=== PATIENT | female | born 1940 | race Caucasian/White ===

== ENCOUNTER → 2016-09-18 | Outpatient (CLI) | payer MEDICARE ==
[2016-09-18 18:58] LABS: BLOOD UREA NITROGEN 14 MG/DL (7-18); CREATININE FOR GFR 0.71 MG/DL (0.55-1.02); GLOMERULAR FILTRATION RATE > 60.0 (>39)
== END ==
LOC: M SMT 11:01
PROVIDERS: ATTEND Orthopaedic Surgery
DX: M65.812 Other synovitis and tenosynovitis, left shoulder (principal)

== ENCOUNTER → 2016-10-07 | Outpatient (REF) | payer MEDICARE | LOC: M LAB REF 12:50 | PROVIDERS: ATTEND Internal Medicine Medical Oncology | DX: C50.919 Malignant neoplasm of unspecified site of unspecified female breast (principal) ==

== ENCOUNTER → 2016-10-16 | Outpatient (CLI) | payer MEDICARE ==
--- NOTE | 2016-10-16 13:25 | REP ---
PET/CT: History: Restaging breast carcinoma. Comparisons: Comparison radionuclide bone scan April 01, 2016. Comparison CT study of the abdomen and pelvis August 18, 2015. TECHNIQUE: 89 minutes following the intravenous injection of a 8.3 mCi dose of F-18 FDG, three-dimensional PET scintigraphy is acquired from the skull base to the proximal thighs. Triplanar noncontrast CT scanning is acquired through the same anatomic range for attenuation correction, and image registration with scan parameters optimized to minimize radiation exposure to the patient. PET scintigraphy and CT datasets were fused and displayed on a workstation with multiplanar and projection display capability. PET/CT Findings: The head and neck soft tissues are unremarkable. No abnormal hypermetabolic uptake is seen within the thorax. CT study shows an old healed fracture of the right clavicle. No abnormal hypermetabolic rib or spine uptake is appreciated. No abnormal pulmonary parenchymal hypermetabolic uptake is seen. In the abdomen and pelvis, normal hepatic, splenic, gastrointestinal, and genitourinary FDG accumulation is seen. There is diffuse skin thickening of the left breast with non-hypermetabolic FDG accumulation. Impression: Negative PET scintigraphy. No PET/CT evidence of metastatic disease. Signed by Jovan Miner MD 10/16/2016 10:46 P
== END ==
LOC: M RAD 09:12
PROVIDERS: ATTEND Internal Medicine Medical Oncology
DX: C50.911 Malignant neoplasm of unspecified site of right female breast (principal)
CPT/HCPCS: 78815; A9552

== ENCOUNTER → 2016-10-18 | Outpatient (CLI) | payer MEDICARE ==
--- NOTE | 2016-10-23 10:12 | RADONC ---
RADIATION ONCOLOGY CONSULTATION NOTE: DATE OF SERVICE: 10/18/2016 DIAGNOSIS: Breast cancer. STAGE: Stage is IV ECOG PERFORMANCE STATUS: 1 Ms. 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 HISTORY OF PRESENT ILLNESS: The patient's history is quite complex. She has had multiple malignancies and has removed from state to state. She has been treated in numerous different medical oncology and radiation oncology sites. I do not have any of the actual information regarding these treatments at this time other than one report of treatment to her right clavicle for bone metastasis in the year 1998. To my understanding, a brief summary goes as follows: Apparently in 1996, the patient was found to have a left breast cancer. She was treated for that. Two years later, she developed bone metastases and was treated by a Dr. Irwin Hurtado to a dose of 4000 cGy to her right clavicle. Treatment was completed on December 15, 1998. Her medical oncologist at that time was Dr. Amparo Valiente in [place]. The patient subsequently was found to have a colon cancer in the year 1999 and underwent surgery with full resection. According to the patient, there was no postoperative radiation or chemo given. She reports that this surgery was done at [place]. Apparently the patient did well until 2005 when she developed right-sided breast cancer. She did receive some type of chemotherapy, according to the patient, in [place]. Somewhere intermixed in this, the patient says she was treated in [place] as well. She is now presenting with pain in the left upper humeral region. Once again in summary, the patient was treated of multiple centers and multiple studies in [facility], [place] and [place]. We are having a very difficult time obtaining records for a consistent history. At the present time, we do know that the patient has pain in her right proximal humerus and has had a diagnosis of breast cancer since 1996, which has been metastatic since at least 1998 for a 20-year history of breast cancer. PAST MEDICAL HISTORY: The patient's past medical history, besides her multiple malignancies, is positive for arthritis and bronchitis. The patient's past medical history in addition the above, is positive for a lymphoma of the skin in 1969, a hysterectomy in 1977, some type of exploratory surgery of the bladder in 1982 as well as her colon surgeries and breast history. She does note history of a broken left femur for which she had a jean carlos placed in the left femur. ALLERGIES: The patient is allergic to NAPROSYN, IBUPROFEN, FENTANYL patches, CIPRO, NITROFURANTOIN, CODEINE, PENICILLIN, DEMEROL, CIPRO, ANASTROZOLE and DETROL. SOCIAL HISTORY: The patient has smoked one pack of cigarettes per day for 40 years. She does not abuse alcohol. FAMILY HISTORY: The patient's family history is positive for a brother with colon cancer and a sister with some type of brain tumor. She also has a sister with cervical . REVIEW OF SYSTEMS: The patient's review of systems is positive for dry skin, anxiety, weakness in her left arm and shoulder and numbness in her left hand as well as decreased energy. It is otherwise noncontributory. She denies nausea, vomiting, fevers, chills, night sweats, opiate headaches, anorexia, weight loss, chest pain, urinary or bowel difficulties or neurological problems. PHYSICAL EXAMINATION: The patient is a well-developed, well-nourished female in no acute distress. HEENT exam is normocephalic, atraumatic. Extraocular movements are intact. There is no palpable cervical, supraclavicular, infraclavicular, axillary, or inguinal lymphadenopathy present. Lungs are clear to auscultation and percussion. Heart has a regular rate and rhythm. Abdomen is benign with no hepatosplenomegaly, masses, or tenderness. Skeletal examination: There is acute tenderness present over the proximal left humerus. There is no other tenderness present over the skeletal system. Extremities reveal no clubbing, cyanosis, or edema. Neurologic exam is grossly intact, as is the remainder of the physical examination. ASSESSMENT: At this time, I do believe this patient is a candidate for palliative radiation therapy to her left humerus. I do not, at the present time, have her full radiation records. I do not have radiation records of the right breast or the left breast. I do not have her chemotherapy records. I do not have a CD of the MRI done at [facility] showing her humeral lesion. And in addition, we have been calling various sites where we have been told there are no records. Of course these records now can be up to 20 years old. This is making this quite difficult. Once we obtain all records, I am scheduling the patient for CT simulation of her left humeral field. I explained to the patient in detail the potential benefits as well as possible acute and chronic sequelae of external beam radiation therapy. We discussed logistics of treatment planning, simulation, subsequent fractionated daily radiation treatments. Thank you for allowing us to participate in the care of this complicated case. I will keep you informed as to any new developments as they occur. As always warm regards, cc: *America Varghese, DO
== END ==
LOC: M ONCR 10:55
PROVIDERS: ATTEND Radiology Radiation Oncology
DX: C50.911 Malignant neoplasm of unspecified site of right female breast (principal)

== ENCOUNTER 2016-10-24 08:40 | Outpatient (RCR) | payer MEDICARE ==
--- NOTE | 2016-10-24 09:59 | RADONC ---
RADIATION ONCOLOGY SIMULATION NOTE: DATE: 10/24/2016 CHART NO: [id number] Ms. French was taken to the CT scan for CT simulation of her left humerus field. We attempted to make an immobilization device as well. I was physically present throughout this process. Unfortunately, we had difficulty having the patient fit into our small-bore CT scan. In addition, without the ability to use a breast board, we were unable to remove the patient's treated breast from potential radiation field of the humerus. The breast was laying right over the humerus. In addition, although I do not have the radiation records, we could see radiation telangiectasia and radiation skin changes present over the entire left breast including quite near our radiation field We, therefore, aborted our attempt at simulation this time. We will be bringing the patient to the linear accelerator in an attempt to undertake clinical two-dimensional simulation. This should allow us to give the patient the ability to lay in a more comfortable position and perhaps use a breast board. This will facilitate the ability to remove the treated breast from our radiation field. I am scheduling this new simulation for next week. That will allow us further time to attempt and obtain the records of her radiation which was delivered 20 years ago in 1996. I am not optimistic that those records will be available to us. If we cannot obtain those records, greater care will need to be undertaken to avoid any potential overlap. The humerus should not have been anywhere within the previous radiated field.
--- NOTE | 2016-11-02 15:00 | RADONC ---
RADIATION ONCOLOGY DATE: 10/31/2016 SIMULATION NOTE CHART NUMBER: [id number] Ms. French was taken to the linear accelerator today for simulation of her left humeral field. Simulation was accomplished, but took quite some time. An immobilization device was created and will be used throughout the course of treatment. Once again, I was physically present throughout the course of traditional simulation.
--- NOTE | 2016-11-12 09:19 | RADONC ---
RADIATION ONCOLOGY PROGRESS NOTE: DATE: 11/11/2016 CHART NO: [id number] REVIEW OF SYSTEMS: Ms. French underwent her first fraction of 300 cGy to her left humerus today. It was tolerated without difficulty or discomfort. The patient's review of systems continues to be positive for pain in the left humeral area. She denies nausea, vomiting, fevers, chills, night sweats, diplopia, headaches, anxiety or depression, anorexia, weight loss, visual disturbances, chest pain, urinary or bowel difficulties, bone pain, or neurological problems. PHYSICAL EXAMINATION: The patient's skin clearly showed no evidence of radiation change present. The remainder of her physical exam remains unchanged as well. Ms. French tolerated her treatment quite well and radiation will continue as scheduled.
== END 2016-11-17 ==
LOC: M ONCR 08:40
PROVIDERS: ATTEND Radiology Radiation Oncology
DX: C79.51 Secondary malignant neoplasm of bone (principal); C50.911 Malignant neoplasm of unspecified site of right female breast; C50.912 Malignant neoplasm of unspecified site of left female breast

== ENCOUNTER → 2016-10-24 | Outpatient (CLI) | payer MEDICARE | LOC: M RAD 08:20 | PROVIDERS: ATTEND Radiology Radiation Oncology | DX: C50.919 Malignant neoplasm of unspecified site of unspecified female breast (principal) ==

== ENCOUNTER 2016-11-18 13:42 | Outpatient (RCR) | payer MEDICARE ==
--- NOTE | 2016-11-18 14:23 | RADONC ---
RADIATION ONCOLOGY DATE: 11/18/2016 CHART NUMBER: [id number] PROGRESS NOTE Ms. French is presently at a dose of 1800 cGy to her left humerus and is tolerating treatments quite well at this point with no complaints related to her radiation therapy. She is having no skin discomfort or other problems. The patient reports that her pain is improved significantly after just a few treatments. REVIEW OF SYSTEMS: The patient's review of systems is generally noncontributory. Denies nausea, vomiting, fevers, chills, night sweats, diplopia, headaches, anxiety or depression, anorexia, weight loss, visual disturbances, chest pain, urinary or bowel difficulties, bone pain, or neurological problems. PHYSICAL EXAMINATION: The patient's skin is in good condition with no evidence of radiation change present. There is no moist or dry desquamation. The remainder of her physical exam remains unchanged. Ms. French is tolerating treatments quite well and radiation will continue as scheduled.
--- NOTE | 2016-11-25 11:39 | RADONC ---
RADIATION ONCOLOGY TREATMENT SUMMARY: DATE: 11/25/2016 CHART NO: [id number] DIAGNOSIS: Breast cancer. STAGE: IV ECOG PERFORMANCE STATUS: 1 Ms. French is a pleasant 75-year-old white female with metastatic breast cancer who presented to us for consideration of palliative radiation therapy to her left humerus. Her history is complicated and we are still attempting to obtain some records of her previous treatment but we have been unsuccessful so far. We treated the patient to her left humerus for a dose of 3000 cGy delivered in 10 fractions of 300 cGy each over 11 elapsed days from 11/11/2016 through 11/22/2016. The patient's left humerus was treated on a linear accelerator utilizing an 18 MV photon beam via left anterior oblique and right posterior oblique machuca. Care was taken to come off the previously irradiated left breast region. Ms. French tolerated her treatments quite well and was able to complete therapy as prescribed without interruption. The patient did note a marked improvement to total resolution of her left humerus pain by completion of therapy. I have scheduled the patient to see me again in 1 month for further followup. She will also continue to be followed by her other physicians as well. cc: Melita Mondragon MD *America Varghese DO
== END 2016-12-18 ==
LOC: M ONCR 13:42
PROVIDERS: ATTEND Radiology Radiation Oncology
DX: C79.51 Secondary malignant neoplasm of bone (principal); C50.911 Malignant neoplasm of unspecified site of right female breast; C50.912 Malignant neoplasm of unspecified site of left female breast

== ENCOUNTER → 2016-12-23 | Outpatient (REF) | payer MEDICARE | LOC: M LAB REF 12:38 | PROVIDERS: ATTEND Internal Medicine Medical Oncology | DX: C50.919 Malignant neoplasm of unspecified site of unspecified female breast (principal) ==

== ENCOUNTER → 2017-01-01 | Outpatient (CLI) | payer MEDICARE ==
--- NOTE | 2017-01-02 09:51 | RADONC ---
RADIATION ONCOLOGY FOLLOWUP NOTE DATE: 01/01/2017 CHART NUMBER: [id number] DIAGNOSIS: Breast cancer. STAGE: IV. ECOG performance status one. FOLLOW UP NOTE: Ms. French is a very pleasant 76-year-old white female with the diagnosis of metastatic breast cancer who is presenting to us today for routine followup visit 1 month post completion of palliative radiation therapy to her left humerus. The patient presents today reporting that her humeral pain has decreased significantly. She is now able to move her arm, although her range of motion is not totally returned to normal yet. It has improved significantly. The patient's review of systems is positive for her continued difficulty with range of motion and some discomfort in her left humerus, but is largely otherwise noncontributory. Denies nausea, vomiting, fevers, chills, night sweats, diplopia, headaches, anxiety or depression, anorexia, weight loss, visual disturbances, chest pain, urinary or bowel difficulties, bone pain, or neurological problems. PHYSICAL EXAMINATION: The patient is a well-developed, well-nourished, 76-year-old female in no acute distress. HEENT exam is normocephalic, atraumatic. Extraocular movements are intact. There is no palpable cervical, supraclavicular, infraclavicular, axillary, or inguinal lymphadenopathy present. Lungs are clear to auscultation and percussion. Heart has a regular rate and rhythm. Abdomen is benign with no hepatosplenomegaly, masses, or tenderness. Skeletal examination reveals no tenderness to pressure or percussion of the bony skeleton. Extremities reveal limited range of motion of her left upper extremity. No clubbing, cyanosis, or edema. Neurologic exam is grossly intact, as is the remainder of the physical examination. ASSESSMENT: The patient has clinically responded nicely to her radiation. She is presently being managed closely by her medical oncologist, Dr. Mondragon. I have scheduled her to see me again in 3 months for further followup. cc: MD America Leija DO MTDD
== END ==
LOC: M ONCR 15:07
PROVIDERS: ATTEND Radiology Radiation Oncology
DX: C50.911 Malignant neoplasm of unspecified site of right female breast (principal); C50.912 Malignant neoplasm of unspecified site of left female breast; C79.51 Secondary malignant neoplasm of bone

== ENCOUNTER → 2017-02-28 | Outpatient (CLI) | payer MEDICARE ==
[2017-02-28 14:34] LABS: ALBUMIN 3.6 GM/DL (3.2-5.2); ALBUMIN/GLOBULIN RATIO 1.33 (1.00-1.93); ALKALINE PHOSPHATASE 55 U/L (45-117); ALT/SGPT 19 U/L (12-78); ANION GAP 9 MEQ/L (8-16); AST/SGOT 12 U/L (15-37); BILIRUBIN,TOTAL 0.4 MG/DL (0.2-1.0); BLOOD UREA NITROGEN 22 MG/DL (7-18); CALCIUM LEVEL 8.6 MG/DL (8.8-10.2); CARBON DIOXIDE LEVEL 25 MEQ/L (21-32); CHLORIDE LEVEL 110 MEQ/L (98-107); CHOLESTEROL LEVEL 217 MG/DL (<200); FREE T4 1.07 NG/DL (0.76-1.46); GLOMERULAR FILTRATION RATE > 60.0 (>39); GLUCOSE, FASTING 147 MG/DL (83-110); POTASSIUM SERUM 4.6 MEQ/L (3.5-5.1); SODIUM LEVEL 144 MEQ/L (136-145); TOTAL PROTEIN 6.3 GM/DL (6.4-8.2); TRIGLYCERIDES LEVEL 137 MG/DL (<150)
== END ==
LOC: M SMT 10:41
PROVIDERS: ATTEND Family Medicine
DX: E11.42 Type 2 diabetes mellitus with diabetic polyneuropathy (principal); E78.2 Mixed hyperlipidemia

== ENCOUNTER → 2017-03-17 | Outpatient (REF) | payer MEDICARE | LOC: M LAB REF 16:25 | PROVIDERS: ATTEND Internal Medicine Medical Oncology | DX: C50.911 Malignant neoplasm of unspecified site of right female breast (principal) ==

== ENCOUNTER → 2017-04-08 | Outpatient (CLI) | payer MEDICARE ==
--- NOTE | 2017-04-08 15:00 | REP ---
PET/CT: History: Restaging breast carcinoma. Comparisons: Comparison PET/CT October 16, 2016. TECHNIQUE: 54 minutes following the intravenous injection of a 8.8 mCi dose of F-18 FDG, three-dimensional PET scintigraphy is acquired from the skull base to the proximal thighs. Triplanar noncontrast CT scanning is acquired through the same anatomic range for attenuation correction, and image registration with scan parameters optimized to minimize radiation exposure to the patient. PET scintigraphy and CT datasets were fused and displayed on a workstation with multiplanar and projection display capability. PET/CT Findings: There is no abnormal hypermetabolic uptake within the thorax. Post-treatment changes are noted in the left breast and an area of dystrophic calcification is noted in the right breast. Old healed rib fractures are noted. An old healed right clavicle fracture is visible. No abnormal skeletal hypermetabolic uptake is seen. In the abdomen and pelvis normal FDG distribution is seen. Impression: No abnormal hypermetabolic uptake seen. Signed by Jovan iMner MD 04/08/2017 03:54 P
== END ==
LOC: M PLARAD 11:25
PROVIDERS: ATTEND Internal Medicine Medical Oncology
DX: C50.911 Malignant neoplasm of unspecified site of right female breast (principal)
CPT/HCPCS: 78815; A9552

== ENCOUNTER → 2017-04-11 | Outpatient (CLI) | payer MEDICARE ==
--- NOTE | 2017-04-11 14:09 | REP ---
Whole body radionuclide bone scan: History: Restaging breast cancer. Comparison bone scan study April 01, 2016. Technique: 21.9 mCi technetium 99m MDP is injected and standard whole body bone scan imaging was acquired. Scintigraphic findings: There is normal distribution of skeletal tracer with uptake in bilateral kidneys and in the urinary bladder. Arthritic uptake is seen in the knees, shoulders, wrists, and in each midfoot unchanged from comparison study. There is degenerative uptake in the lower thoracic and lower lumbar spine as before. Right posterior 9th rib uptake is again seen unchanged. Right clavicle uptake is again noted. No new area of increased uptake is seen. Impression: Findings unchanged. No new area of increased uptake is seen to suggest metastatic disease. Signed by Jovan Miner MD 04/11/2017 03:22 P
== END ==
LOC: M RAD 09:32
PROVIDERS: ATTEND Internal Medicine Medical Oncology
DX: C50.912 Malignant neoplasm of unspecified site of left female breast (principal)
CPT/HCPCS: 78306; A9503

== ENCOUNTER → 2017-04-23 | Outpatient (CLI) | payer MEDICARE ==
--- NOTE | 2017-04-23 13:18 | RADONC ---
RADIATION ONCOLOGY FOLLOWUP DATE: 04/23/2017 CHART NUMBER: [id number] DIAGNOSIS: Breast cancer STAGE: IV ECOG PERFORMANCE STATUS: 1. FOLLOWUP NOTE: Ms. French is a 76-year-old white female with the diagnosis of metastatic breast cancer who is presenting to us today for routine followup visit 5 months post completion of palliative radiation therapy to her left humerus. The patient presents today reporting that generally she is stable with regard to her humeral discomfort. She does have some limited range of motion. She reports that the pain, however is better. She has no new complaints of bone pain. The patient had a lengthy discussion once again reporting that she wishes to change medical oncologists again and perhaps go back to [place]. She apparently is having some communication problems. REVIEW OF SYSTEMS: The patient's review of systems is positive for the physical limitations secondary to her age, as well as decreased range of motion and discomfort secondary to her metastatic bone disease, but is otherwise noncontributory. She denies nausea, vomiting, fevers, chills, night sweats, diplopia, headaches, anxiety or depression, anorexia or weight loss, visual disturbances, chest pain, urinary or bowel difficulties or neurological problems. PHYSICAL EXAMINATION: The patient is an elderly, white female in no acute distress. HEENT exam is normocephalic, atraumatic. Extraocular movements are intact. There is no palpable cervical, supraclavicular, infraclavicular or axillary lymphadenopathy present. Lungs are generally clear to auscultation and percussion. Heart has regular rate and rhythm. ASSESSMENT: The patient has no radiation issues at this time and is being seen by our colleagues in medical oncology on a routine basis. Since she is being followed and managed so closely by medical oncology, I have discharged her from our followup except on a p.r.n. basis. I did try and encourage her to stay with her medical oncologist for the simple reasons that she has changed doctors so many times and her record is so broken up that I continue to be concerned with continuity of care. In addition, the winter is coming and she has difficulties with transportation. Returning to [place] would be a bit of a burden. Clearly, however, the patient needs to be comfortable with her provider and feel secure in their care. I have highly recommended that she return to medical oncology and discuss her concerns so that a better working relationship can be achieved. I do personally think that she would be better served here than changing physicians again. cc: MD America Heredia, DO
== END ==
LOC: M ONCR 10:18
PROVIDERS: ATTEND Radiology Radiation Oncology
DX: C50.911 Malignant neoplasm of unspecified site of right female breast (principal); C50.912 Malignant neoplasm of unspecified site of left female breast; C79.51 Secondary malignant neoplasm of bone

== ENCOUNTER → 2017-06-16 | Outpatient (CLI) | payer MEDICARE ==
[2017-06-16 14:00] LABS: ALBUMIN 3.5 GM/DL (3.2-5.2); ALBUMIN/GLOBULIN RATIO 1.25 (1.00-1.93); ALKALINE PHOSPHATASE 49 U/L (45-117); ALT/SGPT 20 U/L (12-78); ANION GAP 10 MEQ/L (8-16); AST/SGOT 12 U/L (7-37); BILIRUBIN,TOTAL 0.5 MG/DL (0.2-1.0); BLOOD UREA NITROGEN 17 MG/DL (7-18); CALCIUM LEVEL 9.1 MG/DL (8.8-10.2); CARBON DIOXIDE LEVEL 25 MEQ/L (21-32); CHLORIDE LEVEL 106 MEQ/L (98-107); CHOLESTEROL LEVEL 212 MG/DL (<200); FREE T4 1.01 NG/DL (0.76-1.46); GLOMERULAR FILTRATION RATE > 60.0 (>39); GLUCOSE, FASTING 177 MG/DL (83-110); POTASSIUM SERUM 4.3 MEQ/L (3.5-5.1); SODIUM LEVEL 141 MEQ/L (136-145); TOTAL PROTEIN 6.3 GM/DL (6.4-8.2); TRIGLYCERIDES LEVEL 194 MG/DL (<150)
== END ==
LOC: M SMT 08:12
PROVIDERS: ATTEND Family Medicine
DX: E11.42 Type 2 diabetes mellitus with diabetic polyneuropathy (principal); E78.2 Mixed hyperlipidemia

== ENCOUNTER → 2017-10-14 | Outpatient (REF) | payer MEDICARE | LOC: M LAB REF 18:01 | DX: D23.12 Other benign neoplasm of skin of left eyelid, including canthus (principal) | CPT/HCPCS: 88304 ==

== ENCOUNTER → 2017-11-11 | Outpatient (CLI) | payer MEDICARE ==
[2017-11-11 14:14] LABS: BASO # 0.1 10^3/uL (0.0-0.2); BASO % 1.1 % (0.0-1.0); EOS # 0.3 10^3/uL (0.0-0.50); HEMATOCRIT 46.7 % (36.0-47.0); HEMOGLOBIN 15.5 g/dl (12.0-15.5); IMMATURE GRANULOCYTE % 0.3 % (0-3.0); LYMPH % 32.9 % (24.0-44.0); MEAN CORPUSCULAR HEMOGLOBIN 30.2 pg (27.0-33.0); MEAN CORPUSCULAR HGB CONC 33.2 g/dl (32.0-36.5); MEAN CORPUSCULAR VOLUME 90.9 fl (80.0-96.0); MONO # 0.9 10^3/uL (0.0-0.8); NEUTROPHILS # 4.9 10^3/uL (1.8-7.7); NEUTROPHILS % 52.7 % (36.0-66.0); PLATELET COUNT, AUTOMATED 313 10^3/uL (150-450); RED BLOOD COUNT 5.14 10^6/uL (4.00-5.40); RED CELL DISTRIBUTION WIDTH 13.6 % (11.5-14.5); WHITE BLOOD COUNT 9.2 10^3/uL (4.0-10.0)
[2017-11-11 15:38] LABS: ALBUMIN 3.9 GM/DL (3.2-5.2); ALKALINE PHOSPHATASE 57 U/L (45-117); ALT/SGPT 22 U/L (12-78); ANION GAP 8 MEQ/L (8-16); AST/SGOT 13 U/L (7-37); BILIRUBIN,TOTAL 0.4 MG/DL (0.2-1.0); BLOOD UREA NITROGEN 19 MG/DL (7-18); CARBON DIOXIDE LEVEL 26 MEQ/L (21-32); CHLORIDE LEVEL 106 MEQ/L (98-107); CREATININE FOR GFR 0.76 MG/DL (0.55-1.30); GLOMERULAR FILTRATION RATE > 60.0 (>39); GLUCOSE, FASTING 169 MG/DL (70-100); POTASSIUM SERUM 4.4 MEQ/L (3.5-5.1); SODIUM LEVEL 140 MEQ/L (136-145); TOTAL PROTEIN 6.9 GM/DL (6.4-8.2)
[2017-11-11 16:41] LABS: ESTIMATED AVERAGE GLUCOSE 163 MG/DL (60-110); HEMOGLOBIN A1c 7.3 %
== END ==
LOC: M SMT 08:24
DX: E11.42 Type 2 diabetes mellitus with diabetic polyneuropathy (principal); E78.2 Mixed hyperlipidemia; M54.5 Low back pain; R14.0 Abdominal distension (gaseous)
CPT/HCPCS: 80053

== ENCOUNTER → 2017-12-08 | Outpatient (CLI) | payer MEDICARE ==
[2017-12-08 14:50] LABS: FREE T4 1.03 NG/DL (0.76-1.46); THYROID STIMULATING HORMONE 0.828 uIU/ML (0.358-3.740)
== END ==
LOC: M SMT 12:06
DX: L29.8 Other pruritus (principal); M54.5 Low back pain; R14.0 Abdominal distension (gaseous); Z79.899 Other long term (current) drug therapy
CPT/HCPCS: 84443

== ENCOUNTER → 2018-06-29 | Outpatient (CLI) | payer MEDICARE ==
[2018-06-29 13:23] LABS: BASO # 0.1 10^3/uL (0.0-0.2); EOS # 0.3 10^3/uL (0.0-0.50); EOS % 3.2 % (0.0-3.0); HEMATOCRIT 48.3 % (36.0-47.0); HEMOGLOBIN 16.2 g/dl (12.0-15.5); IMMATURE GRANULOCYTE % 0.4 % (0-3.0); LYMPH # 3.1 10^3/uL (1.5-4.5); LYMPH % 28.7 % (24.0-44.0); MEAN CORPUSCULAR HGB CONC 33.5 g/dl (32.0-36.5); MEAN CORPUSCULAR VOLUME 89.4 fl (80.0-96.0); MONO # 0.9 10^3/uL (0.0-0.8); MONO % 8.5 % (0.0-5.0); NEUTROPHILS # 6.2 10^3/uL (1.8-7.7); NEUTROPHILS % 58.2 % (36.0-66.0); PLATELET COUNT, AUTOMATED 312 10^3/uL (150-450); RED CELL DISTRIBUTION WIDTH 13.7 % (11.5-14.5); WHITE BLOOD COUNT 10.7 10^3/uL (4.0-10.0)
[2018-06-29 13:38] LABS: ALBUMIN 3.7 GM/DL (3.2-5.2); ALBUMIN/GLOBULIN RATIO 1.28 (1.00-1.93); ALKALINE PHOSPHATASE 73 U/L (45-117); ALT/SGPT 25 U/L (12-78); ANION GAP 8 MEQ/L (8-16); AST/SGOT 15 U/L (7-37); BILIRUBIN,TOTAL 0.4 MG/DL (0.2-1.0); BLOOD UREA NITROGEN 23 MG/DL (7-18); CALCIUM LEVEL 9.8 MG/DL (8.8-10.2); CARBON DIOXIDE LEVEL 34 MEQ/L (21-32); CHLORIDE LEVEL 97 MEQ/L (98-107); CHOLESTEROL LEVEL 197 MG/DL (<200); CHOLESTEROL RISK RATIO 4.191 (<5); GLOMERULAR FILTRATION RATE > 60.0 (>39); GLUCOSE, FASTING 156 MG/DL (70-100); HDL CHOLESTEROL 47 MG/DL (>40); LDL CHOLESTEROL 118 MG/DL (<100); NON-HDL-C 150 MG/DL; POTASSIUM SERUM 3.9 MEQ/L (3.5-5.1); SODIUM LEVEL 139 MEQ/L (136-145); TOTAL PROTEIN 6.6 GM/DL (6.4-8.2); TRIGLYCERIDES LEVEL 161 MG/DL (<150)
[2018-06-29 13:58] LABS: MALB URINE SIEMENS 13.2 MG/L; MAU/CREAT RATIO 7.5 MCG/MG (0.0-30.0)
[2018-06-29 14:23] LABS: ESTIMATED AVERAGE GLUCOSE 177 MG/DL (60-110); HEMOGLOBIN A1c 7.8 %
== END ==
LOC: M SMT 09:34
DX: E11.42 Type 2 diabetes mellitus with diabetic polyneuropathy (principal); E78.5 Hyperlipidemia, unspecified
CPT/HCPCS: 84443

== ENCOUNTER → 2018-07-01 | Outpatient (REF) | payer MEDICARE ==
[2018-07-01 15:57] LABS: CREATININE FOR GFR 0.75 MG/DL (0.55-1.30); GLOMERULAR FILTRATION RATE > 60.0 (>39)
[2018-07-01 15:57] LABS: BLOOD UREA NITROGEN 16 MG/DL (7-18)
== END ==
LOC: M LABDRAW1 11:39
DX: M65.812 Other synovitis and tenosynovitis, left shoulder (principal)
CPT/HCPCS: 82565

== ENCOUNTER → 2018-09-08 | Outpatient (CLI) | payer MEDICARE ==
--- NOTE | 2018-09-08 20:54 | REP ---
Whole body radio nuclide PET CT scan for restaging of bilateral breast carcinoma with skeletal metastases: Comparison is 03/08/2017. Whole-body scanning is performed from skull base to the upper thighs. Neck and supraclavicular areas: There are no hypermetabolic foci. Chest: There is a soft tissue hypermetabolic uptake in paraspinous muscles on the right from the approximate T9 level of the approximate T11 level. This is nonspecific and could represent soft tissue metastatic disease versus muscular injury or strain. No skeletal uptake is identified. No other foci in the chest are identified. Abdomen, pelvis and upper thighs: There is nonspecific bowel uptake. No hypermetabolic foci are identified. Specifically no skeletal foci are identified. There is an intramedullary jean carlos in the left hip, unchanged. Impression: There is hypermetabolic uptake in paraspinous muscles of the chest on the right extending from the approximate T9 level to the approximate T11 level. This is nonspecific as discussed. No other hypermetabolic foci are identified. No skeletal foci are identified. The study is performed with 9.3 mCi of F 18 FDG. Electronically Signed by Liu Beltrán MD 09/08/2018 08:45 P
== END ==
LOC: M PLARAD 15:16
DX: C79.51 Secondary malignant neoplasm of bone (principal); Z85.3 Personal history of malignant neoplasm of breast
CPT/HCPCS: 78815; A9552

== ENCOUNTER → 2018-09-22 | Outpatient (CLI) | payer MEDICARE ==
[2018-09-22 13:21] LABS: BASO # 0.1 10^3/uL (0.0-0.2); BASO % 0.8 % (0.0-1.0); EOS # 0.3 10^3/uL (0.0-0.50); EOS % 2.7 % (0.0-3.0); HEMATOCRIT 44.7 % (36.0-47.0); HEMOGLOBIN 15.1 g/dl (12.0-15.5); LYMPH # 2.4 10^3/uL (1.5-4.5); LYMPH % 22.8 % (24.0-44.0); MEAN CORPUSCULAR HEMOGLOBIN 30.3 pg (27.0-33.0); MEAN CORPUSCULAR HGB CONC 33.8 g/dl (32.0-36.5); MEAN CORPUSCULAR VOLUME 89.8 fl (80.0-96.0); MONO # 0.9 10^3/uL (0.0-0.8); MONO % 8.6 % (0.0-5.0); NEUTROPHILS # 6.8 10^3/uL (1.8-7.7); NEUTROPHILS % 64.8 % (36.0-66.0); PLATELET COUNT, AUTOMATED 347 10^3/uL (150-450); RED BLOOD COUNT 4.98 10^6/uL (4.00-5.40); WHITE BLOOD COUNT 10.5 10^3/uL (4.0-10.0)
[2018-09-22 13:56] LABS: ALBUMIN 3.6 GM/DL (3.2-5.2); ALT/SGPT 22 U/L (12-78); BILIRUBIN,TOTAL 0.5 MG/DL (0.2-1.0); BLOOD UREA NITROGEN 23 MG/DL (7-18); CARBON DIOXIDE LEVEL 30 MEQ/L (21-32); CHLORIDE LEVEL 101 MEQ/L (98-107); CREATININE FOR GFR 0.81 MG/DL (0.55-1.30); GLOMERULAR FILTRATION RATE > 60.0 (>39); GLUCOSE, FASTING 147 MG/DL (70-100); POTASSIUM SERUM 4.3 MEQ/L (3.5-5.1); SODIUM LEVEL 140 MEQ/L (136-145); TOTAL PROTEIN 6.5 GM/DL (6.4-8.2)
[2018-09-22 15:20] LABS: HEMOGLOBIN A1c 7.6 %
== END ==
LOC: M SMT 10:00
PROVIDERS: ATTEND Family Medicine
DX: E11.42 Type 2 diabetes mellitus with diabetic polyneuropathy (principal)

== ENCOUNTER → 2018-10-23 | Outpatient (CLI) | payer MEDICARE ==
--- NOTE | 2018-10-23 15:03 | REP ---
MR BRAIN WITHOUT AND WITH CONTRAST: HISTORY: Breast carcinoma. CONTRAST: ProHance 7 mL. Areas of increased signal intensity on T2-weighted images are present in the periventricular and subcortical white matter and jeffrey. This represents small vessel ischemic disease. There is no intraparenchymal hemorrhage, infarct, mass, or midline shift. There is no abnormal enhancement. The ventricular system and cortical sulci are dilated consistent with mild volume loss. There is on extracerebral collection. The visualized sinuses are clear. IMPRESSION: 1. Small vessel ischemic disease. 2. Mild volume loss. Electronically Signed by Wang Pizano MD 10/23/2018 03:09 P
== END ==
LOC: M PLARAD 13:05
PROVIDERS: ATTEND Physician Assistant
DX: I67.82 Cerebral ischemia (principal); G31.9 Degenerative disease of nervous system, unspecified

== ENCOUNTER → 2018-12-23 | Outpatient (CLI) | payer MEDICARE ==
--- NOTE | 2018-12-23 10:44 | REP ---
REASON: Constipation and history of colon cancer. COMPARISON: 12/08/2017, which was nonspecific. Supine and upright views of the abdomen were obtained. The intestinal gas pattern is nonspecific. There is a moderate amount of stool seen throughout the colon. There is no free intraperitoneal air. The organ silhouettes insofar as delineated are unremarkable. There is no change in the osseous structures. IMPRESSION: Nonspecific findings as described above. Electronically Signed by Margarito Ruiz DO 12/23/2018 10:48 A
[2018-12-23 13:21] LABS: BASO # 0.1 10^3/uL (0.0-0.2); BASO % 0.9 % (0.0-1.0); EOS # 0.4 10^3/uL (0.0-0.50); EOS % 3.6 % (0.0-3.0); HEMATOCRIT 47.3 % (36.0-47.0); LYMPH # 2.6 10^3/uL (1.5-4.5); LYMPH % 23.9 % (24.0-44.0); MEAN CORPUSCULAR HEMOGLOBIN 30.7 pg (27.0-33.0); MEAN CORPUSCULAR HGB CONC 33.8 g/dl (32.0-36.5); MEAN CORPUSCULAR VOLUME 90.6 fl (80.0-96.0); NEUTROPHILS # 6.7 10^3/uL (1.8-7.7); NEUTROPHILS % 62.3 % (36.0-66.0); PLATELET COUNT, AUTOMATED 341 10^3/uL (150-450); RED BLOOD COUNT 5.22 10^6/uL (4.00-5.40); WHITE BLOOD COUNT 10.7 10^3/uL (4.0-10.0)
[2018-12-23 13:42] LABS: HEMOGLOBIN A1c 7.8 %
[2018-12-23 13:52] LABS: ALBUMIN 3.5 GM/DL (3.2-5.2); BILIRUBIN,TOTAL 0.3 MG/DL (0.2-1.0); CALCIUM LEVEL 8.8 MG/DL (8.8-10.2); CHOLESTEROL RISK RATIO 4.625 (<5); CREATININE FOR GFR 0.97 MG/DL (0.55-1.30); GLOMERULAR FILTRATION RATE 58.8 (>32); POTASSIUM SERUM 4.2 MEQ/L (3.5-5.1); TOTAL PROTEIN 6.8 GM/DL (6.4-8.2)
== END ==
LOC: M SMT 09:57
PROVIDERS: ATTEND Physician Assistant
DX: K59.00 Constipation, unspecified (principal); E11.42 Type 2 diabetes mellitus with diabetic polyneuropathy

== ENCOUNTER → 2018-12-30 | Outpatient (CLI) | payer MEDICARE ==
--- NOTE | 2018-12-30 10:57 | REP ---
LUMBAR SPINE, SIX VIEWS: HISTORY: Back pain. COMPARISON: 12/08/2017 There is no acute fracture. The L1-2, L4-5 and L5-S1 intervertebral discs are decreased in height. Vacuum phenomenon is present at the L5-S1 level. These findings are consistent with disc degeneration. Osteophytes are present on L1 and L2. There is narrowing of the L3-4 to L5-S1 facet joints with associated sclerosis. There are 3 mm of grade 1 spondylolisthesis of L5 on S1. This increases to 7 mm with flexion. IMPRESSION: Degenerative change as described above. Electronically Signed by Wang Pizano MD 12/30/2018 11:13 A
[2018-12-30 14:20] LABS: MALB URINE SIEMENS 31.2 MG/L; MAU/CREAT RATIO 15.6 MCG/MG (0.0-30.0)
== END ==
LOC: M SMT 10:13
PROVIDERS: ATTEND Family Medicine
DX: E11.42 Type 2 diabetes mellitus with diabetic polyneuropathy (principal); M51.36 Other intervertebral disc degeneration, lumbar region; M51.37 Other intervertebral disc degeneration, lumbosacral region; M25.78 Osteophyte, vertebrae; G95.89 Other specified diseases of spinal cord

== ENCOUNTER → 2019-05-10 | Outpatient (CLI) | payer MEDICARE ==
[2019-05-10 14:02] LABS: BASO # 0.1 10^3/uL (0.0-0.2); BASO % 0.8 % (0.0-1.0); EOS # 0.3 10^3/uL (0.0-0.5); EOS % 3.5 % (0.0-3.0); HEMOGLOBIN 15.3 g/dl (12.0-15.5); LYMPH # 2.3 10^3/uL (1.5-5.0); LYMPH % 25.4 % (24.0-44.0); MEAN CORPUSCULAR HEMOGLOBIN 30.8 pg (27.0-33.0); MEAN CORPUSCULAR HGB CONC 33.3 g/dl (32.0-36.5); MEAN CORPUSCULAR VOLUME 92.7 fl (80.0-96.0); MONO # 0.8 10^3/uL (0.0-0.8); MONO % 9.3 % (0.0-5.0); NEUTROPHILS # 5.5 10^3/uL (1.5-8.5); NEUTROPHILS % 60.6 % (36.0-66.0); PLATELET COUNT, AUTOMATED 338 10^3/uL (150-450); RED BLOOD COUNT 4.96 10^6/uL (4.00-5.40)
[2019-05-10 14:23] LABS: HEMOGLOBIN A1c 7.6 %
[2019-05-10 14:27] LABS: ALBUMIN 3.6 GM/DL (3.2-5.2); BILIRUBIN,TOTAL 0.4 MG/DL (0.2-1.0); CALCIUM LEVEL 8.9 MG/DL (8.8-10.2); CHOLESTEROL RISK RATIO 4.333 (<5); CREATININE FOR GFR 1.08 MG/DL (0.55-1.30); FREE T4 1.04 NG/DL (0.76-1.46); THYROID STIMULATING HORMONE 1.39 uIU/ML (0.358-3.740); TOTAL PROTEIN 6.6 GM/DL (6.4-8.2)
== END ==
LOC: M SMT 10:24
PROVIDERS: ATTEND Physician Assistant
DX: E11.42 Type 2 diabetes mellitus with diabetic polyneuropathy (principal); E78.2 Mixed hyperlipidemia; C79.51 Secondary malignant neoplasm of bone

== ENCOUNTER → 2019-07-27 | Outpatient (CLI) | payer MEDICARE ==
[~2019-07-27] MED LIST: PROHANCE 279.3MG/ML 15ML VIAL (A9576) As Ordered ONE; PROHANCE 279.3MG/ML 5ML VIAL (A9576) As Ordered ONE
[2019-07-27 13:04] LABS: BASO # 0.1 10^3/uL (0.0-0.2); BASO % 0.8 % (0.0-1.0); EOS # 0.4 10^3/uL (0.0-0.5); EOS % 3.2 % (0.0-3.0); HEMATOCRIT 45.6 % (36.0-47.0); HEMOGLOBIN 14.5 g/dl (12.0-15.5); LYMPH # 2.8 10^3/uL (1.5-5.0); LYMPH % 25.5 % (24.0-44.0); MEAN CORPUSCULAR HEMOGLOBIN 29.7 pg (27.0-33.0); MEAN CORPUSCULAR HGB CONC 31.8 g/dl (32.0-36.5); MEAN CORPUSCULAR VOLUME 93.4 fl (80.0-96.0); MONO # 0.9 10^3/uL (0.0-0.8); MONO % 8.6 % (0.0-5.0); NEUTROPHILS # 6.6 10^3/uL (1.5-8.5); NEUTROPHILS % 61.4 % (36.0-66.0); PLATELET COUNT, AUTOMATED 319 10^3/uL (150-450); RED BLOOD COUNT 4.88 10^6/uL (4.00-5.40); WHITE BLOOD COUNT 10.8 10^3/uL (4.0-10.0)
[2019-07-27 13:26] LABS: ALBUMIN 3.3 GM/DL (3.2-5.2); ALT/SGPT 19 U/L (12-78); BILIRUBIN,TOTAL 0.4 MG/DL (0.2-1.0); BLOOD UREA NITROGEN 14 MG/DL (7-18); CALCIUM LEVEL 8.8 MG/DL (8.8-10.2); CARBON DIOXIDE LEVEL 28 MEQ/L (21-32); CHLORIDE LEVEL 102 MEQ/L (98-107); CREATININE FOR GFR 0.88 MG/DL (0.55-1.30); GLOMERULAR FILTRATION RATE > 60.0 (>32); GLUCOSE, FASTING 171 MG/DL (70-100); POTASSIUM SERUM 4.3 MEQ/L (3.5-5.1); SODIUM LEVEL 139 MEQ/L (136-145); TOTAL PROTEIN 6.2 GM/DL (6.4-8.2)
--- NOTE | 2019-07-27 15:47 | REP ---
MRI left shoulder without and with IV contrast: History: Progressive pain left shoulder. Bone metastatic disease from breast carcinoma. Comparison PET/CT study September 08, 2018. No comparison radiographs. Technique: Axial, oblique coronal and oblique sagittal imaging planes were utilized. T1 and T2-weighted scans were included with and without fat saturation. 20 mL of intravenous ProHance is administered. MRI findings: There is a well circumscribed low T1 high T2 signal intensity lesion in the posterior cortex of the distal clavicle at the AC joint which has a narrow zone of transition. There is some heterogeneous contrast enhancement within this but this is most compatible with an arthritis associated cyst. There is osteoarthritis at the AC joint. There is a small subacromial subdeltoid bursal effusion. There is advanced tendinosis tendonitis change in the supraspinatus tendon with thickening and heterogeneous signal intensity. A full-thickness supraspinatus cuff tear is visible on T2-weighted scans without retraction. There is a lesion in the surgical neck of the left proximal humerus central medullary canal with ill-defined margins measuring approximately 2.5 cm in greatest diameter. This is characterized by low T1 high T2 signal intensity. It does appear to show some contrast enhancement. This could be a skeletal metastatic site. A stress reaction or stress fracture could have a similar appearance. I do not see a fracture line however. No periosteal reaction is visible. No cortical disruption is seen. There is a small quantity of glenohumeral joint fluid. There is a tiny cyst in the anterior glenoid labrum and there is evidence of a degenerative tear in the posterior labrum. The infraspinatus and subscapularis tendons appear intact. Impression: 1. There is a fairly large cyst in the distal clavicle consistent with arthritis associated cyst. 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 2. Advanced supraspinatus tendinopathy is seen with full-thickness supraspinatus cuff tear. 3. There is a 2.5 cm intramedullary lesion in the surgical neck of the left humerus which may be a hematogenous metastasis. Consider repeat bone scan. Electronically Signed by Jovan Miner MD 07/27/2019 06:22 P
== END ==
LOC: M RAD 11:22
DX: C50.919 Malignant neoplasm of unspecified site of unspecified female breast (principal); C79.51 Secondary malignant neoplasm of bone
CPT/HCPCS: 36415; 73223; 80053; 85025; A9576

== ENCOUNTER → 2019-09-24 | Outpatient (REF) | payer MEDICARE ==
[2019-09-24 12:00] LABS: BASO # 0.1 10^3/uL (0.0-0.2); BASO % 0.8 % (0.0-1.0); EOS # 0.3 10^3/uL (0.0-0.5); EOS % 2.6 % (0.0-3.0); HEMATOCRIT 47.1 % (36.0-47.0); HEMOGLOBIN 15.4 g/dl (12.0-15.5); LYMPH # 2.8 10^3/uL (1.5-5.0); LYMPH % 26.2 % (24.0-44.0); MEAN CORPUSCULAR HGB CONC 32.7 g/dl (32.0-36.5); MEAN CORPUSCULAR VOLUME 91.6 fl (80.0-96.0); MONO % 8.8 % (0.0-5.0); NEUTROPHILS # 6.6 10^3/uL (1.5-8.5); NEUTROPHILS % 61.2 % (36.0-66.0); PLATELET COUNT, AUTOMATED 324 10^3/uL (150-450); RED BLOOD COUNT 5.14 10^6/uL (4.00-5.40); WHITE BLOOD COUNT 10.8 10^3/uL (4.0-10.0)
[2019-09-24 12:06] LABS: ALBUMIN 3.8 GM/DL (3.2-5.2); ALT/SGPT 26 U/L (12-78); BILIRUBIN,TOTAL 0.4 MG/DL (0.2-1.0); BLOOD UREA NITROGEN 21 MG/DL (7-18); CALCIUM LEVEL 9.1 MG/DL (8.8-10.2); CARBON DIOXIDE LEVEL 30 MEQ/L (21-32); CHLORIDE LEVEL 103 MEQ/L (98-107); CHOLESTEROL LEVEL 237 MG/DL (<200); CHOLESTEROL RISK RATIO 4.647 (<5); CREATININE FOR GFR 0.95 MG/DL (0.55-1.30); GLOMERULAR FILTRATION RATE > 60.0 (>32); GLUCOSE, FASTING 147 MG/DL (70-100); HDL CHOLESTEROL 51 MG/DL (>40); LDL CHOLESTEROL 163 MG/DL (<100); NON-HDL-C 186 MG/DL; SODIUM LEVEL 141 MEQ/L (136-145); TOTAL PROTEIN 6.8 GM/DL (6.4-8.2); TRIGLYCERIDES LEVEL 116 MG/DL (<150)
[2019-09-24 12:34] LABS: MAU/CREAT RATIO 6.8 MCG/MG (0.0-30.0)
== END ==
LOC: M LABDRAW1 09:26
PROVIDERS: ATTEND Family Medicine
DX: E11.42 Type 2 diabetes mellitus with diabetic polyneuropathy (principal)

== ENCOUNTER → 2019-12-10 | Outpatient (CLI) | payer MEDICARE ==
[2019-12-10 16:58] LABS: CREATININE FOR GFR 0.99 MG/DL (0.55-1.30); GLOMERULAR FILTRATION RATE 57.3 (>32)
== END ==
LOC: M PLALAB 14:40
PROVIDERS: ATTEND Orthopaedic Surgery
DX: M79.604 Pain in right leg (principal)

== ENCOUNTER → 2020-03-28 | Outpatient (REF) | payer MEDICARE ==
[~2020-03-28] MED LIST changes: +ASPI81CH33 PO; +CELE1CAP4; +EQ A PO; +GING1CAP PO; +HYDR12CA; +JANU100T; +LINZ290C; +MECL12.589; +OMEP-221; +OPTI0.5D5 OP; -PROHANCE 279.3MG/ML 15ML VIAL (A9576) As Ordered ONE; -PROHANCE 279.3MG/ML 5ML VIAL (A9576) As Ordered ONE; +TELM1TAB35; +TRAM50TA2; +VENL75CA47
[2020-03-28 16:54] LABS: BASO # 0.1 10^3/uL (0.0-0.2); BASO % 0.9 % (0.0-1.0); EOS # 0.3 10^3/uL (0.0-0.5); HEMATOCRIT 47.8 % (36.0-47.0); HEMOGLOBIN 15.5 g/dl (12.0-15.5); LYMPH # 2.9 10^3/uL (1.5-5.0); LYMPH % 28.9 % (24.0-44.0); MEAN CORPUSCULAR HEMOGLOBIN 30.3 pg (27.0-33.0); MEAN CORPUSCULAR HGB CONC 32.4 g/dl (32.0-36.5); MEAN CORPUSCULAR VOLUME 93.4 fl (80.0-96.0); MONO # 0.9 10^3/uL (0.0-0.8); MONO % 8.7 % (0.0-5.0); NEUTROPHILS # 5.8 10^3/uL (1.5-8.5); NEUTROPHILS % 58.1 % (36.0-66.0); PLATELET COUNT, AUTOMATED 342 10^3/uL (150-450); RED BLOOD COUNT 5.12 10^6/uL (4.00-5.40)
[2020-03-28 17:55] LABS: ALT/SGPT 20 U/L (12-78); BILIRUBIN,TOTAL 0.4 MG/DL (0.2-1.0); BLOOD UREA NITROGEN 20 MG/DL (7-18); CALCIUM LEVEL 9.1 MG/DL (8.8-10.2); CARBON DIOXIDE LEVEL 31 MEQ/L (21-32); CHLORIDE LEVEL 104 MEQ/L (98-107); CHOLESTEROL LEVEL 211 MG/DL (<200); CHOLESTEROL RISK RATIO 4.057 (<5); CREATININE FOR GFR 0.87 MG/DL (0.55-1.30); GLOMERULAR FILTRATION RATE > 60.0 (>32); GLUCOSE, FASTING 184 MG/DL (70-100); HDL CHOLESTEROL 52 MG/DL (>40); LDL CHOLESTEROL 129 MG/DL (<100); NON-HDL-C 159 MG/DL; POTASSIUM SERUM 4.2 MEQ/L (3.5-5.1); SODIUM LEVEL 138 MEQ/L (136-145); TOTAL PROTEIN 6.6 GM/DL (6.4-8.2); TRIGLYCERIDES LEVEL 151 MG/DL (<150)
[2020-03-28 18:55] LABS: HEMOGLOBIN A1c 8.3 %
== END ==
LOC: M PLALAB 09:34
PROVIDERS: ATTEND Family Medicine
DX: E11.42 Type 2 diabetes mellitus with diabetic polyneuropathy (principal); E78.2 Mixed hyperlipidemia; E66.01 Morbid (severe) obesity due to excess calories

== ENCOUNTER → 2020-03-28 | Outpatient (REF) | payer MEDICARE ==
[2020-03-28 17:01] LABS: BLOOD UREA NITROGEN 21 MG/DL (7-18); CREATININE FOR GFR 0.92 MG/DL (0.55-1.30); GLOMERULAR FILTRATION RATE > 60.0 (>32)
== END ==
LOC: M PLALAB 09:34
PROVIDERS: ATTEND Pain Medicine Interventional Pain Medicine
DX: M54.16 Radiculopathy, lumbar region (principal)

== ENCOUNTER → 2020-04-29 | Outpatient (CLI) | payer MEDICARE | LOC: M LABSMTC 08:36 | PROVIDERS: ATTEND Anesthesiology | DX: Z20.828 Contact with and (suspected) exposure to other viral communicable diseases (principal) | CPT/HCPCS: C9803; U0003 ==

== ENCOUNTER 2020-05-04 09:18 | Day surgery (SDC) | payer MEDICARE ==
[~2020-05-04] VITALS: Ht 149.9 cm; Wt 104.3 kg
[~2020-05-04 09:18] MED LIST changes: +NS 1,000 ML IV ONE
[2020-05-04] MEDS ORDERED: propofoL 200 MG/20 ML VIAL As Ordered ONE (10:34)
--- NOTE | 2020-05-04 10:38 | ROOR ---
Patient Name: Sariah French Procedure Date: 05/04/2020 10:19 AM Date of : 1940 Age: 79 Room: [facility] Gender: Female Note Status: Finalized Procedure: Colonoscopy Indications: High risk colon cancer surveillance: Personal history of colon cancer Providers: Cristopher Jennings Jr, MD Referring MD: America VELASQUEZ DO Requesting Provider: Medicines: Propofol per Anesthesia Complications: No immediate complications. Procedure: Pre-Anesthesia Assessment: - Prior to the procedure, a History and Physical was performed, and patient medications and allergies were reviewed. The patient is competent. The risks and benefits of the procedure and the sedation options and risks were discussed with the patient. All questions were answered and informed consent was obtained. Patient identification and proposed procedure were verified by the physician and the nurse in the pre-procedure area and in the procedure room. Mental Status Examination: alert and oriented. Airway Examination: normal oropharyngeal airway and neck mobility. Respiratory Examination: clear to auscultation. CV Examination: normal. ASA Grade Assessment: II - A patient with mild systemic disease. After reviewing the risks and benefits, the patient was deemed in satisfactory condition to undergo the procedure. The anesthesia plan was to use moderate sedation / analgesia (conscious sedation). Immediately prior to administration of medications, the patient was re-assessed for adequacy to receive sedatives. The heart rate, respiratory rate, oxygen saturations, blood pressure, adequacy of pulmonary ventilation, and response to care were monitored throughout the procedure. The physical status of the patient was re-assessed after the procedure. The Colonoscope was introduced through the anus and advanced to the cecum, identified by appendiceal orifice and ileocecal valve. The colonoscopy was performed without difficulty. The patient tolerated the procedure well. The quality of the bowel preparation was adequate. Findings: The rectum, recto-sigmoid colon, descending colon, transverse colon, ascending colon, cecum, appendiceal orifice and ileocecal valve appeared normal. Multiple small and large-mouthed diverticula were found in the sigmoid colon. Non-bleeding external and internal hemorrhoids were found during endoscopy. The hemorrhoids were medium-sized and Grade II (internal hemorrhoids that prolapse but reduce spontaneously). Impression: - The rectum, recto-sigmoid colon, descending colon, transverse colon, ascending colon, cecum, appendiceal orifice and ileocecal valve are normal. - Diverticulosis in the sigmoid colon. - Non-bleeding external and internal hemorrhoids. - No specimens collected. Recommendation: - Discharge patient to home (ambulatory). - Repeat colonoscopy in 5 years for screening purposes. Cristopher Jennings MD Cristopher Jennings Jr, MD 05/04/2020 10:38:33 AM Electronically signed by Cristopher Jennings Jr, MD Number of Addenda: 0 Note Initiated On: 05/04/2020 10:19 AM Estimated Blood Loss: Estimated blood loss: none.
[2020-05-04 11:00] VITALS: BP 127/81
== END 2020-05-04 11:20 | disposition home or self-care (01) ==
LOC: M OPP 09:18
PROVIDERS: ATTEND Surgery
DX: Z12.11 Encounter for screening for malignant neoplasm of colon (principal); Z86.010 Personal history of colon polyps; K59.00 Constipation, unspecified; K57.30 Diverticulosis of large intestine without perforation or abscess without bleeding; K64.1 Second degree hemorrhoids; I10 Essential (primary) hypertension; E78.5 Hyperlipidemia, unspecified; E11.9 Type 2 diabetes mellitus without complications; R12 Heartburn; F41.9 Anxiety disorder, unspecified; F32.9 Major depressive disorder, single episode, unspecified; Z87.891 Personal history of nicotine dependence; Z88.0 Allergy status to penicillin; Z88.1 Allergy status to other antibiotic agents; Z88.5 Allergy status to narcotic agent; Z88.6 Allergy status to analgesic agent; Z88.8 Allergy status to other drugs, medicaments and biological substances; Z79.82 Long term (current) use of aspirin; Z79.84 Long term (current) use of oral hypoglycemic drugs; Z79.891 Long term (current) use of opiate analgesic; Z79.899 Other long term (current) drug therapy; Z92.21 Personal history of antineoplastic chemotherapy; Z92.3 Personal history of irradiation; Z85.3 Personal history of malignant neoplasm of breast

== ENCOUNTER → 2020-10-09 | Outpatient (CLI) | payer MEDICARE ==
[~2020-10-09] MED LIST changes: +MECL-136; -MECL12.589; -NS 1,000 ML IV ONE
[2020-10-09 14:08] LABS: BASO # 0.1 10^3/uL (0.0-0.2); BASO % 0.8 % (0.0-1.0); EOS # 0.4 10^3/uL (0.0-0.5); EOS % 3.7 % (0.0-3.0); HEMATOCRIT 46.5 % (36.0-47.0); HEMOGLOBIN 15.1 g/dl (12.0-15.5); LYMPH # 2.3 10^3/uL (1.5-5.0); LYMPH % 22.8 % (24.0-44.0); MEAN CORPUSCULAR HGB CONC 32.5 g/dl (32.0-36.5); MEAN CORPUSCULAR VOLUME 92.3 fl (80.0-96.0); MONO # 0.9 10^3/uL (0.0-0.8); MONO % 9.3 % (2.0-8.0); NEUTROPHILS # 6.3 10^3/uL (1.5-8.5); PLATELET COUNT, AUTOMATED 315 10^3/uL (150-450); RED BLOOD COUNT 5.04 10^6/uL (4.00-5.40)
[2020-10-09 15:24] LABS: BLOOD UREA NITROGEN 19 MG/DL (7-18); CREATININE FOR GFR 0.82 MG/DL (0.55-1.30); GLOMERULAR FILTRATION RATE > 60.0 (>32)
[2020-10-09 15:33] LABS: ALBUMIN 3.4 GM/DL (3.2-5.2); ALT/SGPT 17 U/L (12-78); BILIRUBIN,TOTAL 0.4 MG/DL (0.2-1.0); BLOOD UREA NITROGEN 19 MG/DL (7-18); CALCIUM LEVEL 8.9 MG/DL (8.8-10.2); CARBON DIOXIDE LEVEL 34 MEQ/L (21-32); CHLORIDE LEVEL 101 MEQ/L (98-107); CHOLESTEROL LEVEL 243 MG/DL (<200); CREATININE FOR GFR 0.82 MG/DL (0.55-1.30); FREE T4 0.97 NG/DL (0.76-1.46); GLOMERULAR FILTRATION RATE > 60.0 (>32); GLUCOSE, FASTING 209 MG/DL (70-100); HDL CHOLESTEROL 47 MG/DL (>40); LDL CHOLESTEROL 167 MG/DL (<100); NON-HDL-C 196 MG/DL; POTASSIUM SERUM 4.5 MEQ/L (3.5-5.1); SODIUM LEVEL 140 MEQ/L (136-145); TOTAL PROTEIN 6.2 GM/DL (6.4-8.2); TRIGLYCERIDES LEVEL 144 MG/DL (<150)
[2020-10-09 15:59] LABS: HEMOGLOBIN A1c 8.7 %
[2020-10-09 16:24] LABS: MALB URINE SIEMENS 16.2 MG/L; MAU/CREAT RATIO 5.9 MCG/MG (0.0-30.0)
== END ==
LOC: M PLALAB 09:09
PROVIDERS: ATTEND Physician Assistant
DX: M47.817 Spondylosis without myelopathy or radiculopathy, lumbosacral region (principal); E11.42 Type 2 diabetes mellitus with diabetic polyneuropathy; E78.2 Mixed hyperlipidemia; I10 Essential (primary) hypertension

== ENCOUNTER → 2020-10-11 | Outpatient (CLI) | payer MEDICARE ==
--- NOTE | 2020-10-11 12:35 | REPVR ---
PROCEDURE INFORMATION: Exam: MR Lumbar Spine Without and With Contrast. Exam date and time: 10/11/2020 12:06 PM Age: 79 years old Clinical indication: Low back pain; Additional info: Lumbar radiculopathy ? hnp stenosis TECHNIQUE: Imaging protocol: Multiplanar magnetic resonance images of the lumbar spine without and with contrast. Contrast material: PROHANCE; Contrast volume: 20 ml; Contrast route: INTRAVENOUS (IV); COMPARISON: CR SPINE LS W/BENDING 12/30/2018 10:27 AM FINDINGS: Vertebrae: There is accentuation of the normal lumbar lordosis. There is no acute fracture or listhesis. There are endplate signal changes at L5/S1. Spinal cord: Normal signal. No cord compression. L1-L2: There is a shallow disc osteophyte complex. There is mild facet hypertrophy. There is mild bilateral neural foraminal narrowing. L2-L3: There is shallow disc bulging. There is mild facet hypertrophy. The spinal canal and neural foramina are patent. L3-L4: There is shallow disc bulging. There is mild facet hypertrophy. The spinal canal and neural foramina are patent. L4-L5: There is diffuse disc bulging. There is moderate facet hypertrophy. There is mild canal stenosis. The neural foramina are patent. L5-S1: There is diffuse disc bulging. There is severe facet hypertrophy. There is moderate to severe right and [id number] left neural foraminal narrowing. Soft tissues: Unremarkable. IMPRESSION: Degenerative disc disease and spondylosis. At L5/S1, changes contribute to moderate to severe right neural foraminal narrowing. Electronically signed by: Lauren Mcintyre On 10/11/2020 12:35:09 PM
== END ==
LOC: M PLARAD 10:25
PROVIDERS: ATTEND Physician Assistant
DX: M51.36 Other intervertebral disc degeneration, lumbar region (principal); M47.816 Spondylosis without myelopathy or radiculopathy, lumbar region

== ENCOUNTER → 2020-11-06 | Outpatient (CLI) | payer MEDICARE ==
[2020-11-06 10:25] LABS: PLATELET COUNT, AUTOMATED 333 10^3/uL (150-450)
[2020-11-06 10:35] LABS: INR 0.98; PROTHROMBIN TIME 13.2 SECONDS (12.5-14.3)
[2020-11-06 10:36] LABS: PARTIAL THROMBOPLASTIN TIME 27.8 SECONDS (24.2-38.5)
== END ==
LOC: M PLALAB 08:20
PROVIDERS: ATTEND Physician Assistant
DX: M51.37 Other intervertebral disc degeneration, lumbosacral region (principal)

== ENCOUNTER → 2021-01-04 | Outpatient (CLI) | payer MEDICARE ==
[2021-01-04 13:57] LABS: CREATININE, URINE 71.3 MG/DL; MALB URINE SIEMENS 6.1 MG/L; MAU/CREAT RATIO 8.5 MCG/MG (0.0-30.0)
[2021-01-04 14:07] LABS: ALBUMIN 3.4 GM/DL (3.2-5.2); ALT/SGPT 19 U/L (12-78); BILIRUBIN,TOTAL 0.4 MG/DL (0.2-1.0); BLOOD UREA NITROGEN 22 MG/DL (7-18); CALCIUM LEVEL 9.1 MG/DL (8.8-10.2); CARBON DIOXIDE LEVEL 30 MEQ/L (21-32); CHLORIDE LEVEL 100 MEQ/L (98-107); CHOLESTEROL LEVEL 221 MG/DL (<200); CHOLESTEROL RISK RATIO 4.804 (<5); CREATININE FOR GFR 0.79 MG/DL (0.55-1.30); FREE T4 1.15 NG/DL (0.76-1.46); GLOMERULAR FILTRATION RATE > 60.0 (>32); GLUCOSE, FASTING 143 MG/DL (70-100); HDL CHOLESTEROL 46 MG/DL (>40); LDL CHOLESTEROL 146 MG/DL (<100); NON-HDL-C 175 MG/DL; POTASSIUM SERUM 4.1 MEQ/L (3.5-5.1); SODIUM LEVEL 136 MEQ/L (136-145); THYROID STIMULATING HORMONE 0.903 uIU/ML (0.358-3.740); TOTAL PROTEIN 6.4 GM/DL (6.4-8.2); TRIGLYCERIDES LEVEL 144 MG/DL (<150)
[2021-01-04 14:29] LABS: HEMOGLOBIN A1c 8.7 %
== END ==
LOC: M PLALAB 11:46
PROVIDERS: ATTEND Family Medicine
DX: E11.42 Type 2 diabetes mellitus with diabetic polyneuropathy (principal); E78.2 Mixed hyperlipidemia; R39.15 Urgency of urination

== ENCOUNTER → 2021-01-24 | Outpatient (CLI) | payer MEDICARE ==
[~2021-01-24] MED LIST changes: +BIOF4GEL2 TOP; -CELE1CAP4; +CELE1CAP4 PO; +COLA1TAB PO; +FARX1TAB3 PO; -HYDR12CA; +HYDR12CA PO; -JANU100T; +JANU100T PO; +LACT20EL PO; +LIDO1PAD TOP; -LINZ290C; +LINZ290C PO; -MECL-136; +MECL-136 PO; +MORP15TA2 PO; +NYST10CR; -OMEP-221; +OMEP40CA5 PO; +ONDA-83 PO; -OPTI0.5D5 OP; +OPTI0.5D5 OU; -TELM1TAB35; +TELM1TAB35 PO; -TRAM50TA2; +TRAM50TA2 PO; -VENL75CA47; +VENL75CA47 PO
== END ==
LOC: M WUC 13:26
PROVIDERS: ATTEND Physician Assistant
DX: M25.711 Osteophyte, right shoulder (principal)

== ENCOUNTER → 2021-04-04 | Outpatient (CLI) | payer MEDICARE ==
[~2021-04-04] MED LIST changes: -BIOF4GEL2 TOP; +CELE1CAP4; -CELE1CAP4 PO; -COLA1TAB PO; -FARX1TAB3 PO; +HYDR12CA; -HYDR12CA PO; +JANU100T; -JANU100T PO; -LACT20EL PO; -LIDO1PAD TOP; +LINZ290C; -LINZ290C PO; +MECL-136; -MECL-136 PO; -MORP15TA2 PO; -NYST10CR; +OMEP-221; -OMEP40CA5 PO; -ONDA-83 PO; +OPTI0.5D5 OP; -OPTI0.5D5 OU; +TELM1TAB35; -TELM1TAB35 PO; +TRAM50TA2; -TRAM50TA2 PO; +VENL75CA47; -VENL75CA47 PO
[2021-04-04 11:57] LABS: HEMOGLOBIN A1c 7.9 %
[2021-04-04 12:06] LABS: ALBUMIN 3.3 GM/DL (3.2-5.2); ALT/SGPT 20 U/L (12-78); BILIRUBIN,TOTAL 0.4 MG/DL (0.2-1.0); BLOOD UREA NITROGEN 20 MG/DL (7-18); CALCIUM LEVEL 9.1 MG/DL (8.8-10.2); CARBON DIOXIDE LEVEL 29 MEQ/L (21-32); CHLORIDE LEVEL 105 MEQ/L (98-107); CREATININE FOR GFR 0.78 MG/DL (0.55-1.30); GLOMERULAR FILTRATION RATE > 60.0 (>32); GLUCOSE, FASTING 157 MG/DL (70-100); SODIUM LEVEL 140 MEQ/L (136-145); TOTAL PROTEIN 6.4 GM/DL (6.4-8.2)
== END ==
LOC: M PLALAB 07:59
PROVIDERS: ATTEND Family Medicine
DX: E11.42 Type 2 diabetes mellitus with diabetic polyneuropathy (principal)

== ENCOUNTER → 2021-05-02 | Outpatient (CLI) | payer MEDICARE ==
--- NOTE | 2021-05-02 15:15 | REP ---
INDICATION: PRIMARY OA, R/O METS. COMPARISON: 04/11/2017 the latest prior TECHNIQUE/RADIOTRACER AND DOSE: After the intravenous administration of 22.0 mCi of technetium 99 M MDP a total body bone scan was obtained. FINDINGS: The uptake pattern seen previously in the spine and ribs is unchanged. There is a new linear focus of increased activity seen in the right posterior 8th rib and a new focal area of increased uptake activity seen in the right posterior 5th rib. There is evidence of slight increased activity seen in T6. There is significant increased activity seen in the proximal right humerus. The increased activity seen previously in the right clavicle is unchanged. The degenerative type uptake pattern seen on the prior exam is again seen today and appear stable. IMPRESSION: 1. There are new areas of increased activity as described above concerning for metastatic disease. Consider CT evaluation of these regions particularly the right shoulder. 2. Degenerative type uptake pattern seen on the prior exam persists. <Electronically signed by Margarito Ruiz > 05/02/21 [id number]
== END ==
LOC: M RAD 10:30
PROVIDERS: ATTEND Physician Assistant
DX: R93.7 Abnormal findings on diagnostic imaging of other parts of musculoskeletal system (principal); M19.011 Primary osteoarthritis, right shoulder
CPT/HCPCS: 78306; A9503

== ENCOUNTER → 2021-06-05 | Outpatient (CLI) | payer MEDICARE ==
[~2021-06-05] MED LIST changes: +BIOF4GEL2 TOP; -CELE1CAP4; +CELE1CAP4 PO; +COLA1TAB PO; +FARX1TAB3 PO; -HYDR12CA; +HYDR12CA PO; -JANU100T; +JANU100T PO; +LIDO1PAD TOP; -LINZ290C; +LINZ290C PO; -MECL-136; +MECL-136 PO; -OMEP-221; +OMEP-221 PO; -OPTI0.5D5 OP; +OPTI0.5D5 OU; -TELM1TAB35; +TELM1TAB35 PO; -TRAM50TA2; +TRAM50TA2 PO; -VENL75CA47; +VENL75CA47 PO
--- NOTE | 2021-06-05 11:18 | RADONC.CN ---
Radiation Oncology Hx/Consult Radiation Oncology Consult Date of Service: Jun 05, 2021 Pt Identifier Sariah French is a 80 year old female with a long history of metastatic breast cancer dating back to 1996. She has received multiple lines of systemic therapy including hormonal, and conventional chemotherapy agents. A PET-CT and biopsy of is pending to re-stage. She has been referred for consideration of palliative RT to a painful and debilitating right humerus metastasis. Diagnosis/Treatment History Oncologic History As above Recent data: 05/02/21 Bone scan FINDINGS: The uptake pattern seen previously in the spine and ribs is unchanged. There is a new linear focus of increased activity seen in the right posterior 8th rib and a new focal area of increased uptake activity seen in the right posterior 5th rib. There is evidence of slight increased activity seen in T6. There is significant increased activity seen in the proximal right humerus. The increased activity seen previously in the right clavicle is unchanged. The degenerative type uptake pattern seen on the prior exam is again seen today and appear stable. IMPRESSION: 1. There are new areas of increased activity as described above concerning for metastatic disease. Consider CT evaluation of these regions particularly the right shoulder. 2. Degenerative type uptake pattern seen on the prior exam persists. 10/11/20 MRI right shoulder Impression: 1. There is a fairly large cyst in the distal clavicle consistent with arthritis associated cyst. 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 2. Advanced supraspinatus tendinopathy is seen with full-thickness supraspinatus cuff tear. 3. There is a 2.5 cm intramedullary lesion in the surgical neck of the left humerus which may be a hematogenous metastasis. Consider repeat bone scan. Interval History She is here with her supportive son-in-law. She reports that she has had pain in the right shoulder steadily worsening for the past year. She has had multiple orthopedic injections without improvement. She now cannot use the right arm due to pain. She has been overusing her left arm, which has resulted in pain on that side as well. She also has pain in the right leg, radiating down the back of the leg. She is ambulatory with a walker. She has some very mild pain in the lateral chest R>L. Past Medical History: HTN HPL DM2 Past Surgical History: Colectomy 1999 Hysterectomy Left breast lumpectomy 1996 Right breast lumpectomy 2005 Family History: Sister brain tumor Brother colon cancer Social History: Current smoker 2-3 cigarettes per day for 60+ years Never drinker Allergies / Meds Allergies: Coded Allergies: ibuprofen (Verified Allergy, Severe, throat swells, 04/28/20) naproxen (Verified Allergy, Severe, ANGIOEDEMA, 04/28/20) ciprofloxacin (Verified Allergy, Intermediate, leg swelling, 04/28/20) dulaglutide (Verified Allergy, Intermediate, rectal swelling?, 04/28/20) meperidine (Verified Allergy, Intermediate, leg swelling, 04/28/20) Penicillins (Verified Allergy, Unknown, 04/28/20) anastrozole (Verified Allergy, Unknown, 04/28/20) tolterodine (Verified Allergy, Unknown, 04/28/20) codeine (Verified Adverse Reaction, Mild, headaches, 04/28/20) fentanyl (Verified Adverse Reaction, Mild, sick, 04/28/20) Home Meds Reported Medications Lidocaine (Lidocaine) 5% Adh..patch, 1 PATCH TOP DAILY for 30 Days, #30 PATCH 05/25/21 Menthol (Biofreeze) 118 Ml Gel..ml., 4 % TOP PRN, ML 05/25/21 Sennosides/Docusate Sodium (Colace 2-in-1 Tablet) 1 Each Tablet, 2 TAB PO Q2D, TAB 05/25/21 Dapagliflozin Propanediol (Farxiga) 10 Mg Tablet, 1 TAB PO DAILY 05/25/21 Carboxymethylcellulos/Glycerin (Refresh Optive Eye Drops) 15 Ml Drops, 1 DROP OU QHS, CONTAINER 04/28/20 Acetaminophen (Arthritis Pain) 650 Mg Tablet.er, 650 MG PO DAILYPRN, TAB 04/28/20 Meclizine HCl (Meclizine HCl) 12.5 Mg Tablet, 1-2 TAB PO Q6HP 04/28/20 Hydrochlorothiazide (Hydrochlorothiazide) 12.5 Mg Capsule, 1 CAP PO DAILY 04/28/20 Sitagliptin Phosphate (Januvia) 100 Mg Tablet, 1 TAB PO DAILY 04/28/20 Telmisartan (Telmisartan) 40 Mg Tablet, 1 TAB PO DAILY 04/28/20 Lillian Root (Lillian Root) 550 Mg Capsule, 550 MG PO DAILY, CAP 04/28/20 Linaclotide (Linzess) 290 Mcg Capsule, 1 CAP PO DAILY 04/28/20 Omeprazole (Omeprazole) 40 Mg Capsule.dr, 1 CAP PO DAILY 04/28/20 Venlafaxine HCl (Venlafaxine HCl ER) 75 Mg Cap.er.24h, 1 CAP PO DAILY 04/28/20 Celecoxib (Celebrex) 200 Mg Capsule, 1 CAP PO DAILY 04/28/20 Aspirin (Aspirin) 81 Mg Tab.chew, 81 MG PO DAILY 04/28/20 Tramadol HCl (Tramadol HCl) 50 Mg Tablet, 2 TAB PO Q8HP 04/28/20 Review of Systems Constitutional: Reports: Fatigue; Denies: Weight Loss Eyes: Denies: Pain HEENT: Denies: Head Aches Pulmonary: Denies: Dyspnea Cardiovascular: Denies: Chest Pain Gastrointestinal: Denies: Abdominal Pain Musculoskeletal: Reports: Arm pain, Back pain, Leg pain, Midthoracic pain; Denies: Foot pain Neurological: Denies: Weakness, Numbness Psych: Reports: Mood Normal Vital Signs Ht 60" Wt 218 lbs BMI 42 P 109 RR 18 BP 141/87 O2 95% Pain 8 right arm Fatigue 1 General Exam: Alert, Cooperative, No Acute Distress Eye Exam: PERRLA, EOMI ENT EXAM: Atraumatic Neck Exam: Supple Chest Exam: Clear to auscultation, Normal air movement Heart Exam: Rate Normal Abdomen Exam: Soft Extremity Exam: Negative: Edema Skin Exam: Nl turgor and temperature Neuro Exam: Normal Speech, Cranial Nerves 3-12 NL Psych Exam: Mental status NL Diagnostic and Laboratory Diagnostic Review Radiologic images, relevant labs and pathology reports were personally reviewed and discussed with Ms. French. Assessment and Plan Impression Ms. French is a 80 year old female with a long history of metastatic breast cancer dating back to 1996. She has received multiple lines of systemic therapy including hormonal, and conventional chemotherapy agents. A PET-CT and biopsy of is pending to re-stage. She has been referred for consideration of palliative RT to a painful and debilitating right humerus metastasis. Stage Breast cancer stage IV (restaging pending) Performance Status ECOG 2 Plan We had an extensive discussion with Ms. French regarding the diagnosis at hand and available therapeutic options. She has an extensive right proximal humerus lesion causing pain and impairing use of the right arm. This has been ongoing for a year at this point without meaningful intervention. I think she would benefit greatly from palliative RT to this site. I recommend 20 Gy in 5 fractions with 2D planning and MV imaging as needed for localization. I would like her to receive treatment urgently. On discussion she did not identify any significant pain at other sites corresponding to bone scan abnormalities. If additional lesions of concern are identified on the pending PET-CT, then we can add RT to additional sites as needed. We discussed the logistics of receiving radiation therapy in detail including the need for a 1-time planning session. This will occur on 06/06/21. Treatment will start shortly after. We discussed the risks of RT including fatigue and skin reaction. After discussing the risks, benefits and alternatives to radiation therapy, Ms. French was amenable to pursuing radiotherapy. All questions were answered to the patient's satisfaction. We instructed the patient that if there were any questions,concerns or changes in clinical status in the interim to contact us. Recommendations Palliative RT to right humerus 20 Gy in 5 fractions Simulation tomorrow Treatment to begin the following day Billing Statement Total time of [33] minutes was spent preparing for the visit [2], obtaining HPI [7], examining the patient [2], reviewing diagnostic tests [5], discussing management options [7], coordinating care [2], and writing this note [8]. GREGORIA FLORES MD Jun 05, 2021 11:18
== END ==
LOC: M ONCR 09:52
PROVIDERS: ATTEND General Practice
DX: C50.919 Malignant neoplasm of unspecified site of unspecified female breast (principal); C40 Malignant neoplasm of bone and articular cartilage of limbs; M25.511 Pain in right shoulder; Z88.0 Allergy status to penicillin; Z88.5 Allergy status to narcotic agent; Z79.899 Other long term (current) drug therapy

== ENCOUNTER → 2021-06-11 | Outpatient (CLI) | payer MEDICARE ==
--- NOTE | 2021-06-12 10:07 | REP ---
INDICATION: RESTAGING RIGHT BREAST CANCER C50.811. COMPARISON: Bone scintiscan of 05/02/2021, nondiagnostic CT localization of the chest and abdomen. PET-CT 09/08/2018 TECHNIQUE: After the intravenous administration of 9.20 mCi of FDG 18 triplane whole-body PET-CT was performed from the skull base to the mid. FINDINGS: There is abnormal hypermetabolic activity seen in both shoulders both soft tissue and bony components right greater than left. The maximal SUV value in the bony right shoulder is 6.07 seen in the right humeral head. There is also hypermetabolic activity in the right scapula particularly the glenoid having a maximal SUV value of 5.09. The left shoulder hypermetabolic activity is primarily in the soft tissues mostly within the rotator cuff. The maximal SUV value of abnormal bony hypermetabolism is in the scapular body with an SUV value of 5.02 maximally. The increased activity seen on the right has a CT appearance of significant arthropathy well the bony activity on the left is more suspicious for metastatic lesion. There are bilateral rib fractures, however, the only hypermetabolic fracture is seen on the left involving the anterolateral aspect of the 7th rib. This fracture appears somewhat acute. There are scattered areas of rib hypermetabolism and non fractured ribs having an SUV value maximum of 2.73. These areas are seen bilaterally. There is a focus of hypermetabolic activity seen in the anterior limb of the left adrenal having a maximal SUV value of 2.94. There are additional diffuse scattered areas of hypermetabolism seen throughout the axial and appendicular skeleton too numerous to count or individually assess. The maximal axial skeletal uptake is in the thoracic spine with an SUV value of 4.03. No other areas of abnormal hypermetabolic activity are seen in the neck, chest, abdomen, or pelvis. IMPRESSION: 1. Somewhat obfuscating picture of bilateral shoulder hypermetabolism, as described above, with a mixed erosive arthritic and or metastatic etiology. This needs to be correlated clinically with follow-up. 2. Extensive widespread diffuse skeletal hypermetabolism as described above. Areas of metastasis with or without degenerative change and or chemo reactive change needs to be evaluated clinically. Consider spine MRI before and after gadolinium enhancement. 3. Hypermetabolic activity in the left adrenal gland as described above. This can also be evaluated with MRI if clinically relevant. 4. Other findings as described above. <Electronically signed by Margarito Ruiz > 06/12/21 [id number]
== END ==
LOC: M PLARAD 11:56
PROVIDERS: ATTEND Internal Medicine Medical Oncology
DX: C50.811 Malignant neoplasm of overlapping sites of right female breast (principal)
CPT/HCPCS: 78815; A9552

== ENCOUNTER → 2021-06-19 | Outpatient (RCR) | payer MEDICARE ==
[~2021-06-19] MED LIST changes: +LACT20EL PO; +MORP15TA2 PO; +NYST10CR; -OMEP-221 PO; +OMEP40CA5 PO; +ONDA-83 PO
== END ==
LOC: M ONCR 06-07 07:09
PROVIDERS: ATTEND General Practice
DX: C79.51 Secondary malignant neoplasm of bone (principal)

== ENCOUNTER 2021-07-02 11:24 | Outpatient (RCR) | payer MEDICARE ==
[~2021-07-02 11:24] MED LIST changes: -MORP15TA2 PO; -NYST10CR; +OMEP-221 PO; -OMEP40CA5 PO
== END 2021-07-20 ==
LOC: M ONCR 11:24
PROVIDERS: ATTEND General Practice
DX: C79.51 Secondary malignant neoplasm of bone (principal); M25.511 Pain in right shoulder; M79.604 Pain in right leg; R53.1 Weakness

== ENCOUNTER → 2021-07-17 | Outpatient (CLI) | payer MEDICARE ==
[~2021-07-17] MED LIST changes: +MORP15TA2 PO; +NYST10CR; -OMEP-221 PO; +OMEP40CA5 PO
[2021-07-17 11:48] LABS: BASO # 0.1 10^3/uL (0.0-0.2); BASO % 0.8 % (0.0-1.0); EOS # 0.3 10^3/uL (0.0-0.5); EOS % 2.3 % (0.0-3.0); HEMATOCRIT 49.7 % (36.0-47.0); HEMOGLOBIN 16.4 g/dl (12.0-15.5); LYMPH # 1.9 10^3/uL (1.5-5.0); LYMPH % 15.8 % (24.0-44.0); MONO % 8.1 % (2.0-8.0); NEUTROPHILS # 8.6 10^3/uL (1.5-8.5); NEUTROPHILS % 72.5 % (36.0-66.0); PLATELET COUNT, AUTOMATED 346 10^3/uL (150-450); RED BLOOD COUNT 5.46 10^6/uL (4.00-5.40); WHITE BLOOD COUNT 11.9 10^3/uL (4.0-10.0)
[2021-07-17 12:22] LABS: ALBUMIN 3.3 GM/DL (3.2-5.2); ALT/SGPT 16 U/L (12-78); BILIRUBIN,TOTAL 0.2 MG/DL (0.2-1.0); BLOOD UREA NITROGEN 15 MG/DL (7-18); CALCIUM LEVEL 9.3 MG/DL (8.8-10.2); CARBON DIOXIDE LEVEL 30 MEQ/L (21-32); CHLORIDE LEVEL 103 MEQ/L (98-107); CHOLESTEROL LEVEL 223 MG/DL (<200); CHOLESTEROL RISK RATIO 4.744 (<5); CREATININE FOR GFR 0.68 MG/DL (0.55-1.30); FREE T4 1.26 NG/DL (0.76-1.46); GLOMERULAR FILTRATION RATE > 60.0 (>32); GLUCOSE, FASTING 175 MG/DL (70-100); HDL CHOLESTEROL 47 MG/DL (>40); LDL CHOLESTEROL 145 MG/DL (<100); NON-HDL-C 176 MG/DL; POTASSIUM SERUM 3.5 MEQ/L (3.5-5.1); SODIUM LEVEL 140 MEQ/L (136-145); TOTAL PROTEIN 6.5 GM/DL (6.4-8.2); TRIGLYCERIDES LEVEL 153 MG/DL (<150)
== END ==
LOC: M LAB 11:03
PROVIDERS: ATTEND Physician Assistant
DX: I10 Essential (primary) hypertension (principal); F33.1 Major depressive disorder, recurrent, moderate; E11.42 Type 2 diabetes mellitus with diabetic polyneuropathy; Z13.0 Encounter for screening for diseases of the blood and blood-forming organs and certain disorders involving the immune mechanism

== ENCOUNTER → 2021-07-18 | Outpatient (CLI) | payer MEDICARE ==
[~2021-07-18] MED LIST changes: -MORP15TA2 PO; -NYST10CR; +OMEP-221 PO; -OMEP40CA5 PO; +PROHANCE 279.3MG/ML 15ML VIAL As Ordered ONE; +PROHANCE 279.3MG/ML 5ML VIAL As Ordered ONE
--- NOTE | 2021-07-19 22:11 | REPVR ---
PROCEDURE INFORMATION: Exam: MR Thoracic Spine Without and With Contrast Exam date and time: 07/18/2021 5:52 PM Age: 80 years old Clinical indication: Pain in thoracic spine; With radiculopathy; Right; Additional info: Bone mets TECHNIQUE: Imaging protocol: Multiplanar magnetic resonance images of the thoracic spine without and with contrast. Contrast material: PROHANCE; Contrast volume: 20 ml; Contrast route: INTRAVENOUS (IV); COMPARISON: PT PET/CT Skull/mid thigh 06/11/2021 1:17 PM FINDINGS: Vertebrae: Normal vertebral body alignment. Endplate and facet degenerative changes throughout the thoracic spine. Diffusely heterogeneous bone marrow signal. Reactive endplate edema at T5-6 and T12-L1. No fracture or destructive bone lesions. Multiple healed right rib fractures. Spinal cord: Normal signal. No cord compression. No syrinx, mass, or abnormal contrast enhancement. Discs/Spinal canal/Neural foramina: Advanced discogenic degenerative changes with degenerative disc space narrowing throughout the thoracic spine. Small posterior disc bulges are present from T5-6 to T12-L1. No disc herniation. No significant spinal stenosis. Soft tissues: Unremarkable. IMPRESSION: 1. Advanced degenerative spondylosis with degenerative disc space narrowing and small posterior disc bulges throughout the lower thoracic spine. No significant spinal stenosis or cord compression. 2. Normal alignment. Electronically signed by: Ceasar Arthur On 07/19/2021 22:10:56 PM
== END ==
LOC: M RAD 16:34
PROVIDERS: ATTEND Internal Medicine Medical Oncology
DX: C50.919 Malignant neoplasm of unspecified site of unspecified female breast (principal); C79.51 Secondary malignant neoplasm of bone; M51.34 Other intervertebral disc degeneration, thoracic region; M51.24 Other intervertebral disc displacement, thoracic region
CPT/HCPCS: 72157; A9576

== ENCOUNTER → 2021-08-24 | Outpatient (REF) | payer MEDICARE ==
[~2021-08-24] MED LIST changes: +MORP15TA2 PO; -OMEP-221 PO; +OMEP40CA5 PO; -PROHANCE 279.3MG/ML 15ML VIAL As Ordered ONE; -PROHANCE 279.3MG/ML 5ML VIAL As Ordered ONE
[2021-08-24 16:01] LABS: APPEARANCE, URINE HAZY (CLEAR); BACTERIA, URINE AUTO NEGATIVE (NEGATIVE); BILIRUBIN, URINE AUTO NEGATIVE (NEGATIVE); BLOOD, URINE BLOOD NEGATIVE (NEGATIVE); COLOR, URINE YELLOW (YELLOW); GLUCOSE, URINE (UA) AUTO 3+ mg/dL (NEGATIVE); KETONE, URINE AUTO TRACE mg/dL (NEGATIVE); LEUKOCYTE ESTERASE, URINE AUTO 3+ (NEGATIVE); NITRITE, URINE AUTO NEGATIVE (NEGATIVE); PROTEIN, URINE AUTO NEGATIVE (NEGATIVE); RBC, URINE AUTO 0 /HPF (0-3); SPECIFIC GRAVITY URINE AUTO 1.028 (1.002-1.035); SQUAMOUS EPITHELIAL CELL UR AU 6 /HPF (0-6); UROBILINOGEN, URINE AUTO 0.2 mg/dL (0.0-2.0); WBC, URINE AUTO 5 /HPF (0-3)
== END ==
LOC: M LAB REF 15:39
PROVIDERS: ATTEND Family Medicine
DX: R30.0 Dysuria (principal)

== ENCOUNTER → 2021-09-19 | Outpatient (CLI) | payer MEDICARE ==
[~2021-09-19] MED LIST changes: +NYST10CR
[2021-09-19 10:30] LABS: BASO # 0.1 10^3/uL (0.0-0.2); BASO % 0.9 % (0.0-1.0); EOS # 0.2 10^3/uL (0.0-0.5); EOS % 2.3 % (0.0-3.0); HEMATOCRIT 46.3 % (36.0-47.0); HEMOGLOBIN 15.1 g/dl (12.0-15.5); LYMPH # 1.5 10^3/uL (1.5-5.0); LYMPH % 15.7 % (24.0-44.0); MEAN CORPUSCULAR HEMOGLOBIN 28.9 pg (27.0-33.0); MEAN CORPUSCULAR HGB CONC 32.6 g/dl (32.0-36.5); MEAN CORPUSCULAR VOLUME 88.5 fl (80.0-96.0); MONO # 0.9 10^3/uL (0.0-0.8); MONO % 9.5 % (2.0-8.0); NEUTROPHILS # 6.8 10^3/uL (1.5-8.5); NEUTROPHILS % 71.2 % (36.0-66.0); PLATELET COUNT, AUTOMATED 366 10^3/uL (150-450); RED BLOOD COUNT 5.23 10^6/uL (4.00-5.40); WHITE BLOOD COUNT 9.6 10^3/uL (4.0-10.0)
[2021-09-19 12:09] LABS: ALBUMIN 2.9 GM/DL (3.2-5.2); ALT/SGPT 15 U/L (12-78); BILIRUBIN,TOTAL 0.7 MG/DL (0.2-1.0); BLOOD UREA NITROGEN 22 MG/DL (7-18); CALCIUM LEVEL 9.1 MG/DL (8.8-10.2); CARBON DIOXIDE LEVEL 29 MEQ/L (21-32); CHLORIDE LEVEL 99 MEQ/L (98-107); GLOMERULAR FILTRATION RATE > 60.0 (>32); GLUCOSE, FASTING 181 MG/DL (70-100); POTASSIUM SERUM 3.2 MEQ/L (3.5-5.1); SODIUM LEVEL 138 MEQ/L (136-145); TOTAL PROTEIN 6.6 GM/DL (6.4-8.2)
== END ==
LOC: M ONCR 09:13
PROVIDERS: ATTEND General Practice
DX: C79.51 Secondary malignant neoplasm of bone (principal); F17.210 Nicotine dependence, cigarettes, uncomplicated; K59.03 Drug induced constipation; M25.511 Pain in right shoulder; M25.512 Pain in left shoulder; M79.604 Pain in right leg; Z79.899 Other long term (current) drug therapy; Z85.3 Personal history of malignant neoplasm of breast; Z88.0 Allergy status to penicillin; Z88.1 Allergy status to other antibiotic agents; Z88.5 Allergy status to narcotic agent; Z88.8 Allergy status to other drugs, medicaments and biological substances; Z92.3 Personal history of irradiation

== ENCOUNTER → 2021-09-25 | Outpatient (CLI) | payer MEDICARE | LOC: M WHC 13:26 | PROVIDERS: ATTEND Specialist | DX: Z12.31 Encounter for screening mammogram for malignant neoplasm of breast (principal); M81.0 Age-related osteoporosis without current pathological fracture ==

== ENCOUNTER → 2022-02-12 | Outpatient (CLI) | payer MEDICARE ==
[~2022-02-12] VITALS: Ht 165.1 cm; Wt 81.8 kg
[~2022-02-12] MED LIST changes: +CYCL-707 PO; +NYST-13; -NYST10CR; +VENL100T PO; +VIBE75TA PO
[2022-02-12 10:13] VITALS: BP 169/89
== END ==
LOC: M PAL 10:00
PROVIDERS: ATTEND Nurse Practitioner Adult Health
DX: Z85.3 Personal history of malignant neoplasm of breast (principal); C79.51 Secondary malignant neoplasm of bone; G89.3 Neoplasm related pain (acute) (chronic); N32.81 Overactive bladder; E88.09 Other disorders of plasma-protein metabolism, not elsewhere classified; K59.00 Constipation, unspecified; Z66 Do not resuscitate; Z74.1 Need for assistance with personal care; Z88.0 Allergy status to penicillin; Z88.6 Allergy status to analgesic agent; Z88.5 Allergy status to narcotic agent; Z88.8 Allergy status to other drugs, medicaments and biological substances; Z79.899 Other long term (current) drug therapy; Z79.82 Long term (current) use of aspirin; Z79.84 Long term (current) use of oral hypoglycemic drugs; Z79.891 Long term (current) use of opiate analgesic; Z96.611 Presence of right artificial shoulder joint; I10 Essential (primary) hypertension; E78.5 Hyperlipidemia, unspecified; E11.9 Type 2 diabetes mellitus without complications; Z72.0 Tobacco use; Z51.5 Encounter for palliative care; Z90.710 Acquired absence of both cervix and uterus; R54 Age-related physical debility; Z92.3 Personal history of irradiation

== ENCOUNTER → 2022-03-12 | Outpatient (CLI) | payer MEDICARE ==
[~2022-03-12] VITALS: Ht 152.4 cm; Wt 79.6 kg
[2022-03-12 13:14] VITALS: BP 116/75
== END ==
LOC: M PAL 12:56
PROVIDERS: ATTEND Nurse Practitioner Adult Health
DX: C79.51 Secondary malignant neoplasm of bone (principal); R42 Dizziness and giddiness; K59.00 Constipation, unspecified; G89.3 Neoplasm related pain (acute) (chronic); R77.0 Abnormality of albumin; I10 Essential (primary) hypertension; E78.5 Hyperlipidemia, unspecified; E11.9 Type 2 diabetes mellitus without complications; F41.9 Anxiety disorder, unspecified; Z51.5 Encounter for palliative care; Z66 Do not resuscitate; Z78.0 Asymptomatic menopausal state; Z79.82 Long term (current) use of aspirin; Z79.891 Long term (current) use of opiate analgesic; Z79.899 Other long term (current) drug therapy; Z80.0 Family history of malignant neoplasm of digestive organs; Z80.8 Family history of malignant neoplasm of other organs or systems; Z85.3 Personal history of malignant neoplasm of breast; Z88.0 Allergy status to penicillin; Z88.1 Allergy status to other antibiotic agents; Z88.5 Allergy status to narcotic agent; Z88.8 Allergy status to other drugs, medicaments and biological substances; Z90.710 Acquired absence of both cervix and uterus; Z96.611 Presence of right artificial shoulder joint; Z88.6 Allergy status to analgesic agent; M87.811 Other osteonecrosis, right shoulder; M25.561 Pain in right knee; R51.9 Headache, unspecified; M79.604 Pain in right leg; M79.601 Pain in right arm; M79.602 Pain in left arm; R53.83 Other fatigue; N39.41 Urge incontinence; R54 Age-related physical debility; F17.210 Nicotine dependence, cigarettes, uncomplicated

== ENCOUNTER 2022-03-19 09:57 | Emergency (ER) | payer MEDICARE ==
[~2022-03-19] VITALS: Ht 152.4 cm; Wt 79.5 kg
[2022-03-19] MEDS ORDERED: VENL100T (10:20)
[2022-03-19 11:09] LABS: BASO # 0.1 10^3/uL (0.0-0.2); BASO % 0.9 % (0.0-1.0); EOS # 0.6 10^3/uL (0.0-0.5); HEMATOCRIT 49.4 % (36.0-47.0); HEMOGLOBIN 16.1 g/dl (12.0-15.5); LYMPH # 2.5 10^3/uL (1.5-5.0); LYMPH % 25.1 % (24.0-44.0); MEAN CORPUSCULAR HEMOGLOBIN 29.7 pg (27.0-33.0); MEAN CORPUSCULAR HGB CONC 32.6 g/dl (32.0-36.5); MEAN CORPUSCULAR VOLUME 91.1 fl (80.0-96.0); MONO # 0.8 10^3/uL (0.0-0.8); MONO % 8.1 % (2.0-8.0); NEUTROPHILS # 5.9 10^3/uL (1.5-8.5); NEUTROPHILS % 59.6 % (36.0-66.0); PLATELET COUNT, AUTOMATED 354 10^3/uL (150-450); RED BLOOD COUNT 5.42 10^6/uL (4.00-5.40); WHITE BLOOD COUNT 9.8 10^3/uL (4.0-10.0)
[2022-03-19 11:46] LABS: CK-MB VALUE MASS 1.3 NG/ML (<3.6); MB/CK RELATIVE INDEX 1.86 (< OR =4)
[2022-03-19 12:51] LABS: ALBUMIN 3.2 GM/DL (3.2-5.2); ALT/SGPT 14 U/L (12-78); BILIRUBIN,DIRECT 0.1 MG/DL (0.0-0.2); BILIRUBIN,TOTAL 0.4 MG/DL (0.2-1.0); BLOOD UREA NITROGEN 11 MG/DL (7-18); CALCIUM LEVEL 9.3 MG/DL (8.8-10.2); CARBON DIOXIDE LEVEL 31 MEQ/L (21-32); CHLORIDE LEVEL 102 MEQ/L (98-107); GLOMERULAR FILTRATION RATE > 60.0 (>32); GLUCOSE, FASTING 124 MG/DL (70-100); POTASSIUM SERUM 4.1 MEQ/L (3.5-5.1); SODIUM LEVEL 139 MEQ/L (136-145); TOTAL PROTEIN 6.6 GM/DL (6.4-8.2)
[2022-03-19 13:45] VITALS: BP 144/67
== END 2022-03-19 13:51 | disposition home or self-care (01) ==
LOC: M ED 09:57 → EDBD 09:57 → M ED 13:51
DX: K59.09 Other constipation (principal); H81.4 Vertigo of central origin; R53.1 Weakness; C79.81 Secondary malignant neoplasm of breast; E11.9 Type 2 diabetes mellitus without complications; E78.5 Hyperlipidemia, unspecified; I10 Essential (primary) hypertension; I44.4 Left anterior fascicular block; I45.10 Unspecified right bundle-branch block; Z88.0 Allergy status to penicillin; Z88.1 Allergy status to other antibiotic agents; Z88.5 Allergy status to narcotic agent; Z88.6 Allergy status to analgesic agent; Z79.4 Long term (current) use of insulin; Z79.899 Other long term (current) drug therapy

== ENCOUNTER → 2022-03-27 | Outpatient (CLI) | payer MEDICARE ==
[~2022-03-27] MED LIST changes: +VENL100T
== END ==
LOC: M ONCR 09:28
PROVIDERS: ATTEND General Practice
DX: C50.911 Malignant neoplasm of unspecified site of right female breast (principal)

== ENCOUNTER 2022-05-05 18:18 | Emergency (ER) | payer MEDICARE ==
[~2022-05-05] VITALS: Ht 152.4 cm; Wt 77.3 kg
[~2022-05-05 18:18] MED LIST changes: +LETR2.5T2 PO
[2022-05-05] MEDS ORDERED: MORPHINE 4 MG/ML 1ML VIAL/SYRINGE IM ONE (21:30)
[2022-05-05 22:58] VITALS: BP 169/76
== END 2022-05-05 23:17 | disposition home or self-care (01) ==
LOC: M ED 18:18 → EDBD 18:18 → M ED 23:17
DX: C50.919 Malignant neoplasm of unspecified site of unspecified female breast (principal); C79.51 Secondary malignant neoplasm of bone; M17.11 Unilateral primary osteoarthritis, right knee; E11.9 Type 2 diabetes mellitus without complications; I10 Essential (primary) hypertension; F41.9 Anxiety disorder, unspecified; F32.A Depression, unspecified; F17.200 Nicotine dependence, unspecified, uncomplicated; Z88.0 Allergy status to penicillin; Z88.1 Allergy status to other antibiotic agents; Z88.5 Allergy status to narcotic agent; Z88.6 Allergy status to analgesic agent; Z88.8 Allergy status to other drugs, medicaments and biological substances; Z79.82 Long term (current) use of aspirin; Z79.4 Long term (current) use of insulin; Z79.811 Long term (current) use of aromatase inhibitors; Z79.899 Other long term (current) drug therapy
CPT/HCPCS: 73502; 73552; 73590; 93971; 96372; 99283; J2270

== ENCOUNTER → 2022-05-07 | Outpatient (CLI) | payer MEDICARE | LOC: M ONCR 15:44 | PROVIDERS: ATTEND General Practice | DX: C50.919 Malignant neoplasm of unspecified site of unspecified female breast (principal); C79.51 Secondary malignant neoplasm of bone; F17.210 Nicotine dependence, cigarettes, uncomplicated; M79.661 Pain in right lower leg; M17.11 Unilateral primary osteoarthritis, right knee; M79.621 Pain in right upper arm; M79.622 Pain in left upper arm; Z92.3 Personal history of irradiation; Z88.0 Allergy status to penicillin; Z88.1 Allergy status to other antibiotic agents; Z88.5 Allergy status to narcotic agent; Z88.8 Allergy status to other drugs, medicaments and biological substances; Z88.6 Allergy status to analgesic agent; Z79.891 Long term (current) use of opiate analgesic; Z79.899 Other long term (current) drug therapy; Z79.82 Long term (current) use of aspirin ==

== ENCOUNTER 2022-05-20 15:09 | Outpatient (RCR) | payer MEDICARE | END 2022-05-20 23:59 | disposition home or self-care (01) | LOC: M ONCR 15:09 | PROVIDERS: ATTEND General Practice | DX: C79.51 Secondary malignant neoplasm of bone (principal); Z85.3 Personal history of malignant neoplasm of breast ==

== ENCOUNTER 2022-05-24 14:27 | Outpatient (RCR) | payer MEDICARE | END 2022-06-19 | LOC: M ONCR 14:27 | PROVIDERS: ATTEND General Practice | DX: C79.51 Secondary malignant neoplasm of bone (principal); C50.912 Malignant neoplasm of unspecified site of left female breast; C50.911 Malignant neoplasm of unspecified site of right female breast; F17.210 Nicotine dependence, cigarettes, uncomplicated ==

== ENCOUNTER → 2022-06-24 | Outpatient (CLI) | payer MEDICARE ==
[2022-06-24 10:55] LABS: BASO # 0.1 10^3/uL (0.0-0.2); BASO % 1.2 % (0.0-1.0); EOS # 0.6 10^3/uL (0.0-0.5); EOS % 6.1 % (0.0-3.0); HEMATOCRIT 50.4 % (36.0-47.0); HEMOGLOBIN 15.9 g/dl (12.0-15.5); LYMPH # 2.8 10^3/uL (1.5-5.0); LYMPH % 27.4 % (24.0-44.0); MEAN CORPUSCULAR HEMOGLOBIN 29.7 pg (27.0-33.0); MEAN CORPUSCULAR HGB CONC 31.5 g/dl (32.0-36.5); MONO # 0.9 10^3/uL (0.0-0.8); MONO % 8.5 % (2.0-8.0); NEUTROPHILS # 5.7 10^3/uL (1.5-8.5); NEUTROPHILS % 56.4 % (36.0-66.0); PLATELET COUNT, AUTOMATED 383 10^3/uL (150-450); RED BLOOD COUNT 5.36 10^6/uL (4.00-5.40); WHITE BLOOD COUNT 10.1 10^3/uL (4.0-10.0)
[2022-06-24 11:24] LABS: HEMOGLOBIN A1c 7.2 % (4.0-6.0)
[2022-06-24 11:36] LABS: ALBUMIN 3.5 G/DL (3.2-5.2); ALKALINE PHOSPHATASE 79 U/L (46-116); ALT/SGPT 11 U/L (7.0-40); AST/SGOT 14 U/L (<34); BILIRUBIN,TOTAL 0.4 MG/DL (0.3-1.2); BLOOD UREA NITROGEN 15 MG/DL (9-23); CALCIUM LEVEL 9.2 MG/DL (8.3-10.6); CARBON DIOXIDE LEVEL 31 MMOL/L (20-31); CHLORIDE LEVEL 100 MMOL/L (98-107); CREATININE FOR GFR 0.52 MG/DL (0.55-1.30); GLOMERULAR FILTRATION RATE > 60.0 (>32); GLUCOSE, FASTING 149 MG/DL (74-106); POTASSIUM SERUM 3.7 MMOL/L (3.5-5.1); SODIUM LEVEL 141 MMOL/L (136-145); TOTAL PROTEIN 6.4 G/DL (5.7-8.2)
[2022-06-25 15:18] LABS: CREATININE, URINE 41.2 MG/DL
[2022-06-25 15:19] LABS: MALB URINE SIEMENS < 5.0 MG/DL; MAU/CREAT RATIO 12.1 MCG/MG (0.0-30.0)
== END ==
LOC: M PLALAB 07:52
PROVIDERS: ATTEND Family Medicine
DX: E11.42 Type 2 diabetes mellitus with diabetic polyneuropathy (principal)

== ENCOUNTER → 2022-08-05 | Outpatient (CLI) | payer MEDICARE | LOC: M PLARAD 13:43 | PROVIDERS: ATTEND Internal Medicine Medical Oncology | DX: C50.812 Malignant neoplasm of overlapping sites of left female breast (principal); R59.9 Enlarged lymph nodes, unspecified | CPT/HCPCS: 78815; A9552 ==

== ENCOUNTER → 2022-08-28 | Outpatient (CLI) | payer MEDICARE ==
[~2022-08-28] MED LIST changes: +DICL20GE TP; +LIDO5DIS41 TOP; +MIRA3350 PO
== END ==
LOC: M ONCR 14:31
PROVIDERS: ATTEND General Practice
DX: C50.919 Malignant neoplasm of unspecified site of unspecified female breast (principal); C79.51 Secondary malignant neoplasm of bone; Z92.3 Personal history of irradiation; F17.210 Nicotine dependence, cigarettes, uncomplicated; Z79.84 Long term (current) use of oral hypoglycemic drugs; Z79.82 Long term (current) use of aspirin; Z79.891 Long term (current) use of opiate analgesic; Z79.899 Other long term (current) drug therapy; Z88.0 Allergy status to penicillin; Z88.5 Allergy status to narcotic agent; Z88.6 Allergy status to analgesic agent

== ENCOUNTER → 2022-08-29 | Outpatient (CLI) | payer MEDICARE ==
[~2022-08-29] VITALS: Ht 152.4 cm; Wt 79.5 kg
[2022-08-29 14:55] VITALS: BP 136/77
== END ==
LOC: M PAL 14:47
PROVIDERS: ATTEND Nurse Practitioner Adult Health
DX: C50.912 Malignant neoplasm of unspecified site of left female breast (principal); C79.51 Secondary malignant neoplasm of bone; C77.9 Secondary and unspecified malignant neoplasm of lymph node, unspecified; E11.9 Type 2 diabetes mellitus without complications; I10 Essential (primary) hypertension; F17.210 Nicotine dependence, cigarettes, uncomplicated; M87.811 Other osteonecrosis, right shoulder; R54 Age-related physical debility; Z51.5 Encounter for palliative care; Z66 Do not resuscitate; Z79.899 Other long term (current) drug therapy; Z79.891 Long term (current) use of opiate analgesic; Z79.82 Long term (current) use of aspirin; Z88.0 Allergy status to penicillin; Z88.1 Allergy status to other antibiotic agents; Z88.5 Allergy status to narcotic agent; Z88.8 Allergy status to other drugs, medicaments and biological substances; Z90.710 Acquired absence of both cervix and uterus; Z80.0 Family history of malignant neoplasm of digestive organs; Z92.3 Personal history of irradiation; Z88.6 Allergy status to analgesic agent

== ENCOUNTER → 2022-09-20 | Outpatient (REF) | payer MEDICARE | LOC: M LAB REF 15:50 | PROVIDERS: ATTEND Nurse Practitioner Adult Health | DX: R30.0 Dysuria (principal) ==

== ENCOUNTER → 2022-09-27 | Outpatient (CLI) | payer MEDICARE ==
[~2022-09-27] MED LIST changes: +ISOVUE-370 76% 100ML VIAL As Ordered ONE
== END ==
LOC: M RAD 12:59
PROVIDERS: ATTEND Internal Medicine Medical Oncology
DX: C50.912 Malignant neoplasm of unspecified site of left female breast (principal)
CPT/HCPCS: 71260; Q9967

== ENCOUNTER → 2022-10-09 | Outpatient (CLI) | payer MEDICARE ==
[~2022-10-09] MED LIST changes: -ISOVUE-370 76% 100ML VIAL As Ordered ONE
[2022-10-09 11:49] LABS: BASO # 0.1 10^3/uL (0.0-0.2); EOS # 0.4 10^3/uL (0.0-0.5); EOS % 5.3 % (0.0-3.0); HEMOGLOBIN 16.6 g/dl (12.0-15.5); LYMPH # 1.9 10^3/uL (1.5-5.0); LYMPH % 22.7 % (24.0-44.0); MEAN CORPUSCULAR HEMOGLOBIN 29.3 pg (27.0-33.0); MEAN CORPUSCULAR HGB CONC 31.9 g/dl (32.0-36.5); MEAN CORPUSCULAR VOLUME 91.7 fl (80.0-96.0); MONO # 0.8 10^3/uL (0.0-0.8); MONO % 9.5 % (2.0-8.0); NEUTROPHILS # 5.1 10^3/uL (1.5-8.5); NEUTROPHILS % 61.1 % (36.0-66.0); PLATELET COUNT, AUTOMATED 331 10^3/uL (150-450); RED BLOOD COUNT 5.67 10^6/uL (4.00-5.40); WHITE BLOOD COUNT 8.3 10^3/uL (4.0-10.0)
[2022-10-09 12:22] LABS: ALBUMIN 3.6 G/DL (3.2-5.2); ALKALINE PHOSPHATASE 75 U/L (46-116); ALT/SGPT 14 U/L (7.0-40); AST/SGOT 20 U/L (<34); BILIRUBIN,TOTAL 0.4 MG/DL (0.3-1.2); BLOOD UREA NITROGEN 19 MG/DL (9-23); CARBON DIOXIDE LEVEL 33 MMOL/L (20-31); CHLORIDE LEVEL 98 MMOL/L (98-107); CHOLESTEROL LEVEL 197 MG/DL (<200); CHOLESTEROL RISK RATIO 3.53 (<5); CREATININE FOR GFR 0.62 MG/DL (0.55-1.30); FREE T4 1.26 NG/DL (0.89-1.76); GLOMERULAR FILTRATION RATE > 60.0 (>32); GLUCOSE, FASTING 129 MG/DL (74-106); HDL CHOLESTEROL 55.8 MG/DL (>40); HEMOGLOBIN A1c 7.4 % (4.0-6.0); LDL CHOLESTEROL 116.6 MG/DL (<100); NON-HDL-C 141.2 MG/DL; POTASSIUM SERUM 3.9 MMOL/L (3.5-5.1); SODIUM LEVEL 139 MMOL/L (136-145); THYROID STIMULATING HORMONE 1.712 uIU/ML (0.55-4.78); TOTAL PROTEIN 6.4 G/DL (5.7-8.2); TRIGLYCERIDES LEVEL 123 MG/DL (<150)
== END ==
LOC: M PLALAB 09:13
PROVIDERS: ATTEND Family Medicine
DX: E11.42 Type 2 diabetes mellitus with diabetic polyneuropathy (principal)

== ENCOUNTER → 2022-11-12 | Outpatient (CLI) | payer MEDICARE ==
[~2022-11-12] VITALS: Ht 152.4 cm; Wt 79.2 kg
[~2022-11-12] MED LIST changes: +PREG25CA PO
[2022-11-12 14:34] VITALS: BP 155/83
== END ==
LOC: M PAL 14:30
PROVIDERS: ATTEND Nurse Practitioner Adult Health
DX: C50.912 Malignant neoplasm of unspecified site of left female breast (principal); C79.51 Secondary malignant neoplasm of bone; C77.9 Secondary and unspecified malignant neoplasm of lymph node, unspecified; E11.9 Type 2 diabetes mellitus without complications; I10 Essential (primary) hypertension; F17.210 Nicotine dependence, cigarettes, uncomplicated; M87.811 Other osteonecrosis, right shoulder; R54 Age-related physical debility; R42 Dizziness and giddiness; R53.83 Other fatigue; Z51.5 Encounter for palliative care; D66 Hereditary factor VIII deficiency; Z79.899 Other long term (current) drug therapy; Z79.891 Long term (current) use of opiate analgesic; Z79.82 Long term (current) use of aspirin; Z88.0 Allergy status to penicillin; Z88.1 Allergy status to other antibiotic agents; Z88.5 Allergy status to narcotic agent; Z88.8 Allergy status to other drugs, medicaments and biological substances; Z90.710 Acquired absence of both cervix and uterus; Z80.0 Family history of malignant neoplasm of digestive organs; Z82.3 Family history of stroke; Z88.6 Allergy status to analgesic agent

== ENCOUNTER → 2022-12-12 | Outpatient (CLI) | payer MEDICARE ==
[~2022-12-12] VITALS: Ht 152.4 cm; Wt 74.9 kg
[~2022-12-12] MED LIST changes: +FARX1TAB5 PO
[2022-12-12 14:39] VITALS: BP 130/81
== END ==
LOC: M PAL 14:31
PROVIDERS: ATTEND Nurse Practitioner Adult Health
DX: C50.919 Malignant neoplasm of unspecified site of unspecified female breast (principal); C79.51 Secondary malignant neoplasm of bone; C77.1 Secondary and unspecified malignant neoplasm of intrathoracic lymph nodes; Z92.3 Personal history of irradiation; Z92.21 Personal history of antineoplastic chemotherapy; Z51.5 Encounter for palliative care; G89.3 Neoplasm related pain (acute) (chronic); R20.8 Other disturbances of skin sensation; K59.00 Constipation, unspecified; R53.1 Weakness; F17.210 Nicotine dependence, cigarettes, uncomplicated; M87.9 Osteonecrosis, unspecified; Z79.891 Long term (current) use of opiate analgesic; Z79.899 Other long term (current) drug therapy; Z88.0 Allergy status to penicillin; Z88.1 Allergy status to other antibiotic agents; Z88.6 Allergy status to analgesic agent; Z88.8 Allergy status to other drugs, medicaments and biological substances; Z66 Do not resuscitate; Z90.710 Acquired absence of both cervix and uterus; Z80.0 Family history of malignant neoplasm of digestive organs; Z80.8 Family history of malignant neoplasm of other organs or systems; Z96.611 Presence of right artificial shoulder joint

== ENCOUNTER → 2023-01-20 | Outpatient (CLI) | payer MEDICARE | LOC: M PLARAD 09:24 | PROVIDERS: ATTEND Student in an Organized Health Care Education/Training Program | DX: C50.919 Malignant neoplasm of unspecified site of unspecified female breast (principal) | CPT/HCPCS: 78815; A9552 ==

== ENCOUNTER → 2023-02-06 | Outpatient (CLI) | payer MEDICARE | LOC: M PAL 13:56 | PROVIDERS: ATTEND Nurse Practitioner Adult Health | DX: C50.919 Malignant neoplasm of unspecified site of unspecified female breast (principal); C79.51 Secondary malignant neoplasm of bone; C77.1 Secondary and unspecified malignant neoplasm of intrathoracic lymph nodes; Z92.3 Personal history of irradiation; Z92.21 Personal history of antineoplastic chemotherapy; Z51.5 Encounter for palliative care; G89.3 Neoplasm related pain (acute) (chronic); R53.1 Weakness; F17.210 Nicotine dependence, cigarettes, uncomplicated; M87.9 Osteonecrosis, unspecified; Z79.891 Long term (current) use of opiate analgesic; Z79.899 Other long term (current) drug therapy; Z88.0 Allergy status to penicillin; Z88.1 Allergy status to other antibiotic agents; Z88.6 Allergy status to analgesic agent; Z88.8 Allergy status to other drugs, medicaments and biological substances; Z66 Do not resuscitate; Z90.710 Acquired absence of both cervix and uterus; Z80.0 Family history of malignant neoplasm of digestive organs; Z80.8 Family history of malignant neoplasm of other organs or systems; Z96.611 Presence of right artificial shoulder joint | CPT/HCPCS: 36415; 80053; 80061; 83036; 84439; 84443; 85025; G0463 ==

== ENCOUNTER → 2023-05-07 | Outpatient (REF) | payer MEDICARE ==
[~2023-05-07] MED LIST changes: +NEOM1SOL19 OTIC
[2023-05-07 11:28] LABS: BASO # 0.1 10^3/uL (0.0-0.2); BASO % 0.9 % (0.0-1.0); EOS # 0.4 10^3/uL (0.0-0.5); EOS % 4.7 % (0.0-3.0); HEMATOCRIT 47.7 % (36.0-47.0); HEMOGLOBIN 16.2 g/dl (12.0-15.5); LYMPH # 1.5 10^3/uL (1.5-5.0); MEAN CORPUSCULAR HEMOGLOBIN 31.6 pg (27.0-33.0); MEAN CORPUSCULAR VOLUME 93.2 fl (80.0-96.0); MONO # 0.7 10^3/uL (0.0-0.8); MONO % 8.2 % (2.0-8.0); NEUTROPHILS # 5.4 10^3/uL (1.5-8.5); PLATELET COUNT, AUTOMATED 322 10^3/uL (150-450); RED BLOOD COUNT 5.12 10^6/uL (4.00-5.40); WHITE BLOOD COUNT 8.1 10^3/uL (4.0-10.0)
[2023-05-07 11:47] LABS: HEMOGLOBIN A1c 6.9 % (4.0-6.0)
[2023-05-07 12:09] LABS: ALBUMIN 3.4 G/DL (3.2-5.2); ALKALINE PHOSPHATASE 64 U/L (46-116); ALT/SGPT 10 U/L (7.0-40); AST/SGOT 11 U/L (<34); BILIRUBIN,TOTAL 0.4 MG/DL (0.3-1.2); BLOOD UREA NITROGEN 21 MG/DL (9-23); CALCIUM LEVEL 9.5 MG/DL (8.3-10.6); CARBON DIOXIDE LEVEL 32 MMOL/L (20-31); CHLORIDE LEVEL 102 MMOL/L (98-107); CHOLESTEROL LEVEL 199 MG/DL (<200); CREATININE FOR GFR 0.65 MG/DL (0.55-1.30); FREE T4 1.13 NG/DL (0.89-1.76); GLOMERULAR FILTRATION RATE > 60.0 (>32); GLUCOSE, FASTING 136 MG/DL (74-106); SODIUM LEVEL 140 MMOL/L (136-145); THYROID STIMULATING HORMONE 1.865 uIU/ML (0.55-4.78); TOTAL PROTEIN 6.3 G/DL (5.7-8.2); TRIGLYCERIDES LEVEL 112 MG/DL (<150)
[2023-05-07 18:33] LABS: CHOLESTEROL RISK RATIO 3.55 (<5); HDL CHOLESTEROL 55.9 MG/DL (>40); LDL CHOLESTEROL 120.7 MG/DL (<100); NON-HDL-C 143.1 MG/DL
== END ==
LOC: M LAB REF 11:01
PROVIDERS: ATTEND Nurse Practitioner Adult Health
DX: E11.42 Type 2 diabetes mellitus with diabetic polyneuropathy (principal)

== ENCOUNTER → 2023-05-13 | Outpatient (CLI) | payer MEDICARE | LOC: M RAD 16:32 | PROVIDERS: ATTEND Internal Medicine Hematology & Oncology | DX: C50.919 Malignant neoplasm of unspecified site of unspecified female breast (principal); S42.202A Unspecified fracture of upper end of left humerus, initial encounter for closed fracture; X58.XXXA Exposure to other specified factors, initial encounter; Y92.9 Unspecified place or not applicable ==

== ENCOUNTER → 2023-05-22 | Outpatient (CLI) | payer MEDICARE ==
[~2023-05-22] MED LIST changes: +FARX1TAB5
== END ==
LOC: M PAL 14:26
PROVIDERS: ATTEND Nurse Practitioner Adult Health
DX: C50.919 Malignant neoplasm of unspecified site of unspecified female breast (principal); C79.51 Secondary malignant neoplasm of bone; C77.1 Secondary and unspecified malignant neoplasm of intrathoracic lymph nodes; S42.202A Unspecified fracture of upper end of left humerus, initial encounter for closed fracture; Z92.3 Personal history of irradiation; Z92.21 Personal history of antineoplastic chemotherapy; Z51.5 Encounter for palliative care; G89.3 Neoplasm related pain (acute) (chronic); R53.1 Weakness; F17.210 Nicotine dependence, cigarettes, uncomplicated; Z79.1 Long term (current) use of non-steroidal anti-inflammatories (NSAID); Z79.82 Long term (current) use of aspirin; Z79.84 Long term (current) use of oral hypoglycemic drugs; Z79.891 Long term (current) use of opiate analgesic; Z79.899 Other long term (current) drug therapy; Z88.0 Allergy status to penicillin; Z88.1 Allergy status to other antibiotic agents; Z88.5 Allergy status to narcotic agent; Z88.6 Allergy status to analgesic agent; Z88.8 Allergy status to other drugs, medicaments and biological substances; Z66 Do not resuscitate; Z90.710 Acquired absence of both cervix and uterus; Z80.0 Family history of malignant neoplasm of digestive organs; Z80.8 Family history of malignant neoplasm of other organs or systems; Z96.611 Presence of right artificial shoulder joint

== ENCOUNTER → 2023-06-03 | Outpatient (CLI) | payer MEDICARE ==
[2023-06-03 13:43] LABS: BASO # 0.1 10^3/uL (0.0-0.2); BASO % 0.8 % (0.0-1.0); EOS # 0.4 10^3/uL (0.0-0.5); EOS % 4.1 % (0.0-3.0); HEMATOCRIT 49.7 % (36.0-47.0); HEMOGLOBIN 16.3 g/dl (12.0-15.5); LYMPH # 3.5 10^3/uL (1.5-5.0); LYMPH % 35.3 % (24.0-44.0); MEAN CORPUSCULAR HEMOGLOBIN 31.3 pg (27.0-33.0); MEAN CORPUSCULAR HGB CONC 32.8 g/dl (32.0-36.5); MEAN CORPUSCULAR VOLUME 95.4 fl (80.0-96.0); MONO # 0.9 10^3/uL (0.0-0.8); MONO % 9.1 % (2.0-8.0); NEUTROPHILS % 50.3 % (36.0-66.0); PLATELET COUNT, AUTOMATED 321 10^3/uL (150-450); RED BLOOD COUNT 5.21 10^6/uL (4.00-5.40)
[2023-06-03 13:56] LABS: PROTHROMBIN TIME 12.9 SECONDS (12.5-14.5)
[2023-06-03 14:13] LABS: ALBUMIN 3.6 G/DL (3.2-5.2); ALKALINE PHOSPHATASE 63 U/L (46-116); ALT/SGPT 10 U/L (7.0-40); AST/SGOT 12 U/L (<34); BILIRUBIN,TOTAL 0.3 MG/DL (0.3-1.2); BLOOD UREA NITROGEN 19 MG/DL (9-23); CALCIUM LEVEL 9.3 MG/DL (8.3-10.6); CARBON DIOXIDE LEVEL 32 MMOL/L (20-31); CHLORIDE LEVEL 103 MMOL/L (98-107); CREATININE FOR GFR 0.61 MG/DL (0.55-1.30); GLOMERULAR FILTRATION RATE > 60.0 (>32); GLUCOSE, FASTING 67 MG/DL (74-106); POTASSIUM SERUM 4.4 MMOL/L (3.5-5.1); SODIUM LEVEL 141 MMOL/L (136-145); TOTAL PROTEIN 6.6 G/DL (5.7-8.2)
[2023-06-03 14:15] LABS: TOTAL 25(OH) VITAMIN D 112.6 NG/ML (20.0-100.0)
== END ==
LOC: M PLALAB 11:04
PROVIDERS: ATTEND Orthopaedic Surgery
DX: M19.012 Primary osteoarthritis, left shoulder (principal); Z79.899 Other long term (current) drug therapy

== ENCOUNTER → 2023-06-24 | Outpatient (CLI) | payer MEDICARE ==
[~2023-06-24] MED LIST changes: +OPTI0.5D2 OU; -OPTI0.5D5 OU
== END ==
LOC: M PAL 08:06
PROVIDERS: ATTEND Nurse Practitioner Family
DX: C50.919 Malignant neoplasm of unspecified site of unspecified female breast (principal); G89.3 Neoplasm related pain (acute) (chronic); S42.202A Unspecified fracture of upper end of left humerus, initial encounter for closed fracture; K59.00 Constipation, unspecified; Z51.5 Encounter for palliative care; F17.210 Nicotine dependence, cigarettes, uncomplicated; Z79.1 Long term (current) use of non-steroidal anti-inflammatories (NSAID); Z79.82 Long term (current) use of aspirin; Z79.84 Long term (current) use of oral hypoglycemic drugs; Z79.891 Long term (current) use of opiate analgesic; Z79.899 Other long term (current) drug therapy; Z80.0 Family history of malignant neoplasm of digestive organs; Z88.0 Allergy status to penicillin; Z88.1 Allergy status to other antibiotic agents; Z88.5 Allergy status to narcotic agent; Z88.6 Allergy status to analgesic agent; Z88.8 Allergy status to other drugs, medicaments and biological substances; Z66 Do not resuscitate; Z90.710 Acquired absence of both cervix and uterus

== ENCOUNTER → 2023-09-09 | Outpatient (CLI) | payer MEDICARE ==
[~2023-09-09] VITALS: Ht 152.4 cm; Wt 79.2 kg
[~2023-09-09] MED LIST changes: +ERGO500029 PO; +tumeric
[2023-09-09 14:44] VITALS: BP 189/99; O2SAT 93
== END ==
LOC: M PAL 14:21
PROVIDERS: ATTEND Nurse Practitioner Adult Health
DX: C50.919 Malignant neoplasm of unspecified site of unspecified female breast (principal); G89.3 Neoplasm related pain (acute) (chronic); S42.202A Unspecified fracture of upper end of left humerus, initial encounter for closed fracture; K59.00 Constipation, unspecified; Z51.5 Encounter for palliative care; F17.210 Nicotine dependence, cigarettes, uncomplicated; Z79.1 Long term (current) use of non-steroidal anti-inflammatories (NSAID); Z79.82 Long term (current) use of aspirin; Z79.84 Long term (current) use of oral hypoglycemic drugs; Z79.891 Long term (current) use of opiate analgesic; Z79.899 Other long term (current) drug therapy; Z80.0 Family history of malignant neoplasm of digestive organs; Z88.0 Allergy status to penicillin; Z88.1 Allergy status to other antibiotic agents; Z88.5 Allergy status to narcotic agent; Z88.6 Allergy status to analgesic agent; Z88.8 Allergy status to other drugs, medicaments and biological substances; Z66 Do not resuscitate; Z90.710 Acquired absence of both cervix and uterus

== ENCOUNTER → 2023-09-15 | Outpatient (CLI) | payer MEDICARE | LOC: M PLARAD 10:18 | PROVIDERS: ATTEND Nurse Practitioner | DX: C50.811 Malignant neoplasm of overlapping sites of right female breast (principal); C50.812 Malignant neoplasm of overlapping sites of left female breast | CPT/HCPCS: 78816; A9552 ==

== ENCOUNTER → 2023-11-06 | Outpatient (CLI) | payer MEDICARE | LOC: M EKG 11:03 | PROVIDERS: ATTEND Orthopaedic Surgery | DX: M19.012 Primary osteoarthritis, left shoulder (principal) ==

== ENCOUNTER 2023-12-28 08:16 | Inpatient (IN) | payer MEDICARE ==
[~2023-12-28] VITALS: Ht 152.4 cm; Wt 83.1 kg
[2023-12-28] VITALS (12 sets, daily range): BP systolic 125–159; BP diastolic 71–79; TEMP 99–99.4; O2SAT 92–97
[2023-12-28] MEDS ORDERED: IPRATROPIUM 0.5MG/ALBUTEROL 2.5MG INH SOL UD 3ML (DUONEB) NEB ONE (08:30)
[2023-12-28] MEDS: ALBUTEROL SULFATE 2.5MG/0.5ML INH NEB SOLN INH ONE (09:00)
[2023-12-28 09:05] LABS: ABG BASE EXCESS 5.3 (-2.0-2.0); ABG HCO3 30.7 MMOL/L (22.0-26.0); ABG O2 SATURATION 94.2 % (95.0-99.0); ABG PARTIAL PRESSURE CO2 47.4 mmHg (35.0-45.0); ABG PARTIAL PRESSURE O2 69.3 mmHg (75.0-100.0); ABG STANDARD HCO3 29.2 MMOL/L. (22.0-26.0); ABG TOTAL CO2 32.1 MMOL/L (23.0-31.0); ABG pH (ARTERIAL) 7.429 UNITS (7.350-7.450)
[2023-12-28] MEDS: methylPREDNISolone 125MG 2ML VIAL IV ONE (09:34)
[2023-12-28 09:39] LABS: BASO % 0.3 % (0.0-1.0); EOS % 0.4 % (0.0-3.0); HEMATOCRIT 44.5 % (36.0-47.0); HEMOGLOBIN 14.7 g/dl (12.0-15.5); LYMPH # 1.3 10^3/uL (1.5-5.0); LYMPH % 14.2 % (24.0-44.0); MEAN CORPUSCULAR HEMOGLOBIN 30.7 pg (27.0-33.0); MEAN CORPUSCULAR VOLUME 92.9 fl (80.0-96.0); MONO # 0.5 10^3/uL (0.0-0.8); MONO % 5.7 % (2.0-8.0); NEUTROPHILS # 7.3 10^3/uL (1.5-8.5); NEUTROPHILS % 78.9 % (36.0-66.0); PLATELET COUNT, AUTOMATED 149 10^3/uL (150-450); RED BLOOD COUNT 4.79 10^6/uL (4.00-5.40); WHITE BLOOD COUNT 9.3 10^3/uL (4.0-10.0)
[2023-12-28 09:46] LABS: LIPASE 29 U/L (12-53)
[2023-12-28 09:47] LABS: CK-MB VALUE MASS < 1.0 NG/ML (<3.6)
[2023-12-28 09:48] LABS: ALBUMIN 2.8 G/DL (3.2-5.2); ALKALINE PHOSPHATASE 65 U/L (46-116); ALT/SGPT 14 U/L (7.0-40); AST/SGOT 26 U/L (<34); BILIRUBIN,DIRECT < 0.1 MG/DL (<0.4); BILIRUBIN,TOTAL 0.2 MG/DL (0.3-1.2); BLOOD UREA NITROGEN 18 MG/DL (9-23); CALCIUM LEVEL 8.6 MG/DL (8.3-10.6); CARBON DIOXIDE LEVEL 35 MMOL/L (20-31); CHLORIDE LEVEL 105 MMOL/L (98-107); CREATININE FOR GFR 0.54 MG/DL (0.55-1.30); GLOMERULAR FILTRATION RATE > 60.0 (>32); GLUCOSE, FASTING 138 MG/DL (74-106); POTASSIUM SERUM 5.4 MMOL/L (3.5-5.1); SODIUM LEVEL 143 MMOL/L (136-145); TOTAL PROTEIN 5.7 G/DL (5.7-8.2)
[2023-12-28 09:49] LABS: THYROXINE (T4) 12.7 UG/DL (4.5-10.9)
[2023-12-28 09:50] LABS: THYROID STIMULATING HORMONE 1.437 uIU/ML (0.55-4.78)
[2023-12-28 09:52] LABS: CPK CREATINE PHOSPHOKINASE 232 U/L (34-145); MB/CK RELATIVE INDEX 0.43 (< OR =4)
[2023-12-28 09:58] LABS: CK-MB VALUE MASS < 1.0 NG/ML (<3.6); CPK CREATINE PHOSPHOKINASE 224 U/L (34-145); MB/CK RELATIVE INDEX 0.44 (< OR =4)
[2023-12-28] MEDS ORDERED: ISOVUE-370 76% 100ML VIAL As Ordered ONE (09:59)
[2023-12-28] MEDS: ACETAMINOPHEN *IV* 1,000 MG in IV 1 EA IV ONE (10:10)
[2023-12-28] MEDS: LIDOCAINE 2% 5ML JELLY UROJET TOP ONE (10:45)
[2023-12-28] MEDS: NS 1,000 ML IV ONE (11:32)
[2023-12-28] MEDS: cefTRIAXone SOD 1 GM in D5W MINI-BAG PLUS 50 ML IV ONE (11:33)
[2023-12-28] MEDS: DOXYCYCLINE HYCLATE 100 MG in D5W MINI-BAG PLUS 100 ML IV ONE (12:40)
[2023-12-28] MEDS ORDERED: MAALOX 30 ML SUSP *UDC PO PRN (13:05)
[2023-12-28] MEDS: ALBUTEROL SULFATE 2.5MG/0.5ML INH NEB SOLN NEB STA (13:51)
[2023-12-28 13:53] LABS: PROCALCITONIN 1.33 ng/ml
[2023-12-28] MEDS ORDERED: DEXTROSE 50% 50ML SYRINGE IV PRN (13:55)
[2023-12-28] MEDS ORDERED: GLUCOSE 4 GM CHEW PO PRN (13:55)
[2023-12-28] MEDS ORDERED: GLUCAGON INJ 1MG VIAL SC PRN (13:55)
[2023-12-28] MEDS: hydroCHLOROthiazide 12.5 MG CAPSULE PO SCH (14:23)
[2023-12-28 14:37] LABS: FREE T4 1.17 NG/DL (0.89-1.76)
[2023-12-28] MEDS ORDERED: MORP15TA2 PO (14:45)
[2023-12-28] MEDS ORDERED: SENN-188 PO (14:45)
[2023-12-28] MEDS ORDERED: DAPA10TA5 PO (14:45)
[2023-12-28] MEDS ORDERED: VITA100093 PO (14:45)
[2023-12-28] MEDS ORDERED: DOCU100C16 PO (14:45)
[2023-12-28] MEDS ORDERED: ASPI-255 PO (14:45)
[2023-12-28] MEDS ORDERED: HOME MED LIST COMPLETE! XX SCH (14:55)
[2023-12-28 15:12] LABS: BLOOD UREA NITROGEN 18 MG/DL (9-23); CALCIUM LEVEL 8.5 MG/DL (8.3-10.6); CARBON DIOXIDE LEVEL 32 MMOL/L (20-31); CHLORIDE LEVEL 105 MMOL/L (98-107); CREATININE FOR GFR 0.58 MG/DL (0.55-1.30); FREE T3 2.8 PG/ML (2.3-4.2); GLOMERULAR FILTRATION RATE > 60.0 (>32); GLUCOSE, FASTING 134 MG/DL (74-106); MAGNESIUM LEVEL 1.8 MG/DL (1.8-2.4); POTASSIUM SERUM 4.1 MMOL/L (3.5-5.1); SODIUM LEVEL 144 MMOL/L (136-145)
[2023-12-28] MEDS: ACETAMINOPHEN TAB 650MG DOSE (2X325MG) PO PRN (18:16)
[2023-12-28] MEDS: INSULIN LISPRO (NovoLOG) PER UNIT SC SCH ×2 (18:16→20:33)
[2023-12-28] MEDS ORDERED: PILL CUTTER 1 EACH XX PRN (21:25)
[2023-12-28] MEDS: ONDANSETRON 4MG ORAL DISINTEGRATING TAB PO PRN (21:34)
[2023-12-28] MEDS: MORPHINE 30 MG TAB **MSIR PO SCH (21:34)
[2023-12-28] MEDS: ENOXAPARIN 40MG/0.4ML SYRINGE (J1650 PER 10MG) SC SCH (21:34)
[2023-12-29] VITALS (26 sets, daily range): BP systolic 143–168; BP diastolic 67–81; TEMP 97–98.7; O2SAT 89–99
[2023-12-29 06:55] LABS: BLOOD UREA NITROGEN 9 MG/DL (9-23); CALCIUM LEVEL 8.1 MG/DL (8.3-10.6); CARBON DIOXIDE LEVEL 32 MMOL/L (20-31); CHLORIDE LEVEL 104 MMOL/L (98-107); CREATININE FOR GFR 0.48 MG/DL (0.55-1.30); GLOMERULAR FILTRATION RATE > 60.0 (>32); GLUCOSE, FASTING 128 MG/DL (74-106); MAGNESIUM LEVEL 1.7 MG/DL (1.8-2.4); POTASSIUM SERUM 3.6 MMOL/L (3.5-5.1); SODIUM LEVEL 143 MMOL/L (136-145)
[2023-12-29] MEDS: LACTOBACILLUS ACIDOPHILUS CAP (BACID) PO SCH (08:27)
[2023-12-29] MEDS: MAGNESIUM OXIDE 400MG TAB (MAG-OX) PO ONE (08:29)
[2023-12-29] MEDS: guaiFENesin ER TABLET 600 MG TAB PO SCH (10:55)
[2023-12-29] MEDS: IPRATROPIUM 0.5MG/ALBUTEROL 2.5MG INH SOL UD 3ML (DUONEB) NEB PRN (11:35)
[2023-12-29] MEDS: BENZONATATE 100MG CAPSULE PO SCH (13:29)
[2023-12-29] MEDS: **hydrALAZINE** 10 MG TAB PO ONE (17:08)
[2023-12-29 18:15] LABS: PROCALCITONIN 1.17 ng/ml
[2023-12-30] VITALS (8 sets, daily range): BP systolic 137–162; BP diastolic 73–81; TEMP 97.1–98.5; O2SAT 93–94
[2023-12-30] MEDS: MORPHINE 2 MG/ML 1ML VIAL IV PRN (04:32)
[2023-12-30 06:13] LABS: BASO % 0.2 % (0.0-1.0); EOS % 0.3 % (0.0-3.0); HEMATOCRIT 41.4 % (36.0-47.0); HEMOGLOBIN 13.8 g/dl (12.0-15.5); LYMPH # 1.9 10^3/uL (1.5-5.0); LYMPH % 19.5 % (24.0-44.0); MEAN CORPUSCULAR HEMOGLOBIN 30.8 pg (27.0-33.0); MEAN CORPUSCULAR HGB CONC 33.3 g/dl (32.0-36.5); MEAN CORPUSCULAR VOLUME 92.4 fl (80.0-96.0); MONO # 0.8 10^3/uL (0.0-0.8); MONO % 8.7 % (2.0-8.0); NEUTROPHILS # 6.9 10^3/uL (1.5-8.5); NEUTROPHILS % 70.9 % (36.0-66.0); PLATELET COUNT, AUTOMATED 167 10^3/uL (150-450); RED BLOOD COUNT 4.48 10^6/uL (4.00-5.40); WHITE BLOOD COUNT 9.7 10^3/uL (4.0-10.0)
[2023-12-30 06:43] LABS: BLOOD UREA NITROGEN 7 MG/DL (9-23); CALCIUM LEVEL 8.3 MG/DL (8.3-10.6); CARBON DIOXIDE LEVEL 36 MMOL/L (20-31); CHLORIDE LEVEL 102 MMOL/L (98-107); CREATININE FOR GFR 0.45 MG/DL (0.55-1.30); GLOMERULAR FILTRATION RATE > 60.0 (>32); GLUCOSE, FASTING 121 MG/DL (74-106); MAGNESIUM LEVEL 1.8 MG/DL (1.8-2.4); POTASSIUM SERUM 3.7 MMOL/L (3.5-5.1); SODIUM LEVEL 143 MMOL/L (136-145)
[2023-12-30 06:48] LABS: PROCALCITONIN 0.81 ng/ml
[2023-12-30] MEDS: PANTOPRAZOLE 40MG TAB (PROTONIX) PO SCH (10:56)
[2023-12-30] MEDS: MOM 30ML SUSPENSION UDC PO PRN (15:25)
[2023-12-30] MEDS ORDERED: DOCUSATE SODIUM 100MG CAPSULE PO SCH (21:00)
[2023-12-30] MEDS ORDERED: SENNA 8.6 MG TAB (SENOKOT) PO SCH (21:00)
[2023-12-31] VITALS (12 sets, daily range): BP systolic 121–149; BP diastolic 59–82; TEMP 96.8–97.3; O2SAT 88–96
[2023-12-31] MEDS: RAMELTEON 8 MG TAB (ROZEREM) PO ONE (00:29)
[2023-12-31 06:27] LABS: BASO % 0.4 % (0.0-1.0); EOS # 0.1 10^3/uL (0.0-0.5); EOS % 1.2 % (0.0-3.0); HEMOGLOBIN 13.8 g/dl (12.0-15.5); LYMPH # 1.8 10^3/uL (1.5-5.0); LYMPH % 24.3 % (24.0-44.0); MEAN CORPUSCULAR HEMOGLOBIN 30.3 pg (27.0-33.0); MEAN CORPUSCULAR HGB CONC 32.9 g/dl (32.0-36.5); MEAN CORPUSCULAR VOLUME 92.3 fl (80.0-96.0); MONO # 0.9 10^3/uL (0.0-0.8); NEUTROPHILS # 4.6 10^3/uL (1.5-8.5); NEUTROPHILS % 61.7 % (36.0-66.0); PLATELET COUNT, AUTOMATED 206 10^3/uL (150-450); RED BLOOD COUNT 4.55 10^6/uL (4.00-5.40); WHITE BLOOD COUNT 7.5 10^3/uL (4.0-10.0)
[2023-12-31 07:32] LABS: BLOOD UREA NITROGEN 9 MG/DL (9-23); CALCIUM LEVEL 8.3 MG/DL (8.3-10.6); CARBON DIOXIDE LEVEL 36 MMOL/L (20-31); CHLORIDE LEVEL 100 MMOL/L (98-107); GLOMERULAR FILTRATION RATE > 60.0 (>32); GLUCOSE, FASTING 131 MG/DL (74-106); MAGNESIUM LEVEL 1.9 MG/DL (1.8-2.4); POTASSIUM SERUM 3.4 MMOL/L (3.5-5.1); SODIUM LEVEL 140 MMOL/L (136-145)
[2023-12-31] MEDS: POTASSIUM CHLORIDE 10MEQ SR TABLET PO ONE (08:17)
[2023-12-31] MEDS: KCL 10MEQ/100ML SWI (KRUN) 10 MEQ in IV 1 EA IV ONE (08:17)
[2023-12-31] MEDS: DOCUSATE SODIUM 100MG CAPSULE PO SCH (09:00)
[2023-12-31] MEDS: CelecoXIB (CeleBREX) 100 MG CAP PO SCH (09:25)
[2023-12-31] MEDS: ASPIRIN ENTERIC 325MG TAB PO SCH (09:25)
[2023-12-31] MEDS: VITAMIN D 1,000 INTERNATIONAL UNITS TABLET PO SCH (09:25)
[2023-12-31] MEDS: VENLAFAXINE **XR** 75MG CAPSULE PO SCH (09:26)
[2023-12-31] MEDS: TELMISARTAN 20 MG TAB PO SCH (09:26)
[2023-12-31] MEDS: MECLIZINE 12.5 MG TAB PO PRN (14:46)
[2023-12-31] MEDS: ARTIFICIAL TEARS DROPS 15ML BTL (VISINE DRY RELIEF) OU SCH (15:33)
[2024-01-01 03:53] VITALS: BP 120/61; TEMP 97.9; O2SAT 95
[2024-01-01 06:21] LABS: BASO % 0.5 % (0.0-1.0); EOS # 0.2 10^3/uL (0.0-0.5); EOS % 2.5 % (0.0-3.0); HEMATOCRIT 39.3 % (36.0-47.0); HEMOGLOBIN 13.3 g/dl (12.0-15.5); LYMPH # 2.2 10^3/uL (1.5-5.0); LYMPH % 26.3 % (24.0-44.0); MEAN CORPUSCULAR HEMOGLOBIN 30.9 pg (27.0-33.0); MEAN CORPUSCULAR HGB CONC 33.8 g/dl (32.0-36.5); MEAN CORPUSCULAR VOLUME 91.4 fl (80.0-96.0); MONO % 12.2 % (2.0-8.0); NEUTROPHILS # 4.9 10^3/uL (1.5-8.5); PLATELET COUNT, AUTOMATED 220 10^3/uL (150-450); WHITE BLOOD COUNT 8.4 10^3/uL (4.0-10.0)
[2024-01-01 06:50] LABS: BLOOD UREA NITROGEN 16 MG/DL (9-23); CALCIUM LEVEL 7.8 MG/DL (8.3-10.6); CARBON DIOXIDE LEVEL 35 MMOL/L (20-31); CHLORIDE LEVEL 100 MMOL/L (98-107); CREATININE FOR GFR 0.62 MG/DL (0.55-1.30); GLOMERULAR FILTRATION RATE > 60.0 (>32); GLUCOSE, FASTING 128 MG/DL (74-106); MAGNESIUM LEVEL 2.1 MG/DL (1.8-2.4); SODIUM LEVEL 139 MMOL/L (136-145)
[2024-01-01 08:12] VITALS: BP 144/85
[2024-01-01] MEDS: OMEPRAZOLE 20MG CAP PO SCH (08:12)
[2024-01-01 09:00] VITALS: O2SAT 90
[2024-01-01 12:00] VITALS: BP 121/70; TEMP 97.5; O2SAT 93
[2024-01-01] MEDS: MIRALAX *UNIT DOSE* 17GM PACKET PO PRN (15:29)
[2024-01-01 19:46] VITALS: BP 109/58; TEMP 97.5; O2SAT 95
[2024-01-02 04:00] VITALS: BP 137/81; TEMP 97.5; O2SAT 91
[2024-01-02 08:35] LABS: BASO # 0.1 10^3/uL (0.0-0.2); BASO % 0.5 % (0.0-1.0); EOS # 0.4 10^3/uL (0.0-0.5); EOS % 4.7 % (0.0-3.0); HEMATOCRIT 41.3 % (36.0-47.0); HEMOGLOBIN 13.4 g/dl (12.0-15.5); LYMPH # 1.7 10^3/uL (1.5-5.0); LYMPH % 18.1 % (24.0-44.0); MEAN CORPUSCULAR HEMOGLOBIN 30.2 pg (27.0-33.0); MEAN CORPUSCULAR HGB CONC 32.4 g/dl (32.0-36.5); MONO # 1.1 10^3/uL (0.0-0.8); MONO % 12.3 % (2.0-8.0); NEUTROPHILS # 5.9 10^3/uL (1.5-8.5); NEUTROPHILS % 63.7 % (36.0-66.0); PLATELET COUNT, AUTOMATED 281 10^3/uL (150-450); RED BLOOD COUNT 4.44 10^6/uL (4.00-5.40); WHITE BLOOD COUNT 9.2 10^3/uL (4.0-10.0)
[2024-01-02 09:16] LABS: BLOOD UREA NITROGEN 15 MG/DL (9-23); CALCIUM LEVEL 8.3 MG/DL (8.3-10.6); CARBON DIOXIDE LEVEL 34 MMOL/L (20-31); CHLORIDE LEVEL 101 MMOL/L (98-107); GLOMERULAR FILTRATION RATE > 60.0 (>32); GLUCOSE, FASTING 156 MG/DL (74-106); MAGNESIUM LEVEL 2.2 MG/DL (1.8-2.4); POTASSIUM SERUM 4.4 MMOL/L (3.5-5.1); SODIUM LEVEL 140 MMOL/L (136-145)
[2024-01-02 12:00] VITALS: BP 95/58; TEMP 97.5; O2SAT 94
[2024-01-02 19:41] VITALS: BP 110/53; TEMP 97.5; O2SAT 93
[2024-01-03 04:35] VITALS: BP 121/59; TEMP 97.3; O2SAT 94
[2024-01-03 06:27] LABS: BASO # 0.1 10^3/uL (0.0-0.2); BASO % 0.6 % (0.0-1.0); EOS # 0.7 10^3/uL (0.0-0.5); EOS % 8.1 % (0.0-3.0); HEMATOCRIT 37.3 % (36.0-47.0); HEMOGLOBIN 12.3 g/dl (12.0-15.5); LYMPH # 1.8 10^3/uL (1.5-5.0); LYMPH % 21.5 % (24.0-44.0); MEAN CORPUSCULAR HEMOGLOBIN 30.4 pg (27.0-33.0); MEAN CORPUSCULAR VOLUME 92.3 fl (80.0-96.0); MONO # 1.1 10^3/uL (0.0-0.8); MONO % 12.6 % (2.0-8.0); NEUTROPHILS # 4.7 10^3/uL (1.5-8.5); NEUTROPHILS % 56.6 % (36.0-66.0); PLATELET COUNT, AUTOMATED 255 10^3/uL (150-450); RED BLOOD COUNT 4.04 10^6/uL (4.00-5.40); WHITE BLOOD COUNT 8.3 10^3/uL (4.0-10.0)
[2024-01-03 06:52] LABS: BLOOD UREA NITROGEN 23 MG/DL (9-23); CALCIUM LEVEL 7.9 MG/DL (8.3-10.6); CARBON DIOXIDE LEVEL 32 MMOL/L (20-31); CHLORIDE LEVEL 103 MMOL/L (98-107); CREATININE FOR GFR 0.72 MG/DL (0.55-1.30); GLOMERULAR FILTRATION RATE > 60.0 (>32); GLUCOSE, FASTING 129 MG/DL (74-106); MAGNESIUM LEVEL 2.2 MG/DL (1.8-2.4); POTASSIUM SERUM 4.3 MMOL/L (3.5-5.1); SODIUM LEVEL 139 MMOL/L (136-145)
[2024-01-03] MEDS ORDERED: BISACODYL 10MG SUPP PR PRN (07:40)
[2024-01-03] MEDS ORDERED: MOM 30ML SUSPENSION UDC PO PRN (07:40)
[2024-01-03] MEDS: SENOKOT S TAB PO SCH (08:43)
[2024-01-03] MEDS ORDERED: MIRALAX *UNIT DOSE* 17GM PACKET PO SCH (09:00)
[2024-01-03] MEDS: MIRALAX *UNIT DOSE* 17GM PACKET PO PRN (09:07)
[2024-01-03 10:00] VITALS: O2SAT 94
[2024-01-03 11:40] VITALS: BP 114/53; TEMP 97.5; O2SAT 93
[2024-01-03] MEDS: LACTULOSE 20GM/30ML SYRUP UDC PO ONE (17:30)
[2024-01-03] MEDS: FLEET ENEMA PR ONE (17:30)
[2024-01-03 20:20] VITALS: BP 111/54; TEMP 97.5; O2SAT 93
[2024-01-03] MEDS: PREPARATION H SUPP (HEMORRHOID) PR SCH (21:00)
[2024-01-04 04:20] VITALS: BP 108/54; TEMP 97.5; O2SAT 92
[2024-01-04 06:44] LABS: BASO # 0.1 10^3/uL (0.0-0.2); BASO % 0.6 % (0.0-1.0); EOS # 0.6 10^3/uL (0.0-0.5); EOS % 6.5 % (0.0-3.0); HEMATOCRIT 35.2 % (36.0-47.0); HEMOGLOBIN 11.6 g/dl (12.0-15.5); LYMPH # 1.9 10^3/uL (1.5-5.0); LYMPH % 20.9 % (24.0-44.0); MEAN CORPUSCULAR HEMOGLOBIN 30.7 pg (27.0-33.0); MEAN CORPUSCULAR VOLUME 93.1 fl (80.0-96.0); MONO # 1.4 10^3/uL (0.0-0.8); MONO % 14.5 % (2.0-8.0); NEUTROPHILS # 5.3 10^3/uL (1.5-8.5); NEUTROPHILS % 56.7 % (36.0-66.0); PLATELET COUNT, AUTOMATED 268 10^3/uL (150-450); RED BLOOD COUNT 3.78 10^6/uL (4.00-5.40); WHITE BLOOD COUNT 9.3 10^3/uL (4.0-10.0)
[2024-01-04 07:07] LABS: BLOOD UREA NITROGEN 22 MG/DL (9-23); CALCIUM LEVEL 7.8 MG/DL (8.3-10.6); CARBON DIOXIDE LEVEL 34 MMOL/L (20-31); CHLORIDE LEVEL 102 MMOL/L (98-107); CREATININE FOR GFR 0.74 MG/DL (0.55-1.30); GLOMERULAR FILTRATION RATE > 60.0 (>32); GLUCOSE, FASTING 129 MG/DL (74-106); MAGNESIUM LEVEL 2.1 MG/DL (1.8-2.4); POTASSIUM SERUM 4.3 MMOL/L (3.5-5.1); SODIUM LEVEL 139 MMOL/L (136-145)
[2024-01-04] MEDS: BISACODYL 10MG SUPP PR SCH (09:00)
[2024-01-04] MEDS: LACTULOSE 20GM/30ML SYRUP UDC PO SCH (09:30)
[2024-01-04 11:45] VITALS: BP 116/57; TEMP 97.5; O2SAT 95
[2024-01-04 19:50] VITALS: BP 109/59; TEMP 97.7; O2SAT 96
[2024-01-05 03:40] VITALS: BP 99/52; TEMP 97.3; O2SAT 94
[2024-01-05 08:55] LABS: BASO # 0.1 10^3/uL (0.0-0.2); BASO % 0.6 % (0.0-1.0); EOS # 0.4 10^3/uL (0.0-0.5); EOS % 4.6 % (0.0-3.0); HEMOGLOBIN 12.3 g/dl (12.0-15.5); LYMPH # 1.6 10^3/uL (1.5-5.0); MEAN CORPUSCULAR HEMOGLOBIN 30.4 pg (27.0-33.0); MEAN CORPUSCULAR HGB CONC 32.4 g/dl (32.0-36.5); MEAN CORPUSCULAR VOLUME 94.1 fl (80.0-96.0); MONO # 1.2 10^3/uL (0.0-0.8); MONO % 15.2 % (2.0-8.0); NEUTROPHILS # 4.7 10^3/uL (1.5-8.5); NEUTROPHILS % 58.7 % (36.0-66.0); PLATELET COUNT, AUTOMATED 291 10^3/uL (150-450); RED BLOOD COUNT 4.04 10^6/uL (4.00-5.40)
[2024-01-05 09:22] LABS: BLOOD UREA NITROGEN 18 MG/DL (9-23); CALCIUM LEVEL 8.1 MG/DL (8.3-10.6); CARBON DIOXIDE LEVEL 35 MMOL/L (20-31); CHLORIDE LEVEL 102 MMOL/L (98-107); CREATININE FOR GFR 0.72 MG/DL (0.55-1.30); GLOMERULAR FILTRATION RATE > 60.0 (>32); GLUCOSE, FASTING 187 MG/DL (74-106); MAGNESIUM LEVEL 2.2 MG/DL (1.8-2.4); POTASSIUM SERUM 4.4 MMOL/L (3.5-5.1); SODIUM LEVEL 140 MMOL/L (136-145)
[2024-01-05] MEDS ORDERED: BISACODYL 10MG SUPP PR PRN (10:25)
[2024-01-05 12:00] VITALS: BP 99/51; TEMP 97.5; O2SAT 95
[2024-01-05] MEDS ORDERED: SENOKOT S TAB PO PRN (12:35)
[2024-01-05 20:24] VITALS: BP 115/63; TEMP 97.5; O2SAT 94
[2024-01-05 20:26] VITALS: O2SAT 73
[2024-01-05 20:38] VITALS: O2SAT 92
[2024-01-05 20:44] VITALS: O2SAT 95
[2024-01-06 04:41] VITALS: BP 118/64; TEMP 97; O2SAT 95
[2024-01-06 05:06] VITALS: O2SAT 94
[2024-01-06 06:25] LABS: BASO # 0.1 10^3/uL (0.0-0.2); BASO % 0.8 % (0.0-1.0); EOS # 0.5 10^3/uL (0.0-0.5); EOS % 6.1 % (0.0-3.0); HEMATOCRIT 34.7 % (36.0-47.0); HEMOGLOBIN 11.4 g/dl (12.0-15.5); LYMPH # 1.8 10^3/uL (1.5-5.0); LYMPH % 21.2 % (24.0-44.0); MEAN CORPUSCULAR HEMOGLOBIN 30.8 pg (27.0-33.0); MEAN CORPUSCULAR HGB CONC 32.9 g/dl (32.0-36.5); MEAN CORPUSCULAR VOLUME 93.8 fl (80.0-96.0); MONO # 1.3 10^3/uL (0.0-0.8); MONO % 15.6 % (2.0-8.0); NEUTROPHILS # 4.7 10^3/uL (1.5-8.5); NEUTROPHILS % 55.8 % (36.0-66.0); PLATELET COUNT, AUTOMATED 271 10^3/uL (150-450); WHITE BLOOD COUNT 8.5 10^3/uL (4.0-10.0)
[2024-01-06 06:40] LABS: BLOOD UREA NITROGEN 20 MG/DL (9-23); CALCIUM LEVEL 7.9 MG/DL (8.3-10.6); CARBON DIOXIDE LEVEL 36 MMOL/L (20-31); CHLORIDE LEVEL 103 MMOL/L (98-107); CREATININE FOR GFR 0.69 MG/DL (0.55-1.30); GLOMERULAR FILTRATION RATE > 60.0 (>32); GLUCOSE, FASTING 140 MG/DL (74-106); MAGNESIUM LEVEL 2.2 MG/DL (1.8-2.4); POTASSIUM SERUM 4.3 MMOL/L (3.5-5.1); SODIUM LEVEL 140 MMOL/L (136-145)
[2024-01-06 12:00] VITALS: BP 118/62; TEMP 97.5; O2SAT 95
[2024-01-06 20:19] VITALS: BP 109/54; TEMP 97.7; O2SAT 95
[2024-01-06] MEDS: guaiFENesin ER TABLET 600 MG TAB PO SCH (20:58)
[2024-01-07 04:35] VITALS: BP 124/66; TEMP 97; O2SAT 96
[2024-01-07 06:11] LABS: BASO # 0.1 10^3/uL (0.0-0.2); BASO % 0.6 % (0.0-1.0); EOS # 0.4 10^3/uL (0.0-0.5); EOS % 4.6 % (0.0-3.0); HEMATOCRIT 34.1 % (36.0-47.0); HEMOGLOBIN 11.1 g/dl (12.0-15.5); LYMPH # 1.8 10^3/uL (1.5-5.0); LYMPH % 21.1 % (24.0-44.0); MEAN CORPUSCULAR HEMOGLOBIN 30.4 pg (27.0-33.0); MEAN CORPUSCULAR HGB CONC 32.6 g/dl (32.0-36.5); MEAN CORPUSCULAR VOLUME 93.4 fl (80.0-96.0); MONO # 1.2 10^3/uL (0.0-0.8); MONO % 13.9 % (2.0-8.0); NEUTROPHILS % 59.4 % (36.0-66.0); PLATELET COUNT, AUTOMATED 295 10^3/uL (150-450); RED BLOOD COUNT 3.65 10^6/uL (4.00-5.40); WHITE BLOOD COUNT 8.4 10^3/uL (4.0-10.0)
[2024-01-07 06:33] LABS: BLOOD UREA NITROGEN 19 MG/DL (9-23); CALCIUM LEVEL 7.9 MG/DL (8.3-10.6); CARBON DIOXIDE LEVEL 35 MMOL/L (20-31); CHLORIDE LEVEL 103 MMOL/L (98-107); CREATININE FOR GFR 0.67 MG/DL (0.55-1.30); GLOMERULAR FILTRATION RATE > 60.0 (>32); GLUCOSE, FASTING 122 MG/DL (74-106); MAGNESIUM LEVEL 2.1 MG/DL (1.8-2.4); POTASSIUM SERUM 4.4 MMOL/L (3.5-5.1); SODIUM LEVEL 137 MMOL/L (136-145)
[2024-01-07] MEDS ORDERED: PROB250C PO (10:53)
== END 2024-01-07 11:15 | DRG 202 ==
LOC: EDBD 08:16 → M ED 08:16 → M ED INP 13:03 → M PCU 15:24 → M MSPAV 12-30 03:36
PROVIDERS: ADMIT Student in an Organized Health Care Education/Training Program; ATTEND Internal Medicine
DX: J20.4 Acute bronchitis due to parainfluenza virus (principal); A08.39 Other viral enteritis; J98.11 Atelectasis; C79.51 Secondary malignant neoplasm of bone; J47.9 Bronchiectasis, uncomplicated; M79.81 Nontraumatic hematoma of soft tissue; I16.0 Hypertensive urgency; E87.5 Hyperkalemia; I10 Essential (primary) hypertension; E11.9 Type 2 diabetes mellitus without complications; E04.2 Nontoxic multinodular goiter; G89.29 Other chronic pain; E87.6 Hypokalemia; F39 Unspecified mood [affective] disorder; K59.00 Constipation, unspecified; K21.9 Gastro-esophageal reflux disease without esophagitis; C50.919 Malignant neoplasm of unspecified site of unspecified female breast; Z88.8 Allergy status to other drugs, medicaments and biological substances; Z88.5 Allergy status to narcotic agent; Z79.82 Long term (current) use of aspirin; Z79.899 Other long term (current) drug therapy; Z92.21 Personal history of antineoplastic chemotherapy; Z92.3 Personal history of irradiation; K44.9 Diaphragmatic hernia without obstruction or gangrene; M19.90 Unspecified osteoarthritis, unspecified site; Z85.048 Personal history of other malignant neoplasm of rectum, rectosigmoid junction, and anus; F41.9 Anxiety disorder, unspecified; F32.A Depression, unspecified

== ENCOUNTER → 2024-01-09 | Outpatient (REF) ==
[~2024-01-09] MED LIST changes: +ASPI-255 PO; +DAPA10TA5 PO; +DOCU100C16 PO; +PROB250C PO; +SENN-188 PO; +VITA100093 PO
[2024-01-09 09:39] LABS: HEMATOCRIT 35.4 % (36.0-47.0); HEMOGLOBIN 11.7 g/dl (12.0-15.5); MEAN CORPUSCULAR HEMOGLOBIN 30.9 pg (27.0-33.0); MEAN CORPUSCULAR HGB CONC 33.1 g/dl (32.0-36.5); MEAN CORPUSCULAR VOLUME 93.4 fl (80.0-96.0); PLATELET COUNT, AUTOMATED 362 10^3/uL (150-450); RED BLOOD COUNT 3.79 10^6/uL (4.00-5.40); WHITE BLOOD COUNT 9.6 10^3/uL (4.0-10.0)
[2024-01-09 10:06] LABS: BLOOD UREA NITROGEN 15 MG/DL (9-23); CALCIUM LEVEL 8.4 MG/DL (8.3-10.6); CARBON DIOXIDE LEVEL 33 MMOL/L (20-31); CHLORIDE LEVEL 103 MMOL/L (98-107); CREATININE FOR GFR 0.66 MG/DL (0.55-1.30); GLOMERULAR FILTRATION RATE > 60.0 (>32); GLUCOSE, FASTING 121 MG/DL (74-106); POTASSIUM SERUM 4.6 MMOL/L (3.5-5.1); SODIUM LEVEL 139 MMOL/L (136-145)
== END ==
PROVIDERS: ATTEND Internal Medicine
DX: R05.9 Cough, unspecified (principal)

== ENCOUNTER → 2024-01-14 | Outpatient (REF) ==
[2024-01-14 09:47] LABS: HEMATOCRIT 41.2 % (36.0-47.0); HEMOGLOBIN 13.3 g/dl (12.0-15.5); MEAN CORPUSCULAR HEMOGLOBIN 30.4 pg (27.0-33.0); MEAN CORPUSCULAR HGB CONC 32.3 g/dl (32.0-36.5); MEAN CORPUSCULAR VOLUME 94.3 fl (80.0-96.0); PLATELET COUNT, AUTOMATED 450 10^3/uL (150-450); RED BLOOD COUNT 4.37 10^6/uL (4.00-5.40); WHITE BLOOD COUNT 7.7 10^3/uL (4.0-10.0)
[2024-01-14 10:09] LABS: BLOOD UREA NITROGEN 18 MG/DL (9-23); CALCIUM LEVEL 8.7 MG/DL (8.3-10.6); CARBON DIOXIDE LEVEL 30 MMOL/L (20-31); CHLORIDE LEVEL 106 MMOL/L (98-107); CREATININE FOR GFR 0.66 MG/DL (0.55-1.30); GLOMERULAR FILTRATION RATE > 60.0 (>32); GLUCOSE, FASTING 126 MG/DL (74-106); POTASSIUM SERUM 4.4 MMOL/L (3.5-5.1); SODIUM LEVEL 140 MMOL/L (136-145)
== END ==
PROVIDERS: ATTEND Internal Medicine
DX: R05.9 Cough, unspecified (principal)

== ENCOUNTER → 2024-01-28 | Outpatient (REF) ==
[2024-01-28 10:53] LABS: BASO # 0.1 10^3/uL (0.0-0.2); BASO % 0.9 % (0.0-1.0); EOS # 0.7 10^3/uL (0.0-0.5); EOS % 8.6 % (0.0-3.0); HEMATOCRIT 43.6 % (36.0-47.0); HEMOGLOBIN 13.5 g/dl (12.0-15.5); LYMPH # 2.1 10^3/uL (1.5-5.0); LYMPH % 27.9 % (24.0-44.0); MEAN CORPUSCULAR HEMOGLOBIN 29.9 pg (27.0-33.0); MEAN CORPUSCULAR VOLUME 96.5 fl (80.0-96.0); MONO # 0.4 10^3/uL (0.0-0.8); MONO % 5.6 % (2.0-8.0); NEUTROPHILS # 4.3 10^3/uL (1.5-8.5); NEUTROPHILS % 56.6 % (36.0-66.0); PLATELET COUNT, AUTOMATED 266 10^3/uL (150-450); RED BLOOD COUNT 4.52 10^6/uL (4.00-5.40); WHITE BLOOD COUNT 7.5 10^3/uL (4.0-10.0)
[2024-01-28 11:27] LABS: ALBUMIN 3.2 G/DL (3.2-5.2); ALKALINE PHOSPHATASE 63 U/L (46-116); ALT/SGPT < 9 U/L (7.0-40); AST/SGOT < 8 U/L (<34); BILIRUBIN,TOTAL 0.3 MG/DL (0.3-1.2); BLOOD UREA NITROGEN 18 MG/DL (9-23); CALCIUM LEVEL 8.3 MG/DL (8.3-10.6); CARBON DIOXIDE LEVEL 31 MMOL/L (20-31); CHLORIDE LEVEL 104 MMOL/L (98-107); CREATININE FOR GFR 0.77 MG/DL (0.55-1.30); GLOMERULAR FILTRATION RATE > 60.0 (>32); GLUCOSE, FASTING 225 MG/DL (74-106); POTASSIUM SERUM 4.1 MMOL/L (3.5-5.1); SODIUM LEVEL 141 MMOL/L (136-145); TOTAL PROTEIN 5.9 G/DL (5.7-8.2)
== END ==
PROVIDERS: ATTEND Internal Medicine
DX: C50.811 Malignant neoplasm of overlapping sites of right female breast (principal); C50.812 Malignant neoplasm of overlapping sites of left female breast; C79.51 Secondary malignant neoplasm of bone

== ENCOUNTER → 2024-02-12 | Outpatient (REF) ==
[2024-02-12 20:02] LABS: ALBUMIN 3.2 G/DL (3.2-5.2); ALKALINE PHOSPHATASE 63 U/L (46-116); ALT/SGPT 11 U/L (7.0-40); AST/SGOT 21 U/L (<34); BILIRUBIN,DIRECT < 0.1 MG/DL (<0.4); BILIRUBIN,TOTAL 0.3 MG/DL (0.3-1.2); BLOOD UREA NITROGEN 14 MG/DL (9-23); CALCIUM LEVEL 8.6 MG/DL (8.3-10.6); CARBON DIOXIDE LEVEL 23 MMOL/L (20-31); CHLORIDE LEVEL 106 MMOL/L (98-107); CREATININE FOR GFR 0.75 MG/DL (0.55-1.30); GLOMERULAR FILTRATION RATE > 60.0 (>32); GLUCOSE, FASTING 135 MG/DL (74-106); POTASSIUM SERUM 5.1 MMOL/L (3.5-5.1); SODIUM LEVEL 140 MMOL/L (136-145); TOTAL PROTEIN 5.9 G/DL (5.7-8.2)
== END ==
PROVIDERS: ATTEND Physician Assistant
DX: C50.919 Malignant neoplasm of unspecified site of unspecified female breast (principal)

== ENCOUNTER → 2024-02-13 | Outpatient (REF) | PROVIDERS: ATTEND Physician Assistant | DX: C50.919 Malignant neoplasm of unspecified site of unspecified female breast (principal); Z53.8 Procedure and treatment not carried out for other reasons ==

== ENCOUNTER → 2024-02-16 | Outpatient (REF) ==
[2024-02-16 12:16] LABS: BASO # 0.1 10^3/uL (0.0-0.2); BASO % 0.9 % (0.0-1.0); EOS # 0.5 10^3/uL (0.0-0.5); EOS % 5.2 % (0.0-3.0); HEMATOCRIT 47.5 % (36.0-47.0); HEMOGLOBIN 15.1 g/dl (12.0-15.5); LYMPH # 1.9 10^3/uL (1.5-5.0); MEAN CORPUSCULAR HEMOGLOBIN 30.7 pg (27.0-33.0); MEAN CORPUSCULAR HGB CONC 31.8 g/dl (32.0-36.5); MEAN CORPUSCULAR VOLUME 96.5 fl (80.0-96.0); MONO # 0.9 10^3/uL (0.0-0.8); NEUTROPHILS # 6.2 10^3/uL (1.5-8.5); NEUTROPHILS % 64.6 % (36.0-66.0); PLATELET COUNT, AUTOMATED 321 10^3/uL (150-450); RED BLOOD COUNT 4.92 10^6/uL (4.00-5.40); WHITE BLOOD COUNT 9.6 10^3/uL (4.0-10.0)
[2024-02-16 12:58] LABS: HEMOGLOBIN A1c 6.3 % (4.0-6.0)
== END ==
PROVIDERS: ATTEND Physician Assistant
DX: C50.919 Malignant neoplasm of unspecified site of unspecified female breast (principal)

== ENCOUNTER → 2024-03-10 | Outpatient (REF) ==
[~2024-03-10] MED LIST changes: +HYDR-643 PO
== END ==
PROVIDERS: ATTEND Internal Medicine
DX: I10 Essential (primary) hypertension (principal); Z53.8 Procedure and treatment not carried out for other reasons

== ENCOUNTER → 2024-03-11 | Outpatient (CLI) | payer MEDICARE ==
[~2024-03-11] VITALS: Ht 152.4 cm; Wt 78.4 kg
[2024-03-11 15:31] VITALS: BP 125/76; O2SAT 96
== END ==
LOC: M PAL 15:22
PROVIDERS: ATTEND Nurse Practitioner Adult Health
DX: G89.3 Neoplasm related pain (acute) (chronic) (principal); C50.919 Malignant neoplasm of unspecified site of unspecified female breast; C79.51 Secondary malignant neoplasm of bone; S42.202A Unspecified fracture of upper end of left humerus, initial encounter for closed fracture; K59.00 Constipation, unspecified; Z51.5 Encounter for palliative care; F17.210 Nicotine dependence, cigarettes, uncomplicated; Z79.1 Long term (current) use of non-steroidal anti-inflammatories (NSAID); Z79.82 Long term (current) use of aspirin; Z79.84 Long term (current) use of oral hypoglycemic drugs; Z79.891 Long term (current) use of opiate analgesic; Z79.899 Other long term (current) drug therapy; Z80.0 Family history of malignant neoplasm of digestive organs; Z88.0 Allergy status to penicillin; Z88.1 Allergy status to other antibiotic agents; Z88.5 Allergy status to narcotic agent; Z88.6 Allergy status to analgesic agent; Z88.8 Allergy status to other drugs, medicaments and biological substances; Z66 Do not resuscitate; Z90.710 Acquired absence of both cervix and uterus

== ENCOUNTER → 2024-03-26 | Outpatient (CLI) | payer MEDICARE | LOC: M WHC 13:37 | PROVIDERS: ATTEND Dietitian, Registered | DX: Z12.31 Encounter for screening mammogram for malignant neoplasm of breast (principal); Z13.820 Encounter for screening for osteoporosis; Z85.3 Personal history of malignant neoplasm of breast; M85.89 Other specified disorders of bone density and structure, multiple sites; R92.313 Mammographic fatty tissue density, bilateral breasts ==

== ENCOUNTER → 2024-04-26 | Outpatient (CLI) | payer MEDICARE | LOC: M RAD 14:27 | PROVIDERS: ATTEND Dietitian, Registered | DX: M79.604 Pain in right leg (principal) ==

== ENCOUNTER → 2024-05-20 | Outpatient (CLI) | payer MEDICARE ==
[~2024-05-20] MED LIST changes: +VENL150C43 PO
== END ==
LOC: M PAL 14:27
PROVIDERS: ATTEND Nurse Practitioner Adult Health
DX: G89.3 Neoplasm related pain (acute) (chronic) (principal); C50.919 Malignant neoplasm of unspecified site of unspecified female breast; F41.8 Other specified anxiety disorders; S42.202S Unspecified fracture of upper end of left humerus, sequela; K59.00 Constipation, unspecified; Z51.5 Encounter for palliative care; F17.210 Nicotine dependence, cigarettes, uncomplicated; Z79.1 Long term (current) use of non-steroidal anti-inflammatories (NSAID); Z79.82 Long term (current) use of aspirin; Z79.84 Long term (current) use of oral hypoglycemic drugs; Z79.891 Long term (current) use of opiate analgesic; Z79.899 Other long term (current) drug therapy; Z85.038 Personal history of other malignant neoplasm of large intestine; Z80.0 Family history of malignant neoplasm of digestive organs; Z88.0 Allergy status to penicillin; Z88.1 Allergy status to other antibiotic agents; Z88.5 Allergy status to narcotic agent; Z88.6 Allergy status to analgesic agent; Z88.8 Allergy status to other drugs, medicaments and biological substances; Z66 Do not resuscitate; Z90.710 Acquired absence of both cervix and uterus; Z92.21 Personal history of antineoplastic chemotherapy; Z92.3 Personal history of irradiation; Z90.49 Acquired absence of other specified parts of digestive tract

== ENCOUNTER → 2024-06-11 | Outpatient (CLI) | payer MEDICARE ==
[~2024-06-11] MED LIST changes: +PROHANCE 279.3MG/ML 15ML VIAL ONE
== END ==
LOC: M PLAIMG 10:49
PROVIDERS: ATTEND Internal Medicine Hematology & Oncology
DX: M54.9 Dorsalgia, unspecified (principal); M79.605 Pain in left leg; M79.604 Pain in right leg; C50.919 Malignant neoplasm of unspecified site of unspecified female breast; M51.26 Other intervertebral disc displacement, lumbar region; M51.27 Other intervertebral disc displacement, lumbosacral region
CPT/HCPCS: 72158; A9576

== ENCOUNTER → 2024-06-15 | Outpatient (REF) | payer MEDICARE ==
[~2024-06-15] MED LIST changes: -PROHANCE 279.3MG/ML 15ML VIAL ONE
[2024-06-15 11:42] LABS: BASO # 0.1 10^3/uL (0.0-0.2); BASO % 1.2 % (0.0-1.0); EOS # 0.4 10^3/uL (0.0-0.5); EOS % 4.2 % (0.0-3.0); HEMATOCRIT 49.6 % (36.0-47.0); HEMOGLOBIN 16.2 g/dl (12.0-15.5); LYMPH # 2.3 10^3/uL (1.5-5.0); LYMPH % 26.7 % (24.0-44.0); MEAN CORPUSCULAR HEMOGLOBIN 29.7 pg (27.0-33.0); MEAN CORPUSCULAR HGB CONC 32.7 g/dl (32.0-36.5); MONO # 0.7 10^3/uL (0.0-0.8); MONO % 8.2 % (2.0-8.0); NEUTROPHILS # 5.1 10^3/uL (1.5-8.5); NEUTROPHILS % 59.4 % (36.0-66.0); PLATELET COUNT, AUTOMATED 331 10^3/uL (150-450); RED BLOOD COUNT 5.45 10^6/uL (4.00-5.40); WHITE BLOOD COUNT 8.6 10^3/uL (4.0-10.0)
[2024-06-15 12:16] LABS: ALBUMIN 3.5 G/DL (3.2-5.2); ALKALINE PHOSPHATASE 63 U/L (35-104); ALT/SGPT 11 U/L (7.0-40); AST/SGOT 8 U/L (<34); BILIRUBIN,TOTAL 0.5 MG/DL (0.3-1.2); BLOOD UREA NITROGEN 17 MG/DL (9-23); CALCIUM LEVEL 9.7 MG/DL (8.3-10.6); CARBON DIOXIDE LEVEL 31 MMOL/L (20-31); CHLORIDE LEVEL 103 MMOL/L (98-107); CHOLESTEROL LEVEL 226 MG/DL (<200); CHOLESTEROL RISK RATIO 3.57 (<5); CREATININE FOR GFR 0.68 MG/DL (0.55-1.30); FREE T4 1.25 NG/DL (0.89-1.76); GLOMERULAR FILTRATION RATE > 60.0 (>32); GLUCOSE, FASTING 123 MG/DL (74-106); HDL CHOLESTEROL 63.3 MG/DL (>40); LDL CHOLESTEROL 141.1 MG/DL (<100); NON-HDL-C 162.7 MG/DL; POTASSIUM SERUM 4.1 MMOL/L (3.5-5.1); SODIUM LEVEL 141 MMOL/L (136-145); TOTAL PROTEIN 6.8 G/DL (5.7-8.2); TRIGLYCERIDES LEVEL 108 MG/DL (<150)
[2024-06-15 12:17] LABS: THYROID STIMULATING HORMONE 1.639 uIU/ML (0.55-4.78)
== END ==
LOC: M LAB REF 10:24 → M LABDRAWP 10:24
PROVIDERS: ATTEND Family Medicine
DX: E78.2 Mixed hyperlipidemia (principal); E11.42 Type 2 diabetes mellitus with diabetic polyneuropathy

== ENCOUNTER → 2024-06-25 | Outpatient (CLI) | payer MEDICARE | LOC: M RAD 11:26 | PROVIDERS: ATTEND Internal Medicine Hematology & Oncology | DX: M79.89 Other specified soft tissue disorders (principal); M25.511 Pain in right shoulder; Z85.3 Personal history of malignant neoplasm of breast; Z96.611 Presence of right artificial shoulder joint; M19.011 Primary osteoarthritis, right shoulder; M25.512 Pain in left shoulder ==

== ENCOUNTER → 2024-07-20 | Outpatient (CLI) | payer MEDICARE ==
[~2024-07-20] VITALS: Ht 152.4 cm; Wt 78.3 kg
[~2024-07-20] MED LIST changes: +[UNRECOGNIZED DRUG - SUPPLY]
[2024-07-20 11:05] VITALS: BP 95/58; O2SAT 93
== END ==
LOC: M PAL 10:50
PROVIDERS: ATTEND Family Medicine
DX: Z51.5 Encounter for palliative care (principal); C50.919 Malignant neoplasm of unspecified site of unspecified female breast; C79.51 Secondary malignant neoplasm of bone; R52 Pain, unspecified; F41.8 Other specified anxiety disorders; Z79.1 Long term (current) use of non-steroidal anti-inflammatories (NSAID); Z79.82 Long term (current) use of aspirin; Z79.84 Long term (current) use of oral hypoglycemic drugs; Z85.038 Personal history of other malignant neoplasm of large intestine; Z88.0 Allergy status to penicillin; Z88.1 Allergy status to other antibiotic agents; Z88.5 Allergy status to narcotic agent; Z88.6 Allergy status to analgesic agent; Z88.8 Allergy status to other drugs, medicaments and biological substances; Z66 Do not resuscitate; Z90.49 Acquired absence of other specified parts of digestive tract

== ENCOUNTER → 2024-07-27 | Outpatient (CLI) | payer MEDICARE ==
[~2024-07-27] MED LIST changes: +PROHANCE 279.3MG/ML 15ML VIAL ONE
== END ==
LOC: M PLAIMG 13:46
PROVIDERS: ATTEND Internal Medicine Medical Oncology
DX: M25.511 Pain in right shoulder (principal); M25.512 Pain in left shoulder; Z85.3 Personal history of malignant neoplasm of breast
CPT/HCPCS: 73223; A9576

== ENCOUNTER → 2024-08-12 | Outpatient (CLI) | payer MEDICARE ==
[~2024-08-12] MED LIST changes: -PROHANCE 279.3MG/ML 15ML VIAL ONE
== END ==
LOC: M RAD 08:54
PROVIDERS: ATTEND Internal Medicine Medical Oncology
DX: C50.919 Malignant neoplasm of unspecified site of unspecified female breast (principal); M25.511 Pain in right shoulder; M25.512 Pain in left shoulder; M47.814 Spondylosis without myelopathy or radiculopathy, thoracic region; M19.011 Primary osteoarthritis, right shoulder; M19.012 Primary osteoarthritis, left shoulder
CPT/HCPCS: 78306; A9503

== ENCOUNTER → 2024-09-07 | Outpatient (CLI) | payer MEDICARE ==
[~2024-09-07] MED LIST changes: +FARX1TAB3; +LIDOCAINE 1% MDV 20ML VIAL As Ordered ONE
[2024-09-07 08:25] VITALS: BP 150/77; TEMP 97.2; O2SAT 91
[2024-09-07 08:47] LABS: BASO # 0.1 10^3/uL (0.0-0.2); BASO % 0.9 % (0.0-1.0); EOS # 0.3 10^3/uL (0.0-0.5); EOS % 3.9 % (0.0-3.0); HEMATOCRIT 49.4 % (36.0-47.0); HEMOGLOBIN 16.4 g/dl (12.0-15.5); LYMPH # 1.9 10^3/uL (1.5-5.0); LYMPH % 21.3 % (24.0-44.0); MEAN CORPUSCULAR HEMOGLOBIN 30.7 pg (27.0-33.0); MEAN CORPUSCULAR HGB CONC 33.2 g/dl (32.0-36.5); MEAN CORPUSCULAR VOLUME 92.5 fl (80.0-96.0); MONO # 0.7 10^3/uL (0.0-0.8); MONO % 8.4 % (2.0-8.0); NEUTROPHILS # 5.7 10^3/uL (1.5-8.5); NEUTROPHILS % 65.2 % (36.0-66.0); PLATELET COUNT, AUTOMATED 321 10^3/uL (150-450); RED BLOOD COUNT 5.34 10^6/uL (4.00-5.40); WHITE BLOOD COUNT 8.7 10^3/uL (4.0-10.0)
[2024-09-07 09:19] LABS: ALBUMIN 3.5 G/DL (3.2-5.2); ALKALINE PHOSPHATASE 54 U/L (35-104); ALT/SGPT 11 U/L (7.0-40); AST/SGOT 10 U/L (<34); BILIRUBIN,TOTAL 0.3 MG/DL (0.3-1.2); BLOOD UREA NITROGEN 20 MG/DL (9-23); CALCIUM LEVEL 9.8 MG/DL (8.3-10.6); CARBON DIOXIDE LEVEL 31 MMOL/L (20-31); CHLORIDE LEVEL 105 MMOL/L (98-107); CREATININE FOR GFR 0.71 MG/DL (0.55-1.30); GLOMERULAR FILTRATION RATE > 60.0 (>32); GLUCOSE, FASTING 141 MG/DL (74-106); POTASSIUM SERUM 3.7 MMOL/L (3.5-5.1); SODIUM LEVEL 143 MMOL/L (136-145); TOTAL PROTEIN 6.7 G/DL (5.7-8.2)
== END ==
LOC: M IRPRO 07:55
PROVIDERS: ATTEND Internal Medicine Medical Oncology
DX: C50.919 Malignant neoplasm of unspecified site of unspecified female breast (principal); E04.1 Nontoxic single thyroid nodule

== ENCOUNTER → 2024-09-20 | Outpatient (CLI) | payer MEDICARE ==
[~2024-09-20] VITALS: Ht 152.4 cm; Wt 77.4 kg
[~2024-09-20] MED LIST changes: -LIDOCAINE 1% MDV 20ML VIAL As Ordered ONE
[2024-09-20 13:17] VITALS: BP 154/83; O2SAT 94
== END ==
LOC: M PAL 13:04
PROVIDERS: ATTEND Family Medicine
DX: Z51.5 Encounter for palliative care (principal); C50.912 Malignant neoplasm of unspecified site of left female breast; C79.51 Secondary malignant neoplasm of bone; R53.1 Weakness; Z66 Do not resuscitate; Z85.038 Personal history of other malignant neoplasm of large intestine; Z79.891 Long term (current) use of opiate analgesic; Z79.82 Long term (current) use of aspirin; Z79.84 Long term (current) use of oral hypoglycemic drugs; Z79.899 Other long term (current) drug therapy; Z88.0 Allergy status to penicillin; Z88.1 Allergy status to other antibiotic agents; Z88.5 Allergy status to narcotic agent; Z88.8 Allergy status to other drugs, medicaments and biological substances

== ENCOUNTER 2024-10-14 14:12 | Outpatient (RCR) | payer MEDICARE | END 2024-10-18 | LOC: M PT 14:12 | PROVIDERS: ATTEND Dietitian, Registered | DX: I89.0 Lymphedema, not elsewhere classified (principal); Z85.3 Personal history of malignant neoplasm of breast ==

== ENCOUNTER → 2024-11-17 | Outpatient (RCR) | payer MEDICARE ==
[~2024-11-17] MED LIST changes: +IBRA100C PO; -NYST-13; +NYST0.1C; +PALB100T PO; -PREG25CA PO; +PREG25CA63 PO
== END ==
LOC: M PT 10-21 14:09
PROVIDERS: ATTEND Dietitian, Registered
DX: I89.0 Lymphedema, not elsewhere classified (principal)

== ENCOUNTER → 2024-11-22 | Outpatient (CLI) | payer MEDICARE ==
[~2024-11-22] VITALS: Ht 152.4 cm; Wt 77.6 kg
[2024-11-22 14:58] VITALS: BP 111/88; O2SAT 94
== END ==
LOC: M PAL 14:26
PROVIDERS: ATTEND Physician Assistant
DX: Z51.5 Encounter for palliative care (principal); Z66 Do not resuscitate; C50.919 Malignant neoplasm of unspecified site of unspecified female breast; C79.51 Secondary malignant neoplasm of bone; C18.9 Malignant neoplasm of colon, unspecified; Z90.49 Acquired absence of other specified parts of digestive tract; Z79.891 Long term (current) use of opiate analgesic

== ENCOUNTER → 2025-01-26 | Outpatient (CLI) | payer MEDICARE ==
[~2025-01-26] VITALS: Ht 152.4 cm; Wt 74.8 kg
[~2025-01-26] MED LIST changes: -GING1CAP PO; +GING550C4 PO; +LIDO1ADH93 TOP; -LIDO5DIS41 TOP; +MECL-136; +ONDA-282 PO; +OXYC10TA12 PO
[2025-01-26 15:50] VITALS: BP 105/59; O2SAT 94
== END ==
LOC: M PAL 14:29
PROVIDERS: ATTEND Physician Assistant
DX: Z51.5 Encounter for palliative care (principal); Z66 Do not resuscitate; C50.919 Malignant neoplasm of unspecified site of unspecified female breast; C79.51 Secondary malignant neoplasm of bone; C18.9 Malignant neoplasm of colon, unspecified; Z90.49 Acquired absence of other specified parts of digestive tract; Z79.891 Long term (current) use of opiate analgesic; Z88.1 Allergy status to other antibiotic agents; Z88.0 Allergy status to penicillin; Z88.6 Allergy status to analgesic agent; Z88.5 Allergy status to narcotic agent; Z79.899 Other long term (current) drug therapy

== ENCOUNTER 2025-02-13 07:07 | Emergency (ER) | payer MEDICARE ==
[~2025-02-13] VITALS: Ht 152.4 cm; Wt 72.9 kg
[~2025-02-13 07:07] MED LIST changes: +DILA2TAB6 PO; +HYDR12.510 PO; -HYDR12CA PO
[2025-02-13] MEDS ORDERED: PILL CUTTER 1 EACH XX PRN (07:55)
[2025-02-13] MEDS: MORPHINE SULFATE TAB IMM. REL. 30 MG PO PRN (08:24)
[2025-02-13] MEDS: NS (Normal Saline) 0.9% 1,000 ML IV SCH (08:58)
[2025-02-13 09:36] VITALS: BP 179/86
[2025-02-13] MEDS: TELMISARTAN 20 MG TAB PO ONE (09:36)
[2025-02-13 09:41] LABS: CK-MB VALUE MASS 2.1 NG/ML (<3.6)
[2025-02-13 09:43] LABS: ALT/SGPT 13.0 U/L (7.0-40); AST/SGOT 28.0 U/L (<34); CALCIUM LEVEL 9.0 MG/DL (8.3-10.6); CARBON DIOXIDE LEVEL 29.0 MMOL/L (20-31); CHLORIDE LEVEL 104.0 MMOL/L (98-107); CREATININE FOR GFR 0.67 MG/DL (0.55-1.30); GLOMERULAR FILTRATION RATE 85.1 (>32); POTASSIUM SERUM 4.7 MMOL/L (3.5-5.1); SODIUM LEVEL 145.0 MMOL/L (136-145)
[2025-02-13 09:47] LABS: CPK CREATINE PHOSPHOKINASE 48.0 U/L (34-145); MB/CK RELATIVE INDEX 4.37 (< OR =4)
[2025-02-13 10:00] LABS: BASO # 0.1 10^3/uL (0.0-0.2); BASO % 1.7 % (0.0-1.0); EOS # 0.1 10^3/uL (0.0-0.5); EOS % 0.9 % (0.0-3.0); LYMPH # 1.6 10^3/uL (1.5-5.0); LYMPH % 26.7 % (24.0-44.0); MONO # 0.3 10^3/uL (0.0-0.8); MONO % 4.8 % (2.0-8.0); NEUTROPHILS # 3.8 10^3/uL (1.5-8.5); NEUTROPHILS % 65.6 % (36.0-66.0); PLATELET COUNT, AUTOMATED 272 10^3/uL (150-450)
[2025-02-13] MEDS ORDERED: ISOVUE-370 76% 100 ML VIAL As Ordered ONE (10:04)
[2025-02-13 10:35] LABS: CK-MB VALUE MASS 1.4 NG/ML (<3.6)
[2025-02-13 10:36] LABS: CPK CREATINE PHOSPHOKINASE 26.0 U/L (34-145); MB/CK RELATIVE INDEX 5.38 (< OR =4)
[2025-02-13] MEDS ORDERED: MORP15TA2 PO (11:03)
[2025-02-13] MEDS: ONDANSETRON 4MG 2ML VIAL IV ONE ×2 (11:21→12:44)
[2025-02-13] MEDS ORDERED: MORP-137 PO (14:05)
[2025-02-13 14:42] VITALS: BP 170/77; TEMP 98.1; O2SAT 95
[2025-02-14] MEDS ORDERED: MORP-137 PO (13:08)
== END 2025-02-13 15:10 | disposition home or self-care (01) ==
LOC: M ED 07:07
DX: R07.9 Chest pain, unspecified (principal); C50.919 Malignant neoplasm of unspecified site of unspecified female breast; C40.90 Malignant neoplasm of unspecified bones and articular cartilage of unspecified limb; I45.10 Unspecified right bundle-branch block; I44.4 Left anterior fascicular block; E11.9 Type 2 diabetes mellitus without complications; I10 Essential (primary) hypertension; F41.9 Anxiety disorder, unspecified; E78.5 Hyperlipidemia, unspecified; F17.200 Nicotine dependence, unspecified, uncomplicated; Z88.0 Allergy status to penicillin; Z88.1 Allergy status to other antibiotic agents; Z88.5 Allergy status to narcotic agent; Z88.6 Allergy status to analgesic agent; Z88.8 Allergy status to other drugs, medicaments and biological substances; Z96.611 Presence of right artificial shoulder joint; Z79.1 Long term (current) use of non-steroidal anti-inflammatories (NSAID); Z79.82 Long term (current) use of aspirin; Z79.83 Long term (current) use of bisphosphonates; Z79.899 Other long term (current) drug therapy
CPT/HCPCS: 71045; 71275; 80048; 80076; 82550; 82553; 83690; 84443; 84484; 85025; 93005; 93041; 94760; 96361; 96374; 96376; 99285; J2405; Q9967

== ENCOUNTER → 2025-02-23 | Outpatient (CLI) | payer MEDICARE ==
[~2025-02-23] VITALS: Ht 152.4 cm; Wt 74.4 kg
[~2025-02-23] MED LIST changes: +MORP-137 PO
[2025-02-23 14:47] VITALS: BP 132/74; O2SAT 95
== END ==
LOC: M PAL 14:26
PROVIDERS: ATTEND Physician Assistant
DX: Z51.5 Encounter for palliative care (principal); Z66 Do not resuscitate; C50.911 Malignant neoplasm of unspecified site of right female breast; C79.51 Secondary malignant neoplasm of bone; Z85.038 Personal history of other malignant neoplasm of large intestine; Z79.891 Long term (current) use of opiate analgesic; Z88.6 Allergy status to analgesic agent; Z88.1 Allergy status to other antibiotic agents; Z88.0 Allergy status to penicillin; Z88.5 Allergy status to narcotic agent; Z79.899 Other long term (current) drug therapy; Z79.82 Long term (current) use of aspirin; Z79.83 Long term (current) use of bisphosphonates

== ENCOUNTER → 2025-03-24 | Outpatient (CLI) | payer MEDICARE ==
[~2025-03-24] VITALS: Ht 152.4 cm; Wt 74.6 kg
[~2025-03-24] MED LIST changes: +POTA-149
[2025-03-24 15:53] VITALS: BP 130/79; O2SAT 95
== END ==
LOC: M PAL 15:17
PROVIDERS: ATTEND Physician Assistant
DX: Z51.5 Encounter for palliative care (principal); Z66 Do not resuscitate; C79.51 Secondary malignant neoplasm of bone; C18.9 Malignant neoplasm of colon, unspecified; K63.5 Polyp of colon; Z79.891 Long term (current) use of opiate analgesic; Z88.5 Allergy status to narcotic agent; Z88.6 Allergy status to analgesic agent; Z88.8 Allergy status to other drugs, medicaments and biological substances; Z88.0 Allergy status to penicillin; Z88.1 Allergy status to other antibiotic agents; Z79.899 Other long term (current) drug therapy; Z79.82 Long term (current) use of aspirin; Z79.83 Long term (current) use of bisphosphonates

== ENCOUNTER → 2025-03-30 | Outpatient (CLI) | payer MEDICARE ==
[2025-03-30 15:29] LABS: BASO # 0.1 10^3/uL (0.0-0.2); BASO % 2.3 % (0.0-1.0); EOS # 0.2 10^3/uL (0.0-0.5); EOS % 3.2 % (0.0-3.0); LYMPH # 1.7 10^3/uL (1.5-5.0); LYMPH % 36.1 % (24.0-44.0); MONO # 0.4 10^3/uL (0.0-0.8); MONO % 9.2 % (2.0-8.0); NEUTROPHILS # 2.3 10^3/uL (1.5-8.5); NEUTROPHILS % 49.0 % (36.0-66.0); PLATELET COUNT, AUTOMATED 185 10^3/uL (150-450)
[2025-03-30 15:37] LABS: ALT/SGPT 13.0 U/L (7.0-40); AST/SGOT 19.0 U/L (<34); CALCIUM LEVEL 8.8 MG/DL (8.3-10.6); CARBON DIOXIDE LEVEL 29.0 MMOL/L (20-31); CHLORIDE LEVEL 105.0 MMOL/L (98-107); CHOLESTEROL LEVEL 192.0 MG/DL (<200); CHOLESTEROL RISK RATIO 3.01 (<5); CREATININE FOR GFR 0.65 MG/DL (0.55-1.30); GLOMERULAR FILTRATION RATE 85.7 (>32); LDL CHOLESTEROL 108.0 MG/DL (<100); NON-HDL-C 128.4 MG/DL; POTASSIUM SERUM 4.4 MMOL/L (3.5-5.1); SODIUM LEVEL 144.0 MMOL/L (136-145); TRIGLYCERIDES LEVEL 102.0 MG/DL (<150)
[2025-03-30 16:13] LABS: ESTIMATED AVERAGE GLUCOSE 128.0 MG/DL (60-110)
== END ==
LOC: M PLALAB 10:11
PROVIDERS: ATTEND Physician Assistant
DX: I10 Essential (primary) hypertension (principal); E78.2 Mixed hyperlipidemia; Z79.899 Other long term (current) drug therapy

== ENCOUNTER → 2025-05-24 | Outpatient (CLI) | payer MEDICARE ==
[~2025-05-24] MED LIST changes: +OYST1TAB PO
== END ==
LOC: M PAL 13:57
PROVIDERS: ATTEND Physician Assistant
DX: Z51.5 Encounter for palliative care (principal); Z66 Do not resuscitate; C50.911 Malignant neoplasm of unspecified site of right female breast; C79.51 Secondary malignant neoplasm of bone; Z85.038 Personal history of other malignant neoplasm of large intestine; Z79.891 Long term (current) use of opiate analgesic; Z88.5 Allergy status to narcotic agent; Z88.1 Allergy status to other antibiotic agents; Z88.0 Allergy status to penicillin; Z88.6 Allergy status to analgesic agent; Z79.899 Other long term (current) drug therapy; Z79.82 Long term (current) use of aspirin; Z79.83 Long term (current) use of bisphosphonates

== ENCOUNTER → 2025-06-01 | Outpatient (CLI) | payer MEDICARE ==
[2025-06-01 14:05] LABS: ALT/SGPT 12.0 U/L (7.0-40); AST/SGOT 21.0 U/L (<34); BASO # 0.1 10^3/uL (0.0-0.2); BASO % 2.0 % (0.0-1.0); CALCIUM LEVEL 8.9 MG/DL (8.3-10.6); CARBON DIOXIDE LEVEL 28.0 MMOL/L (20-31); CHLORIDE LEVEL 104.0 MMOL/L (98-107); CREATININE FOR GFR 0.71 MG/DL (0.55-1.30); EOS # 0.1 10^3/uL (0.0-0.5); EOS % 2.0 % (0.0-3.0); GLOMERULAR FILTRATION RATE 82.8 (>32); LYMPH # 2.0 10^3/uL (1.5-5.0); LYMPH % 30.7 % (24.0-44.0); MONO # 0.5 10^3/uL (0.0-0.8); MONO % 7.0 % (2.0-8.0); NEUTROPHILS # 3.7 10^3/uL (1.5-8.5); NEUTROPHILS % 58.0 % (36.0-66.0); PLATELET COUNT, AUTOMATED 249 10^3/uL (150-450); POTASSIUM SERUM 4.5 MMOL/L (3.5-5.1); SODIUM LEVEL 143.0 MMOL/L (136-145)
[2025-06-01 14:17] LABS: FREE T4 1.28 NG/DL (0.89-1.76)
[2025-06-01 14:32] LABS: ESTIMATED AVERAGE GLUCOSE 131.0 MG/DL (60-110)
== END ==
LOC: M PLALAB 11:04
PROVIDERS: ATTEND Physician Assistant
DX: E04.9 Nontoxic goiter, unspecified (principal)

== ENCOUNTER → 2025-06-01 | Outpatient (CLI) | payer MEDICARE ==
[~2025-06-01] MED LIST changes: +ISOVUE-370 76% 100 ML VIAL ONE
== END ==
LOC: M PLAIMG 10:53
DX: E04.9 Nontoxic goiter, unspecified (principal); E11.42 Type 2 diabetes mellitus with diabetic polyneuropathy; C50.919 Malignant neoplasm of unspecified site of unspecified female breast; E05.20 Thyrotoxicosis with toxic multinodular goiter without thyrotoxic crisis or storm; R92.1 Mammographic calcification found on diagnostic imaging of breast; R91.8 Other nonspecific abnormal finding of lung field
CPT/HCPCS: 36415; 71260; 74177; 80053; 83036; 84439; 84443; 85025; Q9967

== ENCOUNTER → 2025-07-13 | Outpatient (REF) ==
[~2025-07-13] MED LIST changes: +ACET-683 PO; +APAP325T4 PO; +B-12100021 PO; +CELE1CAP99 PO; +ERGO125013 PO; -FARX1TAB3; +FLEEENE12 PR; +FURO20TA2 PO; +GLUC1VIA14 IM; -ISOVUE-370 76% 100 ML VIAL ONE; +METO25TA4 PO; +MILK400S12 PO; +SENN1TAB85 PO
== END ==
PROVIDERS: ATTEND Internal Medicine
DX: Z02.2 Encounter for examination for admission to residential institution (principal); Z79.899 Other long term (current) drug therapy; Z53.8 Procedure and treatment not carried out for other reasons

== ENCOUNTER → 2025-07-18 | Outpatient (REF) ==
[2025-07-18 13:04] LABS: PLATELET COUNT, AUTOMATED 364 10^3/uL (150-450)
[2025-07-18 13:24] LABS: CALCIUM LEVEL 8.8 MG/DL (8.3-10.6); CARBON DIOXIDE LEVEL 32.0 MMOL/L (20-31); CHLORIDE LEVEL 99.0 MMOL/L (98-107); CREATININE FOR GFR 3.02 MG/DL (0.55-1.30); GLOMERULAR FILTRATION RATE 14.6 (>32); MAGNESIUM LEVEL 2.2 MG/DL (1.8-2.4); POTASSIUM SERUM 4.2 MMOL/L (3.5-5.1); SODIUM LEVEL 140.0 MMOL/L (136-145)
== END ==
PROVIDERS: ATTEND Physician Assistant
DX: I50.9 Heart failure, unspecified (principal)